=== PATIENT | female | born 1995 | race Caucasian/White ===

== ENCOUNTER 2018-08-20 09:40 | Emergency (ER) | payer MEDICAID, SELFPAY ==
[2018-08-20 09:53] VITALS: BP 125/76; PULSE 72; RESP 18; TEMP 37.1; O2SAT 99; BMI 28.0
--- NOTE | 2018-08-20 09:59 | HMH.EDUTC ---
[facility] – [place] Clinical Impression: Excessive vomiting during Disposition: Home, Self-Care Condition on Discharge: Good Instructions: DI for Hyperemesis Gravidarum, Hyperemesis Gravidarum, DI for Morning Sickness, Support (Alternative Therapy), Nausea of (Alternative Therapy) Additional Instructions: *Remember low blood sugar can cause nausea. Have a snack like an apple or glass of milk before bed. *Eat small frequent meals 4 to 6 times a day *Foods like cereal, crackers, toast, potatos and pretzels may help with nausea keep them at your bedside *Avoid spicy acidic foods *Suck on hard candy like peppermint or some sweet or sour candy may help Do not lie down immediately after eating Suggested Snacks to Eat August (Eat them, suck on them, or sniff them.) Bean (bean martínez soda, bean tea, bean jam on toast, bean snaps) Peppermint tea. Crackers. Jell-O. Flavored popsicles. Pretzels. Morning Sickness Tips for Food Food is your enemy and your friend. Eat even if you feel like you will be sick. Eventually, the food will make you feel better so it?s worth it in the long run. Don?t wait too long between meals and snacking. Eat a mixture of protein and carbs/sugars. For example, cheese and apples. In the morning, eat anything that appeals to you. A bowl of cereal is a good option. After you have eaten something appealing, try to eat protein like an egg. If you can eat this, it will carry you till your next snack or meal. Plan for snacking when you?ll be out of the house. Bring a bunch of snacks with you and carry them in your purse. Don ?t be like me and assume you?ll be fine. Prepare for the inevitable and bring food. Take medication as prescribed Follow up with family doctor or OBGYN for further treatment and evaluation of vomiting Straight to ER if any life threatening symptoms or signs of dehydration such as dry skin, tachyacardia, dizziness, feeling faint etc Prescriptions: Promethazine HCl [Phenergan 12.5mg tablet] 12.5 mg PO Q6H PRN #6 tab PRN Reason: Nausea Referrals: Provider,Referral, MD [Primary Care Provider] - As needed Forms: Work/School Release Time of Disposition: 10:22 Medical Decision Making - Harris Inquiry Pt receiving controlled substance: No Harris was queried for this patient: No Vital Signs: 08/20/18 09:53 Temperature 98.7 F Temperature Source Oral Pulse Rate [Right Brachial] 72 Respiratory Rate 18 Blood Pressure [Right Arm] 125/76 Blood Pressure Mean [Right Arm] 92 Blood Pressure Source [Right Arm] Automatic Cuff Blood Pressure Position [Right Arm] Sitting 02 Sat by Pulse Oximetry 99 Oxygen Delivery Method Room Air - Physician Consults Physician Consulted: Dr Stout Time: 10:03 Reason -: Gynocological Eval/Care Comment/Response: Dr Stout paged awaiting call back [phone] Dr Stout called back discussed patient complaining of vomiting and not being able to keep anything down and she had already tried dramamine advised safe for patient to have phenergan, zofran or reglan [facility] – [place] HPI - General Stated complaint: 7 weeks and throwing up Time Seen by Provider: 08/20/18 10:00 Mode of Arrival: Family Vehicle Source of Information: Patient Limitations: No Limitations Description of Symptoms (Recalled from Triage Doc. by RN): c/o nausea and vomiting and is 7 weeks HEENT Symptoms (Recalled from RN notes): No Resp Symptoms (Recalled from RN notes): No Skin Symptoms (Recalled from RN notes): No MS Symptoms (Recalled from RN notes): No Functional Status (Recalled from RN notes): n/a - History of Present Illness Provider Complaint: Patient states that she is 7 weeks OB and has been having nausea and vomiting State that she had this before with her other pregancy State that she has been taking over the counter Dramamine but it hasn't helped States that they give her something durning her last pregnacy to help with vomiting but she i
--- NOTE | 2018-08-20 10:03 | ED_ITS ---
[facility] [place]ression: Excessive vomiting during Disposition: Home, Self-Care Condition on Discharge: Good Instructions: DI for Hyperemesis Gravidarum, Hyperemesis Gravidarum, DI for Morning Sickness, Support (Alternative Therapy), Nausea of (Alternative Therapy) Additional Instructions: *Remember low blood sugar can cause nausea. Have a snack like an apple or glass of milk before bed. *Eat small frequent meals 4 to 6 times a day *Foods like cereal, crackers, toast, potatos and pretzels may help with nausea keep them at your bedside *Avoid spicy acidic foods *Suck on hard candy like peppermint or some sweet or sour candy may help Do not lie down immediately after eating Suggested Snacks to Eat * August (Eat them, suck on them, or sniff them.) * Bean (bean martínez soda, bean tea, bean jam on toast, bean snaps) * Peppermint tea. * Crackers. * Jell-O. * Flavored popsicles. * Pretzels. Morning Sickness Tips for Food * Food is your enemy and your friend. Eat even if you feel like you will be sick. Eventually, the food will make you feel better so it?s worth it in the long run. * Don?t wait too long between meals and snacking. * Eat a mixture of protein and carbs/sugars. For example, cheese and apples. * In the morning, eat anything that appeals to you. A bowl of cereal is a good option. After you have eaten something appealing, try to eat protein like an egg. If you can eat this, it will carry you till your next snack or meal. * Plan for snacking when you?ll be out of the house. Bring a bunch of snacks with you and carry them in your purse. Don * ?t be like me and assume you?ll be fine. Prepare for the inevitable and bring food. Take medication as prescribed Follow up with family doctor or OBGYN for further treatment and evaluation of vomiting Straight to ER if any life threatening symptoms or signs of dehydration such as dry skin, tachyacardia, dizziness, feeling faint etc Prescriptions: Promethazine HCl [Phenergan 12.5mg tablet] 12.5 mg PO Q6H PRN #6 tab PRN Reason: Nausea Referrals: Provider,Referral, MD [Primary Care Provider] - As needed Forms: Work/School Release Time of Disposition: 10:22 Medical Decision Making - Harris Inquiry Pt receiving controlled substance: No Harris was queried for this patient: No Vital Signs: 08/20/18 09:53 Temperature 98.7 F Temperature Source Oral Pulse Rate [Right Brachial] 72 Respiratory Rate 18 Blood Pressure [Right Arm] 125/76 Blood Pressure Mean [Right Arm] 92 Blood Pressure Source [Right Arm] Automatic Cuff Blood Pressure Position [Right Arm] Sitting 02 Sat by Pulse Oximetry 99 Oxygen Delivery Method Room Air - Physician Consults Physician Consulted: Dr Stout Time: 10:03 Reason -: Gynocological Eval/Care Comment/Response: Dr Stout paged awaiting call back [phone] Dr Stout called back discussed patient complaining of vomiting and not being able to keep anything down and she had already tried dramamine advised safe for patient to have phenergan, zofran or reglan [facility] [place] - General Stated complaint: 7 weeks and throwing up Time Seen by Provider: 08/20/18 10:00 Mode of Arrival: Family Vehicle Source of Information: Patient Limitations: No Limitations Description of Symptoms (Recalled from Triage Doc. by RN): c/o nausea and vomiting and is 7 weeks HEENT Symptoms (Recalled from RN notes): No
[2018-08-20 10:23] VITALS: BP 125/76; PULSE 72; RESP 18; TEMP 37.1; O2SAT 99
== END 2018-08-20 10:26 | disposition home or self-care (01) ==
PROVIDERS: Emergency Provider Nurse Practitioner
DX: O21.0 Mild hyperemesis gravidarum (principal); Z88.0 Allergy status to penicillin; Z91.040 Latex allergy status; F17.210 Nicotine dependence, cigarettes, uncomplicated
CPT/HCPCS: 99201

== ENCOUNTER 2020-01-21 10:15 | Emergency (ER) | payer OTHER, SELFPAY ==
[2020-01-21 10:20] VITALS: BP 123/90; PULSE 78; RESP 16; TEMP 37; O2SAT 98; BMI 29.2
[2020-01-21 10:24] VITALS: BMI 35.9
--- NOTE | 2020-01-21 10:32 | XR_ITS ---
PROCEDURE: XR PELVIS MIN 3V CLINICAL INDICATION: trauma Posttraumatic pain COMPARISON: No exams were available for comparison TECHNIQUE: XR Pelvis AP View FINDINGS: No fracture or dislocation is evident. Mild sclerosis of the SI joints No lytic or blastic change. IMPRESSION: No acute findings. Dictated by: Jose Garrison MD 01/21/2020 11:47 Jose Garrison MD in [place] 01/21/2020 11:47
--- NOTE | 2020-01-21 10:32 | XR_ITS ---
PROCEDURE: XR COCCYX 2V CLINICAL INDICATION: trauma Posttraumatic pain COMPARISON: No exams were available for comparison FINDINGS: No fracture or dislocation. No lytic or blastic change. There is normal mineralization. There is mild sclerosis of the SI joints. Other findings:None. IMPRESSION: Sclerosis of SI joints otherwise negative Dictated by: Jose Garrison MD 01/21/2020 11:46 Jose Garrison MD in [place] 01/21/2020 11:46
--- NOTE | 2020-01-21 10:34 | HMH.EDFALL ---
ED Disposition Clinical Impression: Accidental fall Qualifiers: Encounter type: initial encounter Qualified Code(s): W19.XXXA - Unspecified fall, initial encounter Coccyx sprain Qualifiers: Encounter type: initial encounter Qualified Code(s): S33.8XXA - Sprain of other parts of lumbar spine and pelvis, initial encounter Disposition: Home, Self-Care Condition on Discharge: Good Instructions: Coccydynia Prescriptions: Ibuprofen [Ibuprofen 800mg Tablet] 800 mg PO TIDP PRN #20 tab PRN Reason: Moderate Pain Transmission Status: Pending to [id number] Referrals: PCP,No [Primary Care Provider] - Javad Soriano MD [Staff Physician] - - Critical Care Critical Care Time: No Attestation: On 01/21/20, the high probability of a clinically significant, sudden or life threatening deterioration of the following system(s) required my full and direct attention, intervention and personal management. The time I documented below is in addition to time spent performing reported procedures but includes the following listed in this critical care notation. Medical Decision Making - Medical Records Medical records reviewed: Yes: I reviewed the patient's medical records. - Harris Inquiry Pt receiving controlled substance: No Vital Signs: 01/21/20 10:20 01/21/20 11:47 Temperature 98.6 F Temperature Source Oral Pulse Rate [Right Radial] 78 77 Respiratory Rate 16 16 Blood Pressure [Right Arm] 123/90 117/78 Blood Pressure Mean [Right Arm] 101 91 Blood Pressure Source [Right Arm] Automatic Cuff Automatic Cuff Blood Pressure Position [Right Arm] Sitting Sitting 02 Sat by Pulse Oximetry 98 99 Oxygen Delivery Method Room Air Room Air - Lab Data Lab Results 01/21/20 10:25: Urine HCG, Qual Negative Orders (Tests/Meds): ED MEDICATIONS Discontinued Medications Generic Name Dose Route Start Last Admin Trade Name Freq PRN Reason Stop Dose Admin Acetaminophen 1,000 mg 01/21/20 10:32 01/21/20 10:37 Acetaminophen 500mg Tab PO 01/21/20 10:33 1,000 mg ONCE ONE Administration - Radiology Data #1 Image(s): Pelvis, Other (coccyx) Image Reviewed: Yes I reviewed the patient's radiology results, Yes I reviewed the patient's radiology image, Yes I have reviewed radiologist's interpretation Preliminary Findings: Normal/NAD, No Fracture Seen - Reevaluation(s) Time: 11:52 Reevaluation #1: On reevaluation, patient is feeling better. There is no evidence of fracture. Patient is to follow-up with PCP in 48 hours. Given strict return precautions. Verbalized understanding. Medical Decision Narrative: This is a 24-year-old female presenting to the emergency department after next fall. She does have some posterior coccyx pain. Concern for fracture. Imaging obtained. Fall HPI - General Chief Complaint: Fall Stated Complaint: WC 01/21/20 fall, back butt pain Time Seen by Provider: 01/21/20 10:30 Mode of Arrival: Ambulatory Limitations: No Limitations Description of Symptoms (Recalled from ER Triage Doc. by RN): Pt c/o pain coccyx area r/t fall at work. Pt reports she slipped on wet floor causing her to fall. - History of Present Illness HPI Narrative: This is a 24-year-old female presented to the emergency department after an accidental fall. Patient states that she was walking into work when she slipped on some tile in the lobby. She fell backwards and landed on her backside. She is complaining of some pain in her tailbone as well as her pelvis area. She was able to get to her feet with some mild assistance. She is able to walk, however does endorse pain. It is a dull pain located in her backside. She did not sustain any head trauma, loss of consciousness. No other musculoskeletal injuries. Patient is up-to-date on immunizations. No chest pain or shortness of breath. No abdominal pain or vomiting. - Related Data Home Medications Medication Instructions Recorded C
--- NOTE | 2020-01-21 10:35 | PC.NURSE ---
blaine notified of xray orders, spoke with amber
[2020-01-21 10:37] LABS: Urine Pregnancy, HCG Qual. Negative (Negative)
--- NOTE | 2020-01-21 11:29 | PC.NURSE ---
contacted radiology to request coccyx film be read per ER MD request, spoke with Deepa
[2020-01-21 11:47] VITALS: BP 117/78; PULSE 77; RESP 16; O2SAT 99
[2020-01-21 11:57] VITALS: BP 113/72; PULSE 73; RESP 16; TEMP 37; O2SAT 99
== END 2020-01-21 12:03 | disposition home or self-care (01) ==
PROVIDERS: Emergency Provider Emergency Medicine
DX: S33.8XXA Sprain of other parts of lumbar spine and pelvis, initial encounter (principal); W01.0XXA Fall on same level from slipping, tripping and stumbling without subsequent striking against object, initial encounter; Y92.69 Other specified industrial and construction area as the place of occurrence of the external cause; Y99.0 Civilian activity done for income or pay; Z88.0 Allergy status to penicillin
CPT/HCPCS: 72190; 72220; 81025; 99283

== ENCOUNTER → 2020-06-06 14:01 | Outpatient (CLI) | payer MEDICAID, SELFPAY ==
[2020-06-06 16:05] LABS: Basophils % 0.6 % (0.1-2.0); Eosinophils # 0.1 K/mm3 (0.0-0.4); Eosinophils % 2.2 % (0.1-12.0); Hemoglobin 12.7 g/dL (12.2-16.2); Lymphocytes # 2.5 K/mm3 (0.7-4.5); Lymphocytes % 39.3 % (10-50); Mean Corpuscular HGB Conc 32.6 g/dL (31.8-35.4); Mean Corpuscular Hemoglobin 26.5 pg (27.0-31.2); Mean Corpuscular Volume 81.3 fl (81-99); Mean Platelet Volume 8.1 fl (7.4-10.4); Monocytes # 0.3 K/mm3 (0.1-1.0); Monocytes % 4.1 % (1.7-9.3); Neutrophils # 3.5 K/mm3 (1.8-7.8); Neutrophils % 53.8 % (37.0-80.0); Platelet Count 229 K/mm3 (142-424); Red Cell Distribution Width 13.2 % (11.5-17.5); White Blood Count 6.4 K/mm3 (4.8-10.8)
[2020-06-06 16:07] LABS: Alanine Aminotransferase 37 U/L (12-78); Albumin Level 4.3 g/dl (3.5-5.0); Albumin/Globulin Ratio 1.7 (1.1-1.8); Alkaline Phosphatase 78 U/L (38-126); Anion Gap 11.9 mEq/L (5-15); Aspartate Amino Transferase 30 U/L (14-36); Bilirubin,Total 0.5 mg/dl (0.2-1.3); Blood Urea Nitrogen 10 mg/dl (7-17); Calcium 9.4 mg/dl (8.4-10.2); Carbon Dioxide 23 mmol/L (22.0-30.0); Chloride 108 mmol/L (98-107); Chol/HDL Ratio 3.4 (1-3.5); Cholesterol 196 mg/dl (140-200); Estimated Glomerular Filt Rate 150 ml/min (>60); GFR (African American) 182 ML/MIN (>60); Globulin 2.5 g/dL (1.3-3.2); Glucose 90 mg/dl (74-100); HDL Cholesterol 57 mg/dl (40-60); Potassium 3.9 mmoL/L (3.5-5.1); Sodium 139 mmol/L (136-145); Total Protein,Serum 6.8 g/dl (6.3-8.2); Triglycerides 143 mg/dl (30-150); VLDL Cholesterol 29 mg/dL (0-40)
[2020-06-06 16:19] LABS: Direct LDL Cholesterol 113.52 mg/dL (100-129)
[2020-06-06 16:26] LABS: Free T4 (Free Thyroxine) 1.23 ng/dl (0.78-2.19)
[2020-06-06 16:28] LABS: 25-OH Vitamin D, Total < 12.8 ng/mL (30-100)
[2020-06-06 16:41] LABS: Thyroid Stimulating Hormone 1.22 uIU/mL (0.465-4.68)
== END ==
PROVIDERS: Visit Provider Emergency Medicine
DX: E66.9 Obesity, unspecified (principal); E55.9 Vitamin D deficiency, unspecified; R53.83 Other fatigue; M54.14 Radiculopathy, thoracic region; J45.909 Unspecified asthma, uncomplicated; F17.210 Nicotine dependence, cigarettes, uncomplicated; Z68.30 Body mass index [BMI] 30.0-30.9, adult
CPT/HCPCS: 80053; 80061; 82306; 84439; 84443; 85025

== ENCOUNTER 2020-08-07 09:57 | Emergency (ER) | payer MEDICAID, SELFPAY ==
[2020-08-07 10:15] VITALS: BP 134/91; PULSE 92; RESP 19; TEMP 36.6; O2SAT 98; BMI 25.6
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
--- NOTE | 2020-08-07 11:18 | XR_ITS ---
PROCEDURE: XR THORACIC SPINE 2V CLINICAL INDICATION: PAIN COMPARISON: CR CXR2V XR chest 2V from 03/30/2018 FINDINGS: No fracture or dislocation. No lytic or blastic change. There is normal mineralization. There is normal alignment. There is very minimal upper thoracic curvature convex right. Other findings:None. IMPRESSION: No acute finding Dictated by: Jose Garrison MD 08/07/2020 11:35 Jose Garrison MD in [place] 08/07/2020 11:35
[2020-08-07 11:20] LABS: UTC Pregnancy Test, Urine Negative (Negative)
[2020-08-07 11:39] VITALS: BP 134/91; PULSE 92; RESP 19; TEMP 36.6; O2SAT 98
== END 2020-08-07 11:42 | disposition home or self-care (01) ==
PROVIDERS: Emergency Provider Nurse Practitioner; PCP Emergency Medicine
DX: M54.6 Pain in thoracic spine (principal)
CPT/HCPCS: 72070; 81025; 99202; G0463

== ENCOUNTER 2021-03-29 12:48 | Emergency (ER) | payer MEDICAID, SELFPAY ==
[2021-03-29 14:30] VITALS: BP 0/0; PULSE 0; RESP 0; TEMP -17.7; TEMP 0
== END 2021-03-29 14:35 | disposition left against medical advice (07) ==
LOC: UTC 12:51
PROVIDERS: Emergency Provider Nurse Practitioner Family; PCP Emergency Medicine
DX: Z53.21 Procedure and treatment not carried out due to patient leaving prior to being seen by health care provider (principal)

== ENCOUNTER 2022-06-19 21:37 | Emergency (ER) | payer MEDICAID, SELFPAY ==
[2022-06-19 22:05] VITALS: BP 137/99; PULSE 102; RESP 16; TEMP 37; O2SAT 98; BMI 26.3
[2022-06-19 22:15] VITALS: BP 137/99; PULSE 106; O2SAT 98
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
[2022-06-20 01:08] VITALS: BP 128/75; PULSE 99; RESP 16; TEMP 37; O2SAT 99
== END 2022-06-20 01:16 | disposition home or self-care (01) ==
PROVIDERS: Emergency Provider Emergency Medicine
DX: T74.21XA Adult sexual abuse, confirmed, initial encounter (principal); F17.210 Nicotine dependence, cigarettes, uncomplicated
CPT/HCPCS: 99284; 99285

== ENCOUNTER 2023-01-02 09:18 | Emergency (ER) | payer MEDICAID, SELFPAY ==
[2023-01-02 09:30] VITALS: BP 104/68; BP 107/70; PULSE 87; PULSE 98; RESP 20; TEMP 36.8; O2SAT 100; BMI 25.6
--- NOTE | 2023-01-02 09:56 | HMH.EDGENADL ---
Discharge Plan Disposition Patient Disposition: Home, Self-Care Prescriptions Prescriptions: No Action Nexplanon 68 mg implant 68 mg SUBDERMAL ONCE albuterol sulfate 90 mcg/actuation HFA aerosol inhaler 2 puff INHALATION Q6HP PRN (Reason: Shortness Of Breath Or Wheezing) Qty: 8.5 12RF ipratropium-albuterol 0.5 mg-3 mg(2.5 mg base)/3 mL solution for nebulization 3 ml INHALATION Q4-6H PRN (Reason: shortness of breath or wheezing) Qty: 180 0RF budesonide-formoterol [Symbicort] 80-4.5 mcg/actuation HFA aerosol inhaler See Rx Instructions .ROUTE .COMPLEX Qty: 10.2 1RF Dose Instruction: USE 1 INHALATION BY MOUTH TWICE DAILY Rx Instructions: USE 1 INHALATION BY MOUTH TWICE DAILY cholecalciferol (vitamin D3) 1,250 mcg (50,000 unit) capsule See Rx Instructions .ROUTE .COMPLEX Qty: 12 0RF Dose Instruction: Take 1 capsule by mouth once a week Rx Instructions: Take 1 capsule by mouth once a week cholecalciferol (vitamin D3) 1,000 UNIT capsule 25 mcg PO DAILY Referrals Follow up/Referrals: Javad Soriano MD [Primary Care Provider] - See instructions Activity Restrictions/Add. Instructions Additional Instructions/Restrictions: Return with any persistent headache changes in vision coordination numbness weakness tingling in your arms or legs high fever or any other concern. Otherwise follow-up with primary care doctor as needed. Clinical Impressions Clinical Impression: Headache Discharge ED Provider: Rui Stout General Adult HPI General Chief complaint: Headache Stated complaint: h/a for 3 days Time Seen by Provider: 01/02/23 09:48 Mode of Arrival: Ambulatory Source of Information: Patient Limitations: No Limitations Description of Symptoms (Recalled from ER Triage Doc. by RN): pt to ed c/o headache x3 days. pt states it was a gradual onset that has progressed. pt denies injury. pt reports mild nausea this morning. History of Present Illness HPI narrative: Patient is a 27-year-old female without any significant past medical history today presenting with headache. States this is slowly worsened over the last 3 days. No injuries that she is aware of no significant neck stiffness no fevers or chills she does states she has a low bit of pain with extraocular movements. There is no sudden component of this. She denies any other neurologic symptoms such as changes in vision coordination no vertigo or dizziness no numbness weakness or tingling in her arms or legs. She has had headaches in the past has never been diagnosed with migraine she states normally gets when she is dehydrated or has not had enough caffeine. Does not have regular headaches. Related Data Home Medications Medication Instructions Recorded Confirmed etonogestrel 68 mg subdermal 68 mg subdermal ONCE control 06/06/20 07/08/21 implant (Nexplanon) cholecalciferol (vitamin D3) 25 25 mcg PO DAILY Supplement 08/07/20 07/08/21 mcg (1,000 unit) capsule Previous Rx's Medication Instructions Recorded albuterol sulfate 90 mcg/actuation 2 puff inhalation Q6HP PRN 07/29/20 aerosol inhaler Shortness Of Breath Or Wheezing #8.5 grams ipratropium 0.5 mg-albuterol 3 mg 3 ml inhalation Q4-6H PRN 05/11/21 (2.5 mg base)/3 mL nebulization shortness of breath or wheezing soln #180 mL budesonide-formoterol HFA 80 See Rx Instructions .Route 10/12/21 mcg-4.5 mcg/actuation aerosol .COMPLEX #10.2 grams inhaler (Symbicort) cholecalciferol (vitamin D3) 1,250 See Rx Instructions .Route 02/15/22 mcg (50,000 unit) capsule .COMPLEX #12 caps Allergies Allergy/AdvReac Type Severity Reaction Status Date / Time latex Allergy Verified 07/08/21 16:04 penicillin G Allergy Verified 07/08/21 16:04 [facility] Disclaimer: The information contained in this section may have been updated after the patient was seen, as this information can be updated by other users. Social History Smoking Status: [place]
[2023-01-02 10:00] VITALS: BP 97/62; PULSE 97; RESP 18; O2SAT 100
[2023-01-02 10:30] VITALS: BP 101/48; PULSE 89; RESP 18; O2SAT 100
[2023-01-02 11:14] VITALS: BP 101/48; PULSE 89; RESP 16; TEMP 36.7
== END 2023-01-02 11:17 | disposition home or self-care (01) ==
PROVIDERS: Emergency Provider Student in an Organized Health Care Education/Training Program; PCP Emergency Medicine
DX: R51.9 Headache, unspecified (principal)
CPT/HCPCS: 96361; 96374; 96375; 99284

== ENCOUNTER 2023-04-14 09:12 | Emergency (ER) | payer MEDICAID, SELFPAY ==
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
[2023-04-14 09:40] VITALS: BP 131/72; PULSE 71; RESP 18; TEMP 37.2; O2SAT 98; BMI 25.7
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
[2023-04-14 10:37] VITALS: BP 131/72; PULSE 71; RESP 18; TEMP 37.2; O2SAT 98
== END 2023-04-14 10:39 | disposition home or self-care (01) ==
PROVIDERS: Emergency Provider Nurse Practitioner; PCP Internal Medicine
DX: S63.617A Unspecified sprain of left little finger, initial encounter (principal); J45.909 Unspecified asthma, uncomplicated; W50.0XXA Accidental hit or strike by another person, initial encounter
CPT/HCPCS: 73130; 99212; 99213; G0463

== ENCOUNTER 2023-11-30 08:48 | Outpatient (CLI) | payer MEDICAID, SELFPAY ==
--- NOTE | 2023-11-30 08:48 | US_ITS ---
PROCEDURE: US TRANSVAGINAL CLINICAL INDICATION: PAINFUL PERIODS COMPARISON: No exams were available for comparison FINDINGS: Transvaginal sonographic images of the pelvis were obtained. UTERUS: 9.0cm x 7.5cmx 5.3cm anteverted with a combined endometrial thickness of 12.1mm. There are small nabothian cysts within the cervix. scars are seen. LEFT OVARY: 3.8 cmx3.0cmx2.4cm with a volume of 14.5ml. There are multiple small peripheral follicles. RIGHT OVARY: 2.1cmx 1.8 cmx3.0cm with a volume of 5.9ml. There are multiple small follicles. Both ovaries are seen and appear normal. Doppler flow to both ovaries are seen. There is moderate fluid in the cul-de-sac. IMPRESSION: 1. Anteverted uterus normal in shape and size. The endometrium is 12 mm and trilaminar. 2. Both ovaries are seen and appear normal. They have multiple small peripheral follicles. 3. There is moderate fluid in the cul-de-sac. Dictated by: Alverto Carl MD 12/01/2023 07:03 Alverto Carl MD in [place] 12/01/2023 07:03
== END 2023-11-30 23:59 | disposition home or self-care (01) ==
LOC: RAD 08:48
PROVIDERS: PCP Obstetrics & Gynecology; Visit Provider Obstetrics & Gynecology
DX: N94.6 Dysmenorrhea, unspecified (principal); Z00.00 Encounter for general adult medical examination without abnormal findings
CPT/HCPCS: 76830

== ENCOUNTER 2023-12-07 08:21 | Outpatient (CLI) | payer MEDICAID, SELFPAY ==
[2023-12-07 18:49] LABS: Adenovirus,PCR Not Detected (NotDetected); Bordetella Pertussis Not Detected (NotDetected); Chlamydophila Pneumoniae, PCR Not Detected (NotDetected); Coronavirus 19, PCR Not Detected (NotDetected); Coronavirus 229E Not Detected (NotDetected); Coronavirus NL63 Not Detected (NotDetected); Coronavirus OC43 Not Detected (NotDetected); Coronovirus HKU1,PCR Not Detected (NotDetected); Human Metapneumovirus Not Detected (NotDetected); Influenza A, PCR Not Detected (NotDetected); Influenza AH1, 2009 Not Detected (NotDetected); Influenza AH1, PCR Not Detected (NotDetected); Influenza AH3,PCR Not Detected (NotDetected); Influenza B, PCR Not Detected (NotDetected); Mycoplasma Pneumoniae, PCR Not Detected (NotDetected); Parainfluenza 1, PCR Not Detected (NotDetected); Parainfluenza 2, PCR Not Detected (NotDetected); Parainfluenza 3, PCR Not Detected (NotDetected); Parainfluenza 4, PCR Not Detected (NotDetected); Respiratory Syncytial Virus Not Detected (NotDetected); Rhinovirus/Enterovirus Not Detected (NotDetected)
== END 2023-12-07 23:59 | disposition home or self-care (01) ==
LOC: LAB.DROPOF 12-08 10:03
PROVIDERS: PCP Nurse Practitioner Family; Visit Provider Nurse Practitioner Family
DX: J06.9 Acute upper respiratory infection, unspecified (principal); J02.9 Acute pharyngitis, unspecified
CPT/HCPCS: 87070; 87265; 87486; 87581; 87632; 87635

== ENCOUNTER 2023-12-09 08:37 | Outpatient (CLI) | payer MEDICAID, SELFPAY ==
[2023-12-09 08:58] LABS: Basophils % 0.6 % (0.1-2.0); Eosinophils # 0.1 K/mm3 (0.0-0.4); Hematocrit 36.6 % (37.0-47.0); Hemoglobin 11.9 g/dL (12.2-16.2); Lymphocytes # 1.5 K/mm3 (0.7-4.5); Lymphocytes % 32.9 % (10-50); Mean Corpuscular HGB Conc 32.6 g/dL (31.8-35.4); Mean Corpuscular Hemoglobin 27.5 pg (27.0-31.2); Mean Corpuscular Volume 84.4 fl (81-99); Mean Platelet Volume 6.7 fl (7.4-10.4); Monocytes # 0.3 K/mm3 (0.1-1.0); Monocytes % 6.2 % (1.7-9.3); Neutrophils # 2.6 K/mm3 (1.8-7.8); Neutrophils % 57.3 % (37.0-80.0); Platelet Count 256 K/mm3 (142-424); Red Blood Count 4.34 M/mm3 (4.20-5.40); Red Cell Distribution Width 13.1 % (11.5-17.5); White Blood Count 4.5 K/mm3 (4.8-10.8)
[2023-12-09 10:02] LABS: Albumin Level 4.5 g/dl (3.5-5.0); Chloride 103 mmol/L (98-107); Potassium 3.7 mmoL/L (3.5-5.1); Sodium 138 mmol/L (136-145)
[2023-12-09 10:14] LABS: Alanine Aminotransferase 101 U/L (12-78); Alkaline Phosphatase 72 U/L (38-126); Anion Gap 13.7 mEq/L (5-15); Aspartate Amino Transferase 68 U/L (14-36); Bilirubin,Total 0.4 mg/dl (0.2-1.3); Blood Urea Nitrogen 8 mg/dl (7-17); Calcium 9.4 mg/dl (8.4-10.2); Carbon Dioxide 25 mmol/L (22.0-30.0); Chol/HDL Ratio 3.7 (1-3.5); Cholesterol 223 mg/dl (140-200); Estimated Glomerular Filt Rate 147 ml/min (>60); GFR (African American) 178 ML/MIN (>60); Globulin 2.3 g/dL (1.3-3.2); Glucose 86 mg/dl (74-100); HDL Cholesterol 60 mg/dl (40-60); Total Protein,Serum 6.8 g/dl (6.3-8.2); Triglycerides 75 mg/dl (30-150); Uric Acid 4.4 mg/dl (2.5-6.2); VLDL Cholesterol 15 mg/dL (0-40)
[2023-12-09 10:23] LABS: Free Thyroxine Index 3.3 ug/dL (5.93-13.13); T4 (Thyroxine) 10.9 ug/dl (5.53-11.0); Triiodothryronine (T3) Uptake 30 % (23.5-40.5)
[2023-12-09 10:25] LABS: Direct LDL Cholesterol 129.16 mg/dL (100-129)
[2023-12-09 10:37] LABS: Thyroid Stimulating Hormone 0.52 uIU/mL (0.465-4.68)
[2023-12-09 11:03] LABS: Vitamin B12 818 pg/mL (239-931)
[2023-12-10 09:32] LABS: Estradiol 33.6 pg/mL (.); FSH 5.4 mIU/mL (.); Progesterone 0.1 ng/mL (.)
[2023-12-10 11:34] LABS: Insulin Level Total 10.9 uIU/mL (2.6-24.9)
[2023-12-14 01:08] LABS: Vitamin B1 89.6 nmol/L (66.5-200.0)
[2023-12-16 00:12] LABS: Vitamin B6 11.7 ug/L (3.4-65.2)
[2023-12-19 03:37] LABS: Testosterone, Total, LC/MS 17 ng/dL (.)
[2023-12-20 09:14] LABS: 1,25 Dihydroxy Vitamin D 40 pg/mL (.); 1,25-Dihydroxy, Vitamin D-2 <10 pg/mL (.); 1,25-Dihydroxy, Vitamin D-3 40 pg/mL (.)
== END 2023-12-09 23:59 | disposition home or self-care (01) ==
LOC: LAB 08:38
PROVIDERS: Visit Provider Obstetrics & Gynecology
DX: N94.6 Dysmenorrhea, unspecified (principal); Z00.00 Encounter for general adult medical examination without abnormal findings
CPT/HCPCS: 36415; 80050; 80053; 80061; 82607; 82652; 82670; 83001; 83036; 83525; 84144; 84207; 84403; 84425; 84436; 84443; 84479; 84550; 85025

== ENCOUNTER 2024-01-24 08:02 | Outpatient (CLI) | payer MEDICAID, SELFPAY | END 2024-01-24 23:59 | disposition home or self-care (01) | LOC: LAB.DROPOF 01-26 08:03 | PROVIDERS: PCP Student in an Organized Health Care Education/Training Program; Visit Provider Student in an Organized Health Care Education/Training Program | DX: J02.9 Acute pharyngitis, unspecified (principal) | CPT/HCPCS: 87070 ==

== ENCOUNTER 2024-06-12 09:08 | Outpatient (CLI) | payer MEDICAID, SELFPAY | END 2024-06-12 23:59 | disposition home or self-care (01) | LOC: LAB.DROPOF 06-13 12:01 | PROVIDERS: PCP Nurse Practitioner; Visit Provider Nurse Practitioner | DX: R35.0 Frequency of micturition (principal) | CPT/HCPCS: 87086; 87088; 87186 ==

== ENCOUNTER 2024-12-11 09:46 | Emergency (ER) | payer MEDICAID, SELFPAY ==
[2024-12-11 09:57] VITALS: BP 124/84; PULSE 107; RESP 19; TEMP 37.3; O2SAT 99; BMI 27.4
--- NOTE | 2024-12-11 09:58 | ECG_ITS ---
APPROVED REPORT Exam: Resting ECG HR:78 bpm ECG Measurements Heart Rate 78 AXES FL 140 P 59 QRSd 79 QRS 57 QT 352 T 45 QTc 385 Conclusion SINUS RHYTHM NORMAL ECG Electronically signed by : TRUE MUNOZ, 12/13/2024 09:26:23
[2024-12-11 10:00] VITALS: BP 121/84; PULSE 81; RESP 14; O2SAT 95
--- OUTSIDE RECORDS SUMMARY | 2024-12-11 10:06 | XMS_ITS | Encounter Summary ---
Author Organization [employer] ([place], [place], [place], [place]) Address [address] [place] [address] Care Team Providers Care Substitute Teacher Name Role Phone Unavailable Primary Care Provider Unavailabl e Encounter Details Date Type Department Care Team (Late st Contact Info) Description 08/21/2018 Transcribed Document [facility] [place] [facility] [place] [address] ProviderTamie MD [address] [place] [address] Social History Tobacco Use Types Packs/Day Years Used Date Smoking Tobacco: Never Assessed Comments Unknown Sex and Gender Information Value Date Recorded Sex Assigned at Not on file Legal Sex Female 6:35 PM CDT Gender Identity Not on file Sexual Orientation Not on file documented as of this encounter Miscellaneous Notes * [employer] Conversion Note - Tamie ProviderMD - 08/21/2018 2:04 PM CDT ED Triage Entered On: 08/21/2018 14:15 EDT Performed On: 08/21/2018 14:11 EDT by SUKH DELGADO RN ED Triage Across the Room Triage Date/Time : 08/21/2018 14:11 EDT Chief Complaint : c/o n/v x one week, cant hold anything down, pt is approx 7 weeks . pale in color SUKH DELGADO RN - 08/21/2018 14:11 EDT DCP GENERIC CODE Tracking Acuity : 3 - Urgent Tracking Group : [facility] [place] SUKH DELGADO RN - 08/21/2018 14:11 EDT Mode of Arrival : Ambulatory Transported to ED by : Private vehicle To Room Via : Ambulate Accompanied By : Unaccompanied ED Vital Signs : Document Height & Weight : Document ED Allergies : Document ED Reason for Visit : Document Tetanus Immunization : Unknown SUKH DELGADO RN - 08/21/2018 14:11 EDT Infectious Disease History Infectious Disease History : None Fever/Chills Last 48 Hours : No Travel To Regions with Travel Advisories : No Travel Outside [place] Within Last 30 Days : No Contact With Traveler to Advisory Region : No Tuberculosis Symptoms : None SUKH DELGADO RN - 08/21/2018 14:11 EDT Vital Signs ED Temperature Source : Oral Temperature Mode : Fahrenheit Temperature, Fahrenheit : 98.2 Deg F ED Pain : No Clinical Temperature, C : 36.8 Deg C Oxygen Therapy Mode : Room air Peripheral Pulse Rate : 80 bpm Respiratory Rate : 18 Breaths/Min Systolic Blood Pressure : 113 mmHg Diastolic Blood Pressure : 55 mmHg (LOW) Oxygen Saturation : 100 % SUKH DELGADO RN - 08/21/2018 14:11 EDT Allergy (As Of: 08/21/2018 14:15:30 EDT) Allergies (Active) Latex Estimated Onset Date: Unspecified ; Created By: SUKH DELGADO RN; Reaction Status: Active ; Category: Environment ; Substance: Latex ; Type: Allergy ; Updated By: SUKH DELGADO RN; Reviewed Date: 08/21/2018 14:13 EDT penicillin Estimated Onset Date: Unspecified ; Created By: SUKH DELGADO RN; Reaction Status: Active ; Category: Drug ; Substance: penicillin ; Type: Allergy ; Updated By: SUKH DELGADO RN; Reviewed Date: 08/21/2018 14:13 EDT Diagnosis Control ED (As Of: 08/21/2018 14:15:30 EDT) Problems(Active) No Chronic Problems ([employer]erner :NKP ) Name of Problem: No Chronic Problems ; Recorder: SUKH DELGADO RN; Code: NKP ; Last Updated: 08/21/2018 14:12 EDT ; Life Cycle Date: 08/21/2018 ; Life Cycle Status: Active ; Vocabulary: Cerner Diagnoses(Active) Nausea Date: 08/21/2018 ; Diagnosis Type: Reason For Visit ; Confirmation: Complaint of ; Clinical Dx: Nausea ; Classification: Medical ; Clinical Service: Emergency medicine ; Code: PNED ; Probability: 0 ; Diagnosis Code: [id number] ED Height and Weight Height Source : Stated Height Entry Format : [place] Height, Feet : 5 ft(Converted to: 152 cm, 60 Inch) Height, Inches : 2 Inch(Converted to: 0 ft 2 Inch, 5.08 cm) Clinical Height : 157.48 cm Weight Source, ED : Standing scale Weight Entry Format : [place] Weight, Pounds : 153 lb Clinical Dosing Weight : 69.55 kg Body Surface Area (BSA) : 1.71 m2 Body Mass Index : 28 kg/m2 (HI) [place] Body Weight (IBW) : 49.73 kg SUKH DELGADO RN - 08/21/2018 14:11 EDT documented in this encounter Plan of Treatment Not on file documented as of this encounter Visit Diagnoses Not on filedocumented in this encounter
--- OUTSIDE RECORDS SUMMARY | 2024-12-11 10:06 | XMS_ITS | Encounter Summary ---
Author Organization [employer] ([place], [place], [place], [place]) Address [address] [place] [address] Care Team Providers Care Security Officer Name Role Phone Unavailable Primary Care Provider Unavailabl e Encounter Details Date Type Department Care Team (Late st Contact Info) Description 05/09/2019 Transcribed Document [facility] [place] [facility] [place] [address] ProviderTamie MD [facility] [place] [address] Social History Tobacco Use Types Packs/Day Years Used Date Smoking Tobacco: Never Assessed Comments Unknown Sex and Gender Information Value Date Recorded Sex Assigned at Not on file Legal Sex Female 6:35 PM CDT Gender Identity Not on file Sexual Orientation Not on file documented as of this encounter Miscellaneous Notes * [employer] Conversion Note - Tamie ProviderMD - 05/09/2019 11:22 AM ALLERGIST/IMMUNOLOGIST PHYSICIAN [facility] Authorization Entered On: 05/09/2019 11:25 EST Performed On: 05/09/2019 11:22 EST by KING BECKETT RN-Utilization Review Primary Insurance Authorization Authorization and Policy Numbers : Insurance 1 Health Plan: [employer] Policy Number: [id number] Authorization Number: DENIED- SENT TO APPEALS Insurance Primary Name : [employer] Policy Number: [id number] Authorization Status-Primary : Admit approved Authorization Number-Primary : [id number] Number of Days Authorized-Primary : 3 Day(s) Authorized Service Begin Date-Primary : 04/05/2019 EST Authorized Service End Date-Primary : 04/08/2019 EST Authorization Comments-Primary : Passport denial overturned per fax back--- approved for . Historical Authorization Comments-Primary : Comment 1: Received fax stating that appeal has been initiated. (FLORES LOVETT RN 04/23/2019 08:35) Comment 2: Sent to appeals (FLORES LOVETT RN 04/09/2019 08:59) Comment 3: Called MD office and informed them that admission has been administratively denied. Spoke with Callie Jamil and informed them the MD office and Hospital would have to file an appeal for this admission. (FLORES LOVETT RN 04/09/2019 08:36) Comment 4: Notification of denial emailed to Flores Lovett (Lucila Nash Rn-Utilization Review 04/06/2019 14:56) Comment 5: Per Loulou at Dr Nelson's office, precert was not obtained. (scheduled ) Laquita at [facility] will issue an administrative denial (Lucila Nash Rn-Utilization Review 04/06/2019 14:54) Comment 6: Delivery summary faxed to [facility] (Lucila Nash Rn-Utilization Review 04/05/2019 15:38) KING BECKETT RN-Utilization Review - 05/09/2019 11:22 EST documented in this encounter Plan of Treatment Not on file documented as of this encounter Visit Diagnoses Not on filedocumented in this encounter
--- OUTSIDE RECORDS SUMMARY | 2024-12-11 10:06 | XMS_ITS | Encounter Summary ---
Author Organization [employer] ([place], [place], [place], [place]) Address [address] [place] [address] Care Team Providers Care Doctor Of Nurse Anesthesia Practice Name Role Phone Unavailable Primary Care Provider Unavailabl e Encounter Details Date Type Department Care Team (Late st Contact Info) Description 04/08/2019 Transcribed Document [facility] [place] Family Medicine [address] [place] [address] ProviderTamie MD [address] [place] [address] Social History Tobacco Use Types Packs/Day Years Used Date Smoking Tobacco: Never Assessed Comments Unknown Sex and Gender Information Value Date Recorded Sex Assigned at Not on file Legal Sex Female 6:35 PM CDT Gender Identity Not on file Sexual Orientation Not on file documented as of this encounter Miscellaneous Notes * [employer] Conversion Note - Tamie ProviderMD - 04/08/2019 12:00 PM INTERNAL MEDICINE NURSE PRACTITIONER Pain Assessment Entered On: 04/08/2019 14:48 EST Performed On: 04/08/2019 14:15 EST by KING MODI RN Intervention Information: ibuprofen Performed by KING MODI RN on 04/08/2019 12:58:00 EST ibuprofen,600mg Oral Pain Assessment Pain Assessment : Follow-up assessment Pain Scale Used : 0-10 Scale KING MODI RN - 04/08/2019 14:48 EST Pain Scale Intensity : 0 KING MODI RN - 04/08/2019 14:48 EST Image 4 - Images currently included in the form version of this document have not been included in the text rendition version of the form. Electronically signed by Emily Potts Conversion Music Therapist [employer] at 07/08/2022 3:02 PM CDT documented in this encounter Plan of Treatment Not on file documented as of this encounter Visit Diagnoses Not on filedocumented in this encounter
--- OUTSIDE RECORDS SUMMARY | 2024-12-11 10:06 | XMS_ITS | Encounter Summary ---
Author Organization [employer] ([place], [place], [place], [place]) Address [address] [place] [address] Care Team Providers Care Logging Specialist Name Role Phone Unavailable Primary Care Provider Unavailabl e Encounter Details Date Type Department Care Team (Late st Contact Info) Description 08/21/2018 Transcribed Document [facility] [place] [facility] [place] [address] ProviderTamie MD [address] [place] [address] Social History Tobacco Use Types Packs/Day [...] ProviderMD - 08/21/2018 2:04 PM CDT ED Assessment Entered On: 08/21/2018 14:41 EDT Performed On: 08/21/2018 14:11 EDT by SUKH DELGADO RN ED Quick Look Assessment Level of Consciousness : Alert, Awake Affect/Behavior : Appropriate, Calm, Cooperative Orientation : Oriented x 4 SUKH DELGADO RN - 08/21/2018 14:38 EDT ED General-Functional Assess Communication Barrier : None Primary Language : Grenadian Any Spiritual/Cultural Needs or Requests : No Currently in Unsafe Situation : No SUKH DELGADO RN - 08/21/2018 14:38 EDT Social Habits Smoking Status : Never (less than 100 in lifetime; none in last 30 days) Smokeless Tobacco Status : Never Desires Tobacco Cessation Calc : 0 SUKH DELGADO RN - 08/21/2018 14:38 EDT Social History (As Of: 08/21/2018 14:41:05 EDT) Tobacco: Never (less than 100 in lifetime) Smoking Status. (Last Updated: 08/21/2018 14:39:34 EDT by SUKH DELGADO, RN) Gastrointestinal ED Gastrointestinal Symptoms : Nausea Gastrointestinal Assessment Comment : pt with n/v x one week, pt states she is approx 7 weeks . pale in color SUKH DELGADO RN - 08/21/2018 14:38 EDT Electronically signed by [facility], [facility] Conversion Dental Office Assistant [employer] at 07/08/2022 2:57 PM CDT documented in this encounter Plan of Treatment Not on file documented as of this encounter Visit Diagnoses Not on filedocumented in this encounter
--- OUTSIDE RECORDS SUMMARY | 2024-12-11 10:06 | XMS_ITS | Encounter Summary ---
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 Name Role Phone Unavailable Primary Care Provider Unavailabl e Encounter Details Date Type Department Care Team (Late st Contact Info) Description 04/07/2019 Transcribed Document [facility] [place] [facility] [place] [address] ProviderTamie MD [address] [place] [id number] Social History Tobacco Use Types Packs/Day Years Used Date Smoking Tobacco: Never Assessed Comments Unknown Sex and Gender Information Value Date Recorded Sex Assigned at Not on file Legal Sex Female 6:35 PM CDT Gender Identity Not on file Sexual Orientation Not on file documented as of this encounter Miscellaneous Notes * [employer] Conversion Note - Tamie ProviderMD - 04/07/2019 12:04 PM MANAGER INTEGRITY Patient: GALA BALTAZAR Age: 23 Years Sex: Female : 1995 Chief Complaint: POD2 rpt c/s with vac assist Subjective pain well controlled with percocet. did have large clot yesterday but none since. bleeding moderate now. going okay- supplementing with formula Review of Systems ros neg except where noted Objective Vitals & Measurements vs wnl, afebrile General: nad Breast: nontender, intact Cardiovascular: reg rate Lungs: unlabored Abdomen: fundus firm, nl lochia Ext: no edema or calf pain Incision/Episiotomy/Lac: steri strips-CDI, nontender Assessment/Plan routine pp care 39 weeks gestation of Z3A.39 Breast feeding status of mother Z39.1 delivery delivered O82 History of 2 sections Z98.891 Single live Z37.0 Vacuum-assisted delivery, delivered, current hospitalization O66.5 1. Encourage ambulation/incentive spirometry every 15 minutes 2. DVT Prophylaxis 3. Tobacco abuse assessment: Smoker Yes(_)/No(_), If yes, plan: 4. control discussion and choice: 5. Feeding choice: 6. Vaccinations: 7. Return appointment: 8. depression follow-up plan: 9. Two hour OGTT scheduled for 6 week visit: Yes(_)/No(_) Infant Data (_) NICU (_) Medications Inpatient Adacel (Tdap), 0.5 mL, IntraMuscular, 1-Time, PRN aluminum hydroxide/magnesium hydroxide/simethicone 200 mg-200 mg-20 mg/5 mL oral suspension, 30 mL, Oral, Q4H, PRN Ambien, 5 mg= 1 Tab, Oral, At Bedtime, PRN Benadryl, 25 mg= 1 Tab, Oral, Q6H, PRN Colace, 100 mg= 1 Cap, Oral, TID Dextrose 5% in Lactated Ringers intravenous solution 1,000 mL, 1000 mL, IntraVENous Dulcolax Laxative, 10 mg= 1 Supp, Rectal, BID, PRN Hemabate, 250 mcg= 1 mL, IntraMuscular, 1-Time, PRN hydrocortisone-pramoxine 1%-1% rectal cream, 1 Application, Rectal, Q4H, PRN ibuprofen, 600 mg= 1 Tab, Oral, Q6H ibuprofen, 400 mg= 1 Tab, Oral, Q6H, PRN lanolin topical ointment, 1 Application, Topical, See Comment, PRN measles/mumps/rubella virus vaccine, 0.5 mL, SubCutaneous, 1-Time, PRN Methergine, 0.2 mg= 1 mL, IntraMuscular, 1-Time, PRN Mylicon, 80 mg= 1 Tab, Chew, TID nalbuphine, 5 mg= 0.5 mL, IV Push, 1-Time, PRN naloxone, 0.2 mg= 0.5 mL, IV Push, See Comment, PRN Normal Saline Flush, 10 mL, IV Push, See Comment, PRN Pepcid, 20 mg= 1 Tab, Oral, Q12H, PRN Percocet 5/325 oral tablet, 1 Tab, Oral, Q4H, PRN Percocet 5/325 oral tablet, 2 Tab, Oral, Q4H, PRN Multivitamins oral tablet, 1 Tab, Oral, Daily Stadol, 1 mg= 1 mL, IV Push, Q2H, PRN Zofran, 4 mg= 2 mL, IV Push, Q4H, PRN Home Classic , Oral, Daily ferrous fumarate 324 mg (106 mg elemental iron) oral tablet, Oral, Daily ProAir HFA 90 mcg/inh inhalation aerosol, Inhalation, QID Problem List/Past Medical History Ongoing No chronic problems Historical No qualifying data Lab Results APR 06 04:48 \ L 9.0 / 9.1 L 147 / L 28.0 \ Electronically signed by Katlyn, [facility] Conversion Air Traffic Control Manager Cerner at 07/08/2022 2:58 PM CDT documented in this encounter Plan of Treatment Not on file documented as of this encounter Visit Diagnoses Not on filedocumented in this encounter
--- OUTSIDE RECORDS SUMMARY | 2024-12-11 10:06 | XMS_ITS | Encounter Summary ---
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 Name Role Phone Unavailable Primary Care Provider Unavailabl e Encounter Details Date Type Department Care Team (Late st Contact Info) Description 08/21/2018 Transcribed Document [facility] – [place] [facility] [place] [address] ProviderTamie MD [facility] [place] [address] Social History Tobacco Use Types Packs/Day Years Used Date Smoking Tobacco: Never Assessed Comments Unknown Sex and Gender Information Value Date Recorded Sex Assigned at Not on file Legal Sex Female 6:35 PM CDT Gender Identity Not on file Sexual Orientation Not on file documented as of this encounter Miscellaneous Notes * [employer] Conversion Note - Tamie ProviderMD - 08/21/2018 4:42 PM CDT ED Discharge Entered On: 08/21/2018 16:42 EDT Performed On: 08/21/2018 16:42 EDT by SUKH DELGADO shingle shearing machine operator Process Patient Disposition : Discharge Personal Belongings With Patient : Yes Patient Education Completed : Yes Teaching Evaluation : Verbalizes understanding Education Comment : pt dced home at [address] in stable [facility]. IV Discontinued : Yes Nursing Documentation Completed : Yes SUKH DELGADO RN - 08/21/2018 16:42 EDT ED Discharge Discharge To : Home with ambulatory/outpatient follow-up Mode Of Departure : Ambulatory Accompanied By : Unaccompanied Discharge Instructions Reviewed With, Opportunity For Questions Given : Patient Prescriptions Given to Patient : Yes Number of Prescriptions Given : 1 SUKH DELGADO RN - 08/21/2018 16:42 EDT Electronically signed by Katlyn [facility] Conversion Grain Mill Worker [employer] at 07/08/2022 2:48 PM CDT documented in this encounter Plan of Treatment Not on file documented as of this encounter Visit Diagnoses Not on filedocumented in this encounter
--- OUTSIDE RECORDS SUMMARY | 2024-12-11 10:06 | XMS_ITS | Encounter Summary ---
Author Organization [employer] [employer] ([place], [place], [place], [place]) Address [address] [place] [address] Care Team Providers Care Manager Strategic Alliances Name Role Phone Unavailable Primary Care Provider Unavailabl e Encounter Details Date Type Department Care Team (Late st Contact Info) Description 08/21/2018 Transcribed Document [facility] [place] [facility] [place] [address] ProviderTamie MD [address] [place] [id number] Social History Tobacco Use Types Packs/Day Years Used Date Smoking Tobacco: Never Assessed Comments Unknown Sex and Gender Information Value Date Recorded Sex Assigned at Not on file Legal Sex Female 6:35 PM CDT Gender Identity Not on file Sexual Orientation Not on file documented as of this encounter Miscellaneous Notes * Cerner Conversion Note - Tamie Vanegas MD - 08/21/2018 4:00 PM CDT [place] [id number] GALA BALTAZAR :1995 Visit Time:08/21/2018 Your Visit Summary Your Care Team Admitting Physician - MARISOL BRAGA MD-JASWANT Attending Physician - MARISOL BRAGA MD-JASWANT Primary Care Physician - ABNER, UNKNOWN Referring Physician - SELF, REFERRED (REF), -UNK Your Diagnosis Excessive vomiting during Nausea Patient Portal Reminder: Be sure to sign up for the [employer] patient portal, which gives you 11/10 access to your medical information ??? including these discharge instructions ??? using your computer, smartphone, or tablet. Just go to [employer] to get started. Questions? Call . You may also obtain a copy of your Emergency Department visit from Medical Records by calling the hospital phone number listed above and asking to be directed to the Medical Records Department. If you had special tests, such as EKG???s or X-rays, the interpretation of your tests given to you by the Emergency Department Physician is a preliminary report. Some fractures and illnesses fail to show up on preliminary tests. These will be reviewed again and we will call you if there are any new suggestions. If your symptoms continue notify your physician. After you leave, you should follow the instructions provided. What to do next Follow-Up Appointments Follow Up with Return to Emergency Department When Within As needed Follow Up with Your OBGYN When Within 2 to 3 days Comments Call for follow up appointment Allergies Latex penicillin Immunizations This Visit No Immunizations Found Medications The home medications listed are only as accurate as the information you provided. Please continue taking all of your medications prescribed by your Primary Care Provider unless specifically told to change or discontinue the medication. Please direct any questions regarding your home medications to your Primary Care Provider. Take your medications faithfully. Do NOT skip medication. Do NOT stop taking medications without the direction of a physician. Carry a list of your medications with you at all times, and take this medication list with you to your first follow up visit. Report any side effects. Avoid herbal remedies unless discussed with your physician. As part of your treatment plan, your physician may have prescribed a limited course of a controlled substance. This medication may be given to help people with moderate or severe pain or for other medical conditions, but there are risks involved with treatment. Common side effects may include nausea, constipation, drowsiness, sweating, itching, dry mouth, and rash. More serious side effects may include cognitive and motor impairment, like problems with thinking, concentrating, alertness, and movement (e.g. slowed reflexes), and driving and operating heavy machinery can be dangerous. It is important for you to talk to your physician if you have these side effects or questions. These controlled substances can produce physical dependence and be habit-forming if taken for an extended period of time, which means that the body has gotten used to them and may experience withdrawal symptoms if they are abruptly stopped. Withdrawal symptoms can include runny nose, sweating, goose bumps, diarrhea, abdominal cramping, rapid heartbeat, difficulty sleeping, and nervousness. Please dispose of unused and medications per pharmacy guidance. Test Results Laboratory or Other Results This Visit (last charted value for your 08/21/2018 visit) Hematology 08/21/18 14:31:00 WBC: 6.5 K/uL -- Normal range between ( 3.9 and 10.0 ) RBC: 4.57 Million/uL -- Normal range between ( 3.93 and 5.22 ) Hct: 36.3 % -- Normal range between ( 34.1 and 44.9 ) Hgb: 11.9 Gram/dL -- Normal range between ( 11.2 and 15.7 ) Platelet Count: 252 K/uL -- Normal range between ( 163 and 369 ) MCH: 26.0 pg -- Normal range between ( 25.6 and 32.2 ) MCHC: 32.8 Gram/dL -- Normal range between ( 32.3 and 36.5 ) MCV: 79.4 fL -- Normal range between ( 79.0 and 94.8 ) Slide Review: No Eos %: 0.8 % -- Normal range between ( 1.0 and 7.0 ) [place] #: 0.61 K/uL -- Normal range between ( 0.24 and 0.82 ) Eos #: 0.05 K/uL -- Normal range between ( 0.04 and 0.54 ) [place] %: 9.4 % -- Normal range between ( 4.7 and 12.5 ) Baso %: 0.3 % -- Normal range between ( 0.0 and 1.0 ) Baso #: 0.02 K/uL -- Normal range between ( 0.01 and 0.08 ) RDW: 14.0 % -- Normal range between ( 11.6 and 14.4 ) Neut %: 61.8 % -- Normal range between ( 34.0 and 71.0 ) Neut #: 4.02 K/uL -- Normal range between ( 1.56 and 6.13 ) Lymph %: 27.5 % -- Normal range between ( 19.3 and 53.0 ) Lymph #: 1.79 K/uL -- Normal range between ( 1.18 and 3.74 ) MPV: 9.9 fL -- Normal range between ( 9.4 and 12.4 ) IG#: 0 x10(3)/uL IG%: 0 % -- Normal range between ( 0 and 1 ) Urinalysis 08/21/18 14:31:00 Ur RBC: 2-5 /HPF Urine Nitrite: Negative Urine Leukocyte Esterase: Negative Ur Epithelial Cells: 5-10 /HPF Urine Appearance: Clear Urine Glucose Dipstick: Negative Urine Blood Dipstick: Negative Urine Type: U CleanCatch Urine Urobilinogen Dipstick: 1.0 EU/dL -- Normal range between ( 0.2 and 1.0 ) Urine Protein Dipstick: Negative Ur Amorph: Trace Ur Bacteria: Trace Urine Color: Yellow Ur WBC: 0-2 /HPF Urine Ketones Dipstick: 40 Urine pH Dipstick: 7.5 -- Normal range between ( 6.0 and 8.0 ) Urine Bilirubin Dipstick: Negative Urine Specific [place]: 1.023 -- Normal range between ( 1.005 and 1.030 ) General Chemistry 08/21/18 14:31:00 Creatinine Level: 0.52 mg/dL -- Normal range between ( 0.55 and 1.02 ) Sodium Level: 136 mmol/L -- Normal range between ( 136 and 146 ) Potassium Level: 3.6 mmol/L -- Normal range between ( 3.5 and 5.1 ) Chloride Level: 108 mmol/L -- Normal range between ( 102 and 112 ) Carbon Dioxide Level: 23 mmol/L -- Normal range between ( 21 and 32 ) Anion Gap: 9 -- Normal range between ( 9 and 20 ) Bilirubin Total: 0.4 mg/dL -- Normal range between ( 0.2 and 1.3 ) A/G Ratio: 1.1 -- Normal range between ( 1.1 and 2.5 ) ALT: 28 Units/Liter -- Normal range between ( 12 and 78 ) AST: 16 Units/Liter -- Normal range between ( 5 and 37 ) Globulin: 3.5 Gram/dL -- Normal range between ( 1.5 and 4.5 ) Alk Phos: 55 Units/Liter -- Normal range between ( 27 and 136 ) Bun/Creatinine: 9.6 -- Normal range between ( 8.0 and 20.0 ) Calcium Level: 8.6 mg/dL -- Normal range between ( 8.5 and 10.1 ) eGFR : >60 mL/min/1.73m2 eGFR NonAfrican: >60 mL/min/1.73m2 Glucose Level: 75 mg/dL -- Normal range between ( 74 and 106 ) Blood Urea Nitrogen: 5 mg/dL -- Normal range between ( 7 and 22 ) Protein Total: 7.3 Gram/dL -- Normal range between ( 6.4 and 8.2 ) Albumin Level: 3.8 Gram/dL -- Normal range between ( 3.4 and 5.0 ) [facility] 08/21/18 14:31:00 HCG Urine Qualitative: [employer] Morning Sickness Morning sickness is when you feel sick to your stomach (nauseous) during . You may feel sick to your stomach and throw up (vomit). You may feel sick in the morning, but you can feel this way at any time of day. Some women feel very sick to their stomach and cannot stop throwing up (hyperemesis gravidarum). Follow these instructions at home: Medicines ??? Take ixcp-vjh-jtdmhim and prescription medicines only as told by your doctor. Do not take any medicines until you talk with your doctor about them first. ??? Taking multivitamins before getting can stop or lessen the harshness of morning sickness. Eating and drinking ??? Eat dry toast or crackers before getting out of bed. ??? Eat 5 or 6 small meals a day. ??? Eat dry and bland foods like rice and baked potatoes. ??? Do not eat greasy, fatty, or spicy foods. ??? Have someone cook for you if the smell of food causes you to feel sick or throw up. ??? If you feel sick to your stomach after taking vitamins, take them at night or with a snack. ??? Eat protein when you need a snack. Nuts, yogurt, and cheese are good choices. ??? Drink fluids throughout the day. ??? Try bean martínez made with real bean, bean tea made from fresh grated bean, or bean candies. General instructions ??? Do not use any products that have nicotine or tobacco in them, such as cigarettes and e-cigarettes. If you need help quitting, ask your doctor. ??? Use an air purifier to keep the air in your house free of smells. ??? Get lots of fresh air. ??? Try to avoid smells that make you feel sick. ??? Try: ? Wearing a bracelet that is used for seasickness (acupressure wristband). ? Going to a doctor who puts thin needles into certain body points (acupuncture) to improve how you feel. Contact a doctor if: ??? You need medicine to feel better. ??? You feel dizzy or light-headed. ??? You are losing weight. Get help right away if: ??? You feel very sick to your stomach and cannot stop throwing up. ??? You pass out (faint). ??? You have very bad pain in your belly. Summary ??? Morning sickness is when you feel sick to your stomach (nauseous) during . ??? You may feel sick in the morning, but you can feel this way at any time of day. ??? Making some changes to what you eat may help your symptoms go away. This information is not intended to replace advice given to you by your health care provider. Make sure you discuss any questions you have with your health care provider. Document Released: 04/14/2005 Document Revised: 04/07/2017 Document Reviewed: 04/07/2017 [employer] Patient Education ?? 2019 [employer] Morning Sickness Morning sickness is when a woman feels nauseous during . This nauseous feeling may or may not come with vomiting. It often occurs in the morning, but it can be a problem at any time of day. Morning sickness is most common during the first trimester. In some cases, it may continue throughout . Although morning sickness is unpleasant, it is usually harmless unless the woman develops severe and continual vomiting (hyperemesis gravidarum), a condition that requires more intense treatment. What are the causes? The exact cause of this condition is not known, but it seems to be related to normal hormonal changes that occur in . What increases the risk? You are more likely to develop this condition if: ??? You experienced nausea or vomiting before your . ??? You had morning sickness during a previous . ??? You are with more than one baby, such as twins. What are the signs or symptoms? Symptoms of this condition include: ??? Nausea. ??? Vomiting. How is this diagnosed? This condition is usually diagnosed based on your signs and symptoms. How is this treated? In many cases, treatment is not needed for this condition. Making some changes to what you eat may help to control symptoms. Your health care provider may also prescribe or recommend: ??? Vitamin B6 supplements. ??? Anti-nausea medicines. ??? Bean. Follow these instructions at home: Medicines ??? Take bgnv-eqd-rffftcv and prescription medicines only as told by your health care provider. Do not use any prescription, vtzw-nfq-ipdcbam, or herbal medicines for morning sickness without first talking with your health care provider. ??? Taking multivitamins before getting can prevent or decrease the severity of morning sickness in most women. Eating and drinking ??? Eat a piece of dry toast or crackers before getting out of bed in the morning. ??? Eat 5 or 6 small meals a day. ??? Eat dry and bland foods, such as rice or a baked potato. Foods that are high in carbohydrates are often helpful. ??? Avoid greasy, fatty, and spicy foods. ??? Have someone cook for you if the smell of any food causes nausea and vomiting. ??? If you feel nauseous after taking vitamins, take the vitamins at night or with a snack. ??? Snack on protein foods between meals if you are hungry. Nuts, yogurt, and cheese are good options. ??? Drink fluids throughout the day. ??? Try bean martínez made with real bean, bean tea made from fresh grated bean, or bean candies. General instructions ??? Do not use any products that contain nicotine or tobacco, such as cigarettes and e-cigarettes. If you need help quitting, ask your health care provider. ??? Get an air purifier to keep the air in your house free of odors. ??? Get plenty of fresh air. ??? Try to avoid odors that trigger your nausea. ??? Consider trying these methods to help relieve symptoms: ? Wearing an acupressure wristband. These wristbands are often worn for seasickness. ? Acupuncture. Contact a health care provider if: ??? Your home remedies are not working and you need medicine. ??? You feel dizzy or light-headed. ??? You are losing weight. Get help right away if: ??? You have persistent and uncontrolled nausea and vomiting. ??? You faint. ??? You have severe pain in your abdomen. Summary ??? Morning sickness is when a woman feels nauseous during . This nauseous feeling may or may not come with vomiting. ??? Morning sickness is most common during the first trimester. ??? It often occurs in the morning, but it can be a problem at any time of day. ??? In many cases, treatment is not needed for this condition. Making some changes to what you eat may help to control symptoms. This information is not intended to replace advice given to you by your health care provider. Make sure you discuss any questions you have with your health care provider. Document Released: 04/28/2007 Document Revised: 04/09/2017 Document Reviewed: 04/09/2017 [employer] Patient Education ?? 2019 [employer] Emergency Awareness and Preventative Care STROKE is an EMERGENCY Every Minute Counts Act FAST and Check for these signs: FACE Does the face look uneven? ARM Does one arm drift down? SPEECH Does their speech sound strange? TIME Call at any sign of stroke Stroke Risk Factors Atrial Fibrillation (irregular heartbeat) Diabetes Family history of stroke Heart Disease Heavy alcohol use High Blood Pressure High Cholesterol Physical inactivity and obesity Smoking Cigarette Smoking The facts are clear, cigarette smoking will shorten your life. Smoking can cause many illnesses along the way. As a healthcare provider, we recommend that you stop smoking. Assistance with quitting is available by contacting 8-392-LOTN-NOW. This is a free resource providing counseling, support, and referral. Or you may contact your personal physician. National Suicide Prevention Lifeline: The National Suicide Prevention Lifeline is a national network of local crisis centers that provides free and confidential emotional support to people in suicidal crisis or emotional distress 24 hours a day, 7 days a week. Don't Wait! Stop a Heart Attack Before it Starts What is a heart attack? A heart attack is damage or to a part of the heart from severely decreased or lack of blood flow to the heart. Over time, arteries can become narrow from the buildup of fat and cholesterol, which is called plaque. The plaque can rupture causing a blood clot to form. When the blood clot forms, the artery can become severely narrowed or completely blocked, causing a heart attack. Heart attack is the leading cause of in the [place]. 85% of muscle damage occurs within the first 2 hours. Delay in the recognition of heart attack symptoms increases the chances of . Know the early symptoms of a heart attack: Nausea Feeling of fullness in chest Jaw Pain Pain that travels down one or both arms Fatigue/being tired Anxiety Back Pain Chest pressure, squeezing, or discomfort Shortness of breath Sweating, or a cold sweat Feeling of impending doom There are unusual signs of a heart attack, too! Women, the elderly, and diabetics may present with atypical symptoms: Fainting/dizziness Weakness Confusion Risk Factors for a Heart Attack Some heart disease risk factors, such as age and family history, cannot be changed. Others, like smoking and lack of exercise, can be changed. Smoking High Cholesterol High Blood Pressure Family History Obesity Age Gender (Males are at higher risk) Lack of Exercise Diabetes Diet Stress Excessive Alcohol Intake If you or someone you know is experiencing the signs and symptoms of a heart attack, DON???T DELAY. Call immediately and seek help. If someone collapses, perform CPR! Do not attempt to drive if you are having symptoms of heart attack. Hands-Only CPR Why Hands-Only CPR? Hands-Only CPR has been shown to be as effective as conventional CPR for cardiac arrests that occur outside of a hospital. Survival depends on immediately receiving CPR from someone nearby. How do you perform Hands-Only CPR? There are two easy steps: Call if you see a teen or adult collapse Push hard and fast in the center of the chest at a beat of 100 beats per minute. Save a life! 4 WAYS TO GET AHEAD OF SEPSIS SEPSIS is a MEDICAL EMERGENCY. Time matters! Infections put you and your family at risk for a life-threatening condition called sepsis. Sepsis is the body's extreme response to an infection. It is life-threatening, and without timely treatment, sepsis can rapidly lead to tissue damage, organ failure, and . Sepsis happens when an infection you already have-in your skin, lungs, urinary tract or somewhere else-triggers a chain reaction throughout your body. 1 PREVENT INFECTIONS Take good care of chronic conditions. Talk to your doctor about getting the recommended vaccines. 2 PRACTICE GOOD HYGIENE Wash your hands frequently. Keep cuts or open sores clean and covered until they are healed. 3 KNOW THE SYMPTOMS Confusion or disorientation Shortness of breath High heart rate Fever, shivering, or feeling very cold Extreme pain or discomfort Clammy or sweaty skin 4 ACT FAST Get medical care IMMEDIATELY if you suspect sepsis or if you have an infection that is not getting better or is getting worse. To learn more about sepsis and how to prevent infections, visit www.cdc.gov/sepsis. The examination and treatment you have received in the Emergency Department has been done to provide an appropriate evaluation and stabilizing treatment on an emergency basis only. Given the limited resources, it is not meant to be a substitute for complete medical care. The follow-up doctor you named will receive a copy of your records and all test reports. IT IS IMPORTANT THAT YOU SCHEDULE A FOLLOW-UP APPOINTMENT AND ARE RE-EVALUATED. You should report any new complaints, symptoms, or remaining problems at that time. IT IS IMPOSSIBLE FOR THE EMERGENCY DEPARTMENT TO RECOGNIZE AND TREAT ALL ELEMENTS OF INJURY OR ILLNESS IN A SINGLE VISIT. If you have been referred to a specialist physician, it means that we believe you may have a condition that requires the expertise of a specialist. These physicians work in partnership with the hospital and have agreed to see referred patients in their office for further evaluation. KEEP IN MIND THAT THE SPECIALIST HAS HIS/HER OWN OFFICE POLICIES WHICH MAY REQUIRE PROPER INSURANCE OR PAYMENT UP FRONT BEFORE THE SPECIALIST WILL SEE YOU. It is your responsibility to call the specialist physician to make an appointment. We do not have the ability to refer patients to specialists/physicians that work with specific insurance companies. Please be advised that all financial charges or billing practices are determined by that practice, not the hospital. If your insurance company requires that you see a specialist from their approved list, it is your responsibility to contact your insurance company to make those arrangements. It is also your responsibility to follow any other requirements of your insurance company necessary to obtain coverage for claims submitted. We will bill your insurance; however, you are responsible today for any co-pay amounts. You will receive a separate bill for any services you may have received including: emergency, radiology, or pathology physicians. Patient Name:GALA BALTAZAR I have received this information and was given the opportunity to ask questions. Patient/Rug Designer Name: Patient/Rug Designer Signature: Relationship to Patient: Clinician/Hospital Rug Designer Signature: Please Provide a Telephone Number Where You Can Be Reached: Is it Permissible To Leave a Message? Date: Electronically signed by Katlyn, [facility] Conversion Pilar Espinosa at 07/08/2022 2:52 PM CDT documented in this encounter Plan of Treatment Not on file documented as of this encounter Visit Diagnoses Not on filedocumented in this encounter
--- OUTSIDE RECORDS SUMMARY | 2024-12-11 10:06 | XMS_ITS | Encounter Summary ---
Author Organization [employer] ([place], [place], [place], [place]) Address [address] [place] [address] Care Team Providers Care Autism Teacher Name Role Phone Unavailable Primary Care Provider Unavailabl e Encounter Details Date Type Department Care Team (Late st Contact Info) Description 04/06/2019 Transcribed Document [facility] [place] Family Medicine [address] [place] [address] ProviderTamie MD [facility] [place] [address] Social History Tobacco Use Types Packs/Day Years Used Date Smoking Tobacco: Never Assessed Comments Unknown Sex and Gender Information Value Date Recorded Sex Assigned at Not on file Legal Sex Female 6:35 PM CDT Gender Identity Not on file Sexual Orientation Not on file documented as of this encounter Miscellaneous Notes * [employer]ner Conversion Note - Tamie ProviderMD - 04/06/2019 6:00 PM PEDIATRIC CLINICAL DIETICIAN Pain Assessment Entered On: 04/06/2019 17:50 EST Performed On: 04/06/2019 18:05 EST by JACKIE HILL RN Intervention Information: ibuprofen Performed by JACKIE HILL RN on 04/06/2019 17:05:00 EST ibuprofen,600mg Oral Pain Assessment Pain Assessment : Follow-up assessment Pain Intervention, Drug : Medicated Pain Improved by Intervention : Yes JACKIE HILL RN - 04/06/2019 17:50 EST Electronically signed by Katlyn [facility] Conversion [employer] at 07/08/2022 2:44 PM CDT documented in this encounter Plan of Treatment Not on file documented as of this encounter Visit Diagnoses Not on filedocumented in this encounter
--- OUTSIDE RECORDS SUMMARY | 2024-12-11 10:06 | XMS_ITS | Encounter Summary ---
Author Organization [employer] ([place], [place], [place], [place]) Address [address] [place] [address] Care Team Providers Care Deli Worker Name Role Phone Unavailable Primary Care Provider Unavailabl e Encounter Details Date Type Department Care Team (Late st Contact Info) Description 04/09/2019 Transcribed Document [facility] [place] Family Medicine [address] [place] [address] ProviderTamie MD [address] [place] [address] Social History Tobacco Use Types Packs/Day Years Used Date Smoking Tobacco: Never Assessed Comments Unknown Sex and Gender Information Value Date Recorded Sex Assigned at Not on file Legal Sex Female 6:35 PM CDT Gender Identity Not on file Sexual Orientation Not on file documented as of this encounter Miscellaneous Notes * Cerner Conversion Note - Tamie ProviderMD - 04/09/2019 8:59 AM BARREL RIFLER UM Authorization Entered On: 04/09/2019 8:59 EST Performed On: 04/09/2019 8:59 EST by FLORES LOVETT RN Primary Insurance Authorization Authorization and Policy Numbers : Insurance 1 Health Plan: [employer] Policy Number: [id number] Authorization Number: Insurance Primary Name : [employer] Policy Number: [id number] Authorization Status-Primary : Denied Authorized Service Begin Date-Primary : 04/05/2019 EST Authorization Comments-Primary : Sent to appeals Historical Authorization Comments-Primary : Comment 1: Called MD office and informed them that admission has been administratively denied. Spoke with Callie Jamil and informed them the MD office and Hospital would have to file an appeal for this admission. (FLORES LOVETT RN 04/09/2019 08:36) Comment 2: Notification of denial emailed to Flores Lovett (Lucila Nash Rn-Utilization Review 04/06/2019 14:56) Comment 3: Keagan Jamil at Dr Nelson's office, precert was not obtained. (scheduled ) Laquita at [facility] will issue an administrative denial (Lucila Nash, Sherri-Utilization Review 04/06/2019 14:54) Comment 4: Delivery summary faxed to [facility] (Lucila Nash, Sherri-Utilization Review 04/05/2019 15:38) FLORES LOVETT RN - 04/09/2019 8:59 EST documented in this encounter Plan of Treatment Not on file documented as of this encounter Visit Diagnoses Not on filedocumented in this encounter
--- OUTSIDE RECORDS SUMMARY | 2024-12-11 10:06 | XMS_ITS | Encounter Summary ---
Author Organization [employer] ([place], [place], [place], [place]) Address [address] [place] [address] Care Team Providers Care Director Sports Name Role Phone Unavailable Primary Care Provider Unavailabl e Encounter Details Date Type Department Care Team (Late st Contact Info) Description 04/06/2019 Transcribed Document [facility] [place] [place] Family Medicine [address] [place] [address] ProviderTamie MD [facility] [place], [place] [address] Social History Tobacco Use Types Packs/Day Years Used Date Smoking Tobacco: Never Assessed Comments Unknown Sex and Gender Information Value Date Recorded Sex Assigned at Not on file Legal Sex Female 6:35 PM CDT Gender Identity Not on file Sexual Orientation Not on file documented as of this encounter Miscellaneous Notes * Cerner Conversion Note - Tamie ProviderMD - 04/06/2019 12:00 AM DIRECT CARE SPECIALIST Pain Assessment Entered On: 04/06/2019 4:12 EST Performed On: 04/06/2019 0:16 EST by FANG CLAROS, RN Intervention Information: ibuprofen Performed by FANG CLAROS, RN on 04/05/2019 23:16:00 EST ibuprofen,600mg Oral Pain Assessment Pain Assessment : Initial assessment Pain Improved by Intervention : Yes FANG CLAROS RN - 04/06/2019 4:11 EST documented in this encounter Plan of Treatment Not on file documented as of this encounter Visit Diagnoses Not on filedocumented in this encounter
--- OUTSIDE RECORDS SUMMARY | 2024-12-11 10:06 | XMS_ITS | Patient Health Record ---
Author Organization [facility] Address [address] [place] [address] Care Team Providers Care Ballistician Name Role Phone Trinity Davila Unavailable [phone] Allergies Allergen (clinical drug ingredient) Drug/Non Drug Allergy documented on EMR Reaction Allergy Type Onset Date Status PENICILLIN V POTASSIUM (PENICILLIN V POTASSIUM TAB Unspecified Drug Allergy 02/14/2017 Active LATEX EXAM GLOVES (DISPOSABLE GLOVES) Unspecified Drug Allergy 02/14/2017 Active Reason For Referral No Information Problems Problem Type SNOMED Code ICD Code Onset Dates Problem Status W/U Status Risk Notes Problem Noninflammatory disorder of the vagina (69989988) Bloody vaginal discharge (N89.8) 018 Active confirmed Vaginal irritation Problem Noninflammatory disorder of vulva (44515209) 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
--- OUTSIDE RECORDS SUMMARY | 2024-12-11 10:06 | XMS_ITS | Encounter Summary ---
Author Organization [employer] ([place], [place], [place], [place]) Address [address] [place] [address] Care Team Providers Care Chief Librarian Extension Department Name Role Phone Unavailable Primary Care Provider Unavailabl e Encounter Details Date Type Department Care Team (Late st Contact Info) Description 04/06/2019 Transcribed Document [facility] [place] Family Medicine [address] [place] [address] ProviderTamie MD [address] [place], [place] [address] Social History Tobacco Use Types Packs/Day Years Used Date Smoking Tobacco: Never Assessed Comments Unknown Sex and Gender Information Value Date Recorded Sex Assigned at Not on file Legal Sex Female 6:35 PM CDT Gender Identity Not on file Sexual Orientation Not on file documented as of this encounter Miscellaneous Notes * Cerner Conversion Note - Historical ProviderMD - 04/06/2019 2:53 PM MEDICAL SCIENTIST UM Authorization Entered On: 04/06/2019 14:53 EST Performed On: 04/06/2019 14:53 EST by Lucila Nash Rn-Utilization Review Primary Insurance Authorization Authorization and Policy Numbers : Insurance 1 Health Plan: [employer] Policy Number: [id number] Authorization Number: Insurance Primary Name : [employer] Policy Number: [id number] Authorization Status-Primary : Notification only Authorized Service Begin Date-Primary : 04/05/2019 EST Historical Authorization Comments-Primary : Comment 1: [facility] (Lucila Nash Rn-Utilization Review 04/05/2019 15:38) uLcila Nash Rn-Utilization Review - 04/06/2019 14:53 EST documented in this encounter Plan of Treatment Not on file documented as of this encounter Visit Diagnoses Not on filedocumented in this encounter
--- OUTSIDE RECORDS SUMMARY | 2024-12-11 10:06 | XMS_ITS | Encounter Summary ---
Author Organization [employer] ([place], [place], [place]) Address [address] [place] [address] Care Team Providers Care Rice Milling Supervisor Name Role Phone Unavailable Primary Care Provider Unavailabl e Encounter Details Date Type Department Care Team (Late st Contact Info) Description 08/21/2018 Transcribed Document [facility] [place] Family Medicine [facility] [place] [address] ProviderTamie MD [facility] [place] [address] Social History Tobacco Use Types Packs/Day Years Used Date Smoking Tobacco: Never Assessed Comments Unknown Sex and Gender Information Value Date Recorded Sex Assigned at Not on file Legal Sex Female 6:35 PM CDT Gender Identity Not on file Sexual Orientation Not on file documented as of this encounter Miscellaneous Notes * Cerner Conversion Note - Historical ProviderMD - 08/21/2018 3:16 PM CDT documented in this encounter Plan of Treatment Not on file documented as of this encounter Visit Diagnoses Not on filedocumented in this encounter
--- OUTSIDE RECORDS SUMMARY | 2024-12-11 10:06 | XMS_ITS | Encounter Summary ---
Author Organization [employer] ([place], [place], [place], [place]) Address [address] [place] [address] Care Team Providers Care Revenue Investigator Name Role Phone Unavailable Primary Care Provider Unavailabl e Encounter Details Date Type Department Care Team (Late st Contact Info) Description 04/13/2019 Transcribed Document [facility] [place] [address] [place] [address] ProviderTamie MD [address] [place] [address] Social History Tobacco Use Types Packs/Day Years Used Date Smoking Tobacco: Never Assessed Comments Unknown Sex and Gender Information Value Date Recorded Sex Assigned at Not on file Legal Sex Female 6:35 PM CDT Gender Identity Not on file Sexual Orientation Not on file documented as of this encounter Miscellaneous Notes * Cerner Conversion Note - Historical ProviderMD - 04/13/2019 11:50 AM DIRECT CHILL CASTING OPERATOR UM Authorization Entered On: 04/13/2019 11:51 EST Performed On: 04/13/2019 11:50 EST by Lucila Nash Rn-Utilization Review Primary Insurance Authorization Authorization and Policy Numbers : Insurance 1 Health Plan: [employer] Policy Number: [id number] Authorization Number: DENIED- SENT TO APPEALS Insurance Primary Name : [employer] Policy Number: [id number] Authorization Status-Primary : Denied Authorized Service Begin Date-Primary : 04/05/2019 EST Historical Authorization Comments-Primary : Comment 1: Sent to appeals (FLORES LOVETT RN 04/09/2019 08:59) Comment 2: Called MD office and informed them that admission has been administratively denied. Spoke with Callie Jamil and informed them the MD office and Hospital would have to file an appeal for this admission. (FLORES LOVETT RN 04/09/2019 08:36) Comment 3: Notification of denial emailed to Flores Lovett (Nash, Lucila, Rn-Utilization Review 04/06/2019 14:56) Comment 4: Per Loulou at Dr Nelson's office, precert was not obtained. (scheduled ) Laquita at [facility] will issue an administrative denial (Lucila Nash, Rn-Utilization Review 04/06/2019 14:54) Comment 5: Delivery summary faxed to [facility] (Lucila Nash Rn-Utilization Review 04/05/2019 15:38) Lucila Nash Rn-Utilization Review - 04/13/2019 11:50 EST documented in this encounter Plan of Treatment Not on file documented as of this encounter Visit Diagnoses Not on filedocumented in this encounter
--- OUTSIDE RECORDS SUMMARY | 2024-12-11 10:06 | XMS_ITS | Encounter Summary ---
Author Organization [employer] ([place], [place], [place], [place]) Address [address] [place] [address] Care Team Providers Care Bag Sealer Name Role Phone Unavailable Primary Care Provider Unavailabl e Encounter Details Date Type Department Care Team (Late st Contact Info) Description 04/06/2019 Transcribed Document [facility] [place] [address] [place] [address] ProviderTamie MD [facility] [place] [address] Social History Tobacco Use Types Packs/Day Years Used Date Smoking Tobacco: Never Assessed Comments Unknown Sex and Gender Information Value Date Recorded Sex Assigned at Not on file Legal Sex Female 6:35 PM CDT Gender Identity Not on file Sexual Orientation Not on file documented as of this encounter Miscellaneous Notes * Cerner Conversion Note - Tamie ProviderMD - 04/06/2019 6:00 AM TREASURY ASSOCIATE Pain Assessment Entered On: 04/06/2019 6:25 EST Performed On: 04/06/2019 6:48 EST by FANG CLAROS, RN Intervention Information: ibuprofen Performed by FANG CLAROS, RN on 04/06/2019 05:48:00 EST ibuprofen,600mg Oral Pain Assessment Pain Assessment : Follow-up assessment Pain Improved by Intervention : Yes FANG CLAROS RN - 04/06/2019 6:24 EST documented in this encounter Plan of Treatment Not on file documented as of this encounter Visit Diagnoses Not on filedocumented in this encounter
--- OUTSIDE RECORDS SUMMARY | 2024-12-11 10:06 | XMS_ITS | Encounter Summary ---
Author Organization [employer] ([place], [place], [place], [place]) Address [address] [place] [address] Care Team Providers Care Photographer Scientific Name Role Phone Unavailable Primary Care Provider Unavailabl e Encounter Details Date Type Department Care Team (Late st Contact Info) Description 04/06/2019 Transcribed Document [facility] [place] Family Medicine [address] [place] [address] ProviderTamie MD [address] [place] [address] Social History Tobacco Use Types Packs/Day Years Used Date Smoking Tobacco: Never Assessed Comments Unknown Sex and Gender Information Value Date Recorded Sex Assigned at Not on file Legal Sex Female 6:35 PM CDT Gender Identity Not on file Sexual Orientation Not on file documented as of this encounter Miscellaneous Notes * Cerner Conversion Note - Tamie ProviderMD - 04/06/2019 12:00 PM AIRPORT OPERATIONS COORDINATOR Pain Assessment Entered On: 04/06/2019 17:50 EST Performed On: 04/06/2019 12:19 EST by JACKIE HILL RN Intervention Information: ibuprofen Performed by JACKIE HILL RN on 04/06/2019 11:19:00 EST ibuprofen,600mg Oral Pain Assessment Pain Assessment : Follow-up assessment Pain Intervention, Drug : Medicated Pain Improved by Intervention : Yes JACKIE HILL RN - 04/06/2019 17:49 EST Electronically signed by Katlyn [facility] Conversion Trench Trimmer Fine Cerner at 07/08/2022 2:55 PM CDT documented in this encounter Plan of Treatment Not on file documented as of this encounter Visit Diagnoses Not on filedocumented in this encounter
--- OUTSIDE RECORDS SUMMARY | 2024-12-11 10:06 | XMS_ITS | Encounter Summary ---
Author Organization [employer] ([place], [place], [place], [place]) Address [address] [place] [address] Care Team Providers Care Livestock Ranch Hand Name Role Phone Unavailable Primary Care Provider Unavailabl e Encounter Details Date Type Department Care Team (Late st Contact Info) Description 04/07/2019 Transcribed Document [facility] [place] [address] ProviderTamie MD [address] [place] [address] Social History Tobacco Use Types Packs/Day Years Used Date Smoking Tobacco: Never Assessed Comments Unknown Sex and Gender Information Value Date Recorded Sex Assigned at Not on file Legal Sex Female 6:35 PM CDT Gender Identity Not on file Sexual Orientation Not on file documented as of this encounter Miscellaneous Notes * Cerner Conversion Note - Tamie ProviderMD - 04/07/2019 4:39 PM CARPENTER REPAIR Patient: GAAL BALTAZAR Age: 23 Years Sex: Female : 1995 Admit Date 04/05/2019 09:55 PREOPERATIVE DIAGNOSIS(ES): 23 yo at 39 1/7 with prior section x 2 for repeat. POSTOPERATIVE DIAGNOSIS(ES): Same PROCEDURE: Section SURGEON: Dr. Jenn Nelson Assist: SENG Banks ANESTHESIA: Spinal COMPLICATIONS: None apparent. ESTIMATED BLOOD LOSS: 800cc INTRAVENOUS FLUIDS: 1500 mL crystalloid. URINE OUTPUT: 250 clear at the completion of the procedure. SPECIMENS: None INDICATIONS: Prior section x 2 Findings: Male at 1233 with apgars of 9, 9 and weight of 3888g, unremarkable placenta and pelvic anatomy DESCRIPTION OF PROCEDURE: The patient was taken to the operating room suite where spinal anesthesia was initiated. She was prepped and draped in the dorsal supine position. After verifying adequate anesthesia, Pfannenstiel skin incision was made and carried down to the underlying layer of the fascia, which was incised midline. Fascial incisions were extended superiorly and laterally. The superior edge of the fascia was grasped with Miranda, elevated up and the underlying rectus muscles were dissected off. Similarly, this was carried through on the inferior edge of the fascia as well. Rectus muscles were divided. Peritoneum was identified and entered. Peritoneal incisions were extended with good bladder visualization. An Edwin retractor was placed per cut filer instructions. Vesicouterine peritoneum was grasped with pickup and incised with Metzenbaum scissors. A bladder flap was created digitally. The lower uterine segment was incised in a transverse fashion and hysterotomy was extended superiorly and laterally. The infant was delivered in cephalic presentation with the vacuum atraumatically. Upon delivery, cord was clamped twice and cut. Infant was bulb suctioned and handed to the awaiting NICU/ team. Cord blood was obtained and sent to the lab for analysis. The placenta was delivered and noted to be intact with a three-vessel cord and was disposed off. Hysterotomy was closed in the usual running, locked fashion with #1-0 chromic. Excellent hemostasis was then noted post closure. The Edwin retractor was removed. Pelvis was copiously irrigated. Surgicel was added for additional hemostatic purpose. Peritoneum was reapproximated with #2-0 chromic. Fascia was closed with #0 Vicryl. Subcu was closed with #3-0 Vicryl. Skin was closed with #3-0 Monocryl. Steri-Strips and dressing were applied post procedure. The patient did go to Recovery in stable condition. The went to the nursery in stable condition. Antibiotics were given on-call to the operating room suite. Count was correct x 3. Electronically signed by Emily Potts Conversion Criminal Justice Department Chair Cerner at 07/08/2022 2:45 PM CDT documented in this encounter Plan of Treatment Not on file documented as of this encounter Visit Diagnoses Not on filedocumented in this encounter
--- OUTSIDE RECORDS SUMMARY | 2024-12-11 10:06 | XMS_ITS | Encounter Summary ---
Author Organization [employer] ([place], [place], [place], [place]) Address [address] [place] [address] Care Team Providers Care Fire Marshal Refinery Name Role Phone Unavailable Primary Care Provider Unavailabl e Encounter Details Date Type Department Care Team (Late st Contact Info) Description 04/06/2019 Transcribed Document [facility] [place] Family Medicine [facility] [place] [address] ProviderTamie MD [address] [place] [address] Social History Tobacco Use Types Packs/Day Years Used Date Smoking Tobacco: Never Assessed Comments Unknown Sex and Gender Information Value Date Recorded Sex Assigned at Not on file Legal Sex Female 6:35 PM CDT Gender Identity Not on file Sexual Orientation Not on file documented as of this encounter Miscellaneous Notes * Cerner Conversion Note - Tamie ProviderMD - 04/06/2019 11:15 AM BATHING SUIT MAKER Patient: GALA BALTAZAR Age: 23 Years Sex: Female : 1995 Chief Complaint: PO PP Day #1 s/p vacuum assisted repeat section Subjective Pt has no c/o today, denies s/s PPH or PPD. Pt is ambulating and voiding without difficulty. Pt states her pain is well controlled. Pt is breast feeding and states baby is doing well. Review of Systems VSS, Afebrile H&H 9.0/28.0 PLTS 147 Objective General: Pt is AA&OX4, in NAD, wd/wn, responds appropriately Breast: soft, non tender Cardiovascular: RRR without gallop or rub Lungs: CTA, b/l A&P Abdomen: soft, mildly tender, uterus is firm at 1 below Ext: MAEW or peripheral edema Incision/Episiotomy/Lac: Inc covered with mepilex Assessment/Plan PP PO Day #1, doing well, will continue current POC. 39 weeks gestation of Z3A.39 Breast feeding status of mother Z39.1 delivery delivered O82 History of 2 sections Z98.891 Single live Z37.0 Vacuum-assisted delivery, delivered, current hospitalization O66.5 1. Encourage ambulation/incentive spirometry every 15 minutes 2. DVT Prophylaxis 3. Tobacco abuse assessment: Smoker Yes(_)/No(X), If yes, plan: 4. control discussion and choice: will discuss at PPV 5. Feeding choice: Breast 6. Vaccinations: 7. Return appointment: [address] Nelson 8. depression follow-up plan: at d/c and PPV 9. Two hour OGTT scheduled for 6 week visit: Yes(_)/No(_) Infant Data (X) NICU (_) Medications Inpatient Adacel (Tdap), 0.5 [...] L 28.0 \ Electronically signed by Katlyn, Emily Conversion Software Installation Engineer Cerner at 07/08/2022 2:52 PM CDT documented in this encounter Plan of Treatment Not on file documented as of this encounter Visit Diagnoses Not on filedocumented in this encounter
--- OUTSIDE RECORDS SUMMARY | 2024-12-11 10:06 | XMS_ITS | Encounter Summary ---
Author Organization [facility] ([place], [place], [place], [place]) Address [address] [place] [address] Care Team Providers Care Instrument Inspector Name Role Phone Unavailable Primary Care Provider Unavailabl e Encounter Details Date Type Department Care Team (Late st Contact Info) Description 04/08/2019 Transcribed Document [facility] [place] Family Medicine [address] [place] [address] ProviderTamie MD [address] [place] [address] Social History Tobacco Use Types Packs/Day Years Used Date Smoking Tobacco: Never Assessed Comments Unknown Sex and Gender Information Value Date Recorded Sex Assigned at Not on file Legal Sex Female 6:35 PM CDT Gender Identity Not on file Sexual Orientation Not on file documented as of this encounter Miscellaneous Notes * Cerner Conversion Note - Tamie Vanegas MD - 04/08/2019 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 It can occur in women who are . This can make painful. Mastitis will sometimes go away on its own, especially if it is not caused by an infection (non-infectious mastitis). Your health care provider will help determine if medical treatment is needed. Treatment may be needed if the condition is caused by a bacterial infection (infectious mastitis). What are the causes? This condition is often associated with a blocked milkduct, which can happen when too much milk builds up in the breast. Causes of excess milk in the breast can include: ??? Poor latch-on. If your baby is not latched onto the breast properly, he or she may not empty your breast completely while . ??? Allowing too much time to pass between feedings. ??? Wearing a bra or other clothing that is too tight. This puts extra pressure on the milk ducts so milk does not flow through them as it should. ??? Milk remaining in the breast because it is overfilled (engorged). ??? Stress and fatigue. Mastitis can also be caused by a bacterial infection. Bacteria may enter the breast tissue through cuts, cracks, or openings in the skin near the nipple area. Cracks in the skin are often caused when your baby does not latch on properly to the breast. What are the signs or symptoms? Symptoms of this condition include: ??? Swelling, redness, tenderness, and pain in an area of the breast. This usually affects the upper part of the breast, toward the armpit region. In most cases, it affects only one breast. In some cases, it may occur on both breasts at the same time and affect a larger portion of breast tissue. ??? Swelling of the glands under the arm on the same side. ??? Fatigue, headache, and flu-like muscle aches. ??? Fever. ??? Rapid pulse. Symptoms usually last 2 to 5 days. Breast pain and redness are at their worst on day 2 and day 3, and they usually go away by day 5. If an infection is left to progress, a collection of pus (abscess) may develop. How is this diagnosed? This condition can be diagnosed based on your symptoms and a physical exam. You may also have tests, such as: ??? Blood tests to determine if your body is fighting a bacterial infection. ??? Mammogram or ultrasound tests to rule out other problems or diseases. ??? Fluid tests. If an abscess has developed, the fluid in the abscess may be removed with a needle. The fluid may be analyzed to determine if bacteria are present. ??? Breast milk may be cultured and tested for bacteria. How is this treated? This condition will sometimes go away on its own. Your health care provider may choose to wait 24 hours after first seeing you to decide whether treatment is needed. If treatment is needed, it may include: ??? Strategies to manage . This includes continuing to breastfeed or pump in order to allow adequate milk flow, using breast massage, and applying heat or cold to the affected area. ??? Self-care such as rest and increased fluid intake. ??? Medicine for pain. ??? Antibiotic medicine to treat a bacterial infection. This is usually taken by mouth. ??? If an abscess has developed, it may be treated by removing fluid with a needle. Follow these instructions at home: Medicines ??? Take xwst-oaw-[id number] and prescription medicines only as told by your health care provider. ??? If you were prescribed an antibiotic medicine, take it as told by your health care provider. Do not stop taking the antibiotic even if you start to feel better. General instructions ??? Do not wear a tight or underwire bra. Wear a soft, supportive bra. ??? Increase your fluid intake, especially if you have a fever. ??? Get plenty of rest. For : ??? Continue to empty your breasts as often as possible, either by or using an electric breast pump. This will lower the pressure and the pain that comes with it. Ask your health care provider if changes need to be made to your or pumping routine. ??? Keep your nipples clean and dry. ??? During , empty the first breast completely before going to the other breast. If your baby is not emptying your breasts completely, use a breast pump to empty your breasts. ??? Use breast massage during feeding or pumping sessions. ??? If directed, apply moist heat to the affected area of your breast right before or pumping. Use the heat source that your health care provider recommends. ??? If directed, put ice on the affected area of your breast right after or pumping: ? Put ice in a plastic bag. ? Place a towel between your skin and the bag. ? Leave the ice on for 20 minutes. ??? If you go back to work, pump your breasts while at work to stay in time with your nursing schedule. ??? Do not allow your breasts to become engorged. Contact a health care provider if: ??? You have pus-like discharge from the breast. ??? You have a fever. ??? Your symptoms do not improve within 2 days of starting treatment. ??? Your symptoms return after you have recovered from a breast infection. Get help right away if: ??? Your pain and swelling are getting worse. ??? You have pain that is not controlled with medicine. ??? You have a red line extending from the breast toward your armpit. Summary ??? Mastitis is inflammation of the breast tissue. It is often caused by a blocked milk duct or bacteria. ??? This condition may be treated with hot and cold compresses, medicines, self-care, and certain strategies. ??? If you were prescribed an antibiotic medicine, take it as told by your health care provider. Do not stop taking the antibiotic even if you start to feel better. ??? Continue to empty your breasts as often as possible either by or using an electric breast pump. This information is not intended to replace advice given to you by your health care provider. Make sure you discuss any questions you have with your health care provider. Document Released: 07/02/2005 Document Revised: 03/08/2017 Document Reviewed: 03/08/2017 [employer] Patient Education ? 2019 [employer] Choosing to breastfeed is one of the best decisions you can make for yourself and your baby. A change in hormones during causes your breasts to make breast milk in your milk-producing glands. Hormones prevent breast milk from being released before your baby is born. They also prompt milk flow after . Once has begun, thoughts of your baby, as well as his or her sucking or crying, can stimulate the release of milk from your milk-producing glands. Benefits of Research shows that offers many health benefits for infants and mothers. It also offers a cost-free and convenient way to feed your baby. For your baby ??? Your first milk (colostrum) helps your baby's digestive system to function better. ??? Special cells in your milk (antibodies) help your baby to fight off infections. ??? Breastfed babies are less likely to develop asthma, allergies, obesity, or type 2 diabetes. They are also at lower risk for sudden syndrome (SIDS). ??? Nutrients in breast milk are better able to meet your baby?s needs compared to formula. ??? Breast milk improves your baby's brain development. For you ??? helps to create a very special patino between you and your baby. ??? is convenient. Breast milk costs nothing and is always available at the correct temperature. ??? helps to burn calories. It helps you to lose the weight that you gained during . ??? makes your uterus return faster to its size before . It also slows bleeding (lochia) after you give . ??? helps to lower your risk of developing type 2 diabetes, osteoporosis, rheumatoid arthritis, cardiovascular disease, and breast, ovarian, uterine, and endometrial cancer later in life. basics Starting ??? Find a comfortable place to sit or lie down, with your neck and back well-supported. ??? Place a pillow or a rolled-up blanket under your baby to bring him or her to the level of your breast (if you are seated). Nursing pillows are specially designed to help support your arms and your baby while you breastfeed. ??? Make sure that your baby's tummy (abdomen) is facing your abdomen. ??? Gently massage your breast. With your fingertips, massage from the outer edges of your breast inward toward the nipple. This encourages milk flow. If your milk flows slowly, you may need to continue this action during the feeding. ??? Support your breast with 4 fingers underneath and your thumb above your nipple (make the letter C with your hand). Make sure your fingers are well away from your nipple and your baby?s mouth. ??? Stroke your baby's lips gently with your finger or nipple. ??? When your baby's mouth is open wide enough, quickly bring your baby to your breast, placing your entire nipple and as much of the areola as possible into your baby's mouth. The areola is the colored area around your nipple. ? More areola should be visible above your baby's upper lip than below the lower lip. ? Your baby's lips should be opened and extended outward (flanged) to ensure an adequate, comfortable latch. ? Your baby's tongue should be between his or her lower gum and your breast. ??? Make sure that your baby's mouth is correctly positioned around your nipple (latched). Your baby's lips should create a seal on your breast and be turned out (everted). ??? It is common for your baby to suck about 2?3 minutes in order to start the flow of breast milk. Latching Teaching your baby how to latch onto your breast properly is very important. An improper latch can cause nipple pain, decreased milk supply, and poor weight gain in your baby. Also, if your baby is not latched onto your nipple properly, he or she may swallow some air during feeding. This can make your baby fussy. Burping your baby when you switch breasts during the feeding can help to get rid of the air. However, teaching your baby to latch on properly is still the best way to prevent fussiness from swallowing air while . Signs that your baby has successfully latched onto your nipple ??? Silent tugging or silent sucking, without causing you pain. Infant's lips should be extended outward (flanged). ??? Swallowing heard between every 3?4 sucks once your milk has started to flow (after your let-down milk reflex occurs). ??? Muscle movement above and in front of his or her ears while sucking. Signs that your baby has not successfully latched onto your nipple ??? Sucking sounds or smacking sounds from your baby while . ??? Nipple pain. If you think your baby has not latched on correctly, slip your finger into the corner of your baby?s mouth to break the suction and place it between your baby's gums. Attempt to start again. Signs of successful Signs from your baby ??? Your baby will gradually decrease the number of sucks or will completely stop sucking. ??? Your baby will fall asleep. ??? Your baby's body will relax. ??? Your baby will retain a small amount of milk in his or her mouth. ??? Your baby will let go of your breast by himself or herself. Signs from you ??? Breasts that have increased in firmness, weight, and size 1?3 hours after feeding. ??? Breasts that are softer immediately after . ??? Increased milk volume, as well as a change in milk consistency and color by the fifth day of . ??? Nipples that are not sore, cracked, or bleeding. Signs that your baby is getting enough milk ??? Wetting at least 1?2 diapers during the first 24 hours after . ??? Wetting at least 5?6 diapers every 24 hours for the first week after . The urine should be clear or pale yellow by the age of 5 days. ??? Wetting 6?8 diapers every 24 hours as your baby continues to grow and develop. ??? At least 3 stools in a 24-hour period by the age of 5 days. The stool should be soft and yellow. ??? At least 3 stools in a 24-hour period by the age of 7 days. The stool should be seedy and yellow. ??? No loss of weight greater than 10% of weight during the first 3 days of life. ??? Average weight gain of 4?7 oz (113?198 g) per week after the age of 4 days. ??? Consistent daily weight gain by the age of 5 days, without weight loss after the age of 2 weeks. After a feeding, your baby may spit up a small amount of milk. This is normal. frequency and duration Frequent feeding will help you make more milk and can prevent sore nipples and extremely full breasts (breast engorgement). Breastfeed when you feel the need to reduce the fullness of your breasts or when your baby shows signs of hunger. This is called on demand. Signs that your baby is hungry include: ??? Increased alertness, activity, or restlessness. ??? Movement of the head from side to side. ??? Opening of the mouth when the corner of the mouth or cheek is stroked (rooting). ??? Increased sucking sounds, smacking lips, cooing, sighing, or squeaking. ??? Cnhg-gi-logxo movements and sucking on fingers or hands. ??? Fussing or crying. Avoid introducing a pacifier to your baby in the first 4-6 weeks after your baby is born. After this time, you may choose to use a pacifier. Research has shown that pacifier use during the first year of a baby's life decreases the risk of sudden syndrome (SIDS). Allow your baby to feed on each breast as long as he or she wants. When your baby unlatches or falls asleep while feeding from the first breast, offer the second breast. Because newborns are often sleepy in the first few weeks of life, you may need to awaken your baby to get him or her to feed. times will vary from baby to baby. However, the following rules can serve as a guide to help you make sure that your baby is properly fed: ??? Newborns (babies 4 weeks of age or younger) may breastfeed every 1?3 hours. ??? Newborns should not go without for longer than 3 hours during the day or 5 hours during the night. ??? You should breastfeed your baby a minimum of 8 times in a 24-hour period. Breast milk pumping Pumping and storing breast milk allows you to make sure that your baby is exclusively fed your breast milk, even at times when you are unable to breastfeed. This is especially important if you go back to work while you are still , or if you are not able to be present during feedings. Your integrity consultant can help you find a method of pumping that works best for you and give you guidelines about how long it is safe to store breast milk. Caring for your breasts while you breastfeed Nipples can become dry, cracked, and sore while . The following recommendations can help keep your breasts moisturized and healthy: ??? Avoid using soap on your nipples. ??? Wear a supportive bra designed especially for nursing. Avoid wearing underwire-style bras or extremely tight bras (sports bras). ??? Air-dry your nipples for 3?4 minutes after each feeding. ??? Use only cotton bra pads to absorb leaked breast milk. Leaking of breast milk between feedings is normal. ??? Use lanolin on your nipples after . Lanolin helps to maintain your skin's normal moisture barrier. Pure lanolin is not harmful (not toxic) to your baby. You may also hand express a few drops of breast milk and gently massage that milk into your nipples and allow the milk to air-dry. In the first few weeks after giving , some women experience breast engorgement. Engorgement can make your breasts feel heavy, warm, and tender to the touch. Engorgement peaks within 3?5 days after you give . The following recommendations can help to ease engorgement: ??? Completely empty your breasts while or pumping. You may want to start by applying warm, moist heat (in the shower or with warm, water-soaked hand towels) just before feeding or pumping. This increases circulation and helps the milk flow. If your baby does not completely empty your breasts while , pump any extra milk after he or she is finished. ??? Apply ice packs to your breasts immediately after or pumping, unless this is too uncomfortable for you. To do this: ? Put ice in a plastic bag. ? Place a towel between your skin and the bag. ? Leave the ice on for 20 minutes, 2?3 times a day. ??? Make sure that your baby is latched on and positioned properly while . If engorgement persists after 48 hours of following these recommendations, contact your health care provider or a integrity consultant. Overall health care recommendations while ??? Eat 3 healthy meals and 3 snacks every day. Well-nourished mothers who are need an additional 450?500 calories a day. You can meet this requirement by increasing the amount of a balanced diet that you eat. ??? Drink enough water to keep your urine pale yellow or clear. ??? Rest often, relax, and continue to take your vitamins to prevent fatigue, stress, and low vitamin and mineral levels in your body (nutrient deficiencies). ??? Do not use any products that contain nicotine or tobacco, such as cigarettes and e-cigarettes. Your baby may be harmed by chemicals from cigarettes that pass into breast milk and exposure to secondhand smoke. If you need help quitting, ask your health care provider. ??? Avoid alcohol. ??? Do not use illegal drugs or marijuana. ??? Talk with your health care provider before taking any medicines. These include uaex-ajr-vajgkgn and prescription medicines as well as vitamins and herbal supplements. Some medicines that may be harmful to your baby can pass through breast milk. ??? It is possible to become while . If control is desired, ask your health care provider about options that will be safe while your baby. Where to find more information: [employer]: www.llli.org Contact a health care provider if: ??? You feel like you want to stop or have become frustrated with . ??? Your nipples are cracked or bleeding. ??? Your breasts are red, tender, or warm. ??? You have: ? Painful breasts or nipples. ? A swollen area on either breast. ? A fever or chills. ? Nausea or vomiting. ? Drainage other than breast milk from your nipples. ??? Your breasts do not become full before feedings by the fifth day after you give . ??? You feel sad and depressed. ??? Your baby is: ? Too sleepy to eat well. ? Having trouble sleeping. ? More than 1 week old and wetting fewer than 6 diapers in a 24-hour period. ? Not gaining weight by 5 days of age. ??? Your baby has fewer than 3 stools in a 24-hour period. ??? Your baby's skin or the white parts of his or her eyes become yellow. Get help right away if: ??? Your baby is overly tired (lethargic) and does not want to wake up and feed. ??? Your baby develops an unexplained fever. Summary ??? offers many health benefits for infant and mothers. ??? Try to breastfeed your infant when he or she shows early signs of hunger. ??? Gently tickle or stroke your baby's lips with your finger or nipple to allow the baby to open his or her mouth. Bring the baby to your breast. Make sure that much of the areola is in your baby's mouth. Offer one side and burp the baby before you offer the other side. ??? Talk with your health care provider or integrity consultant if you have questions or you face problems as you breastfeed. This information is not intended to replace advice given to you by your health care provider. Make sure you discuss any questions you have with your health care provider. Document Released: 03/07/2006 Document Revised: 04/08/2017 Document Reviewed: 04/08/2017 [employer] Patient Education ? 2019 [employer] Delivery, Care After Refer to this sheet in the next few weeks. These instructions provide you with information about caring for yourself after your procedure. Your health care provider may also give you more specific instructions. Your treatment has been planned according to current medical practices, but problems sometimes occur. Call your health care provider if you have any problems or questions after your procedure. What can I expect after the procedure? After the procedure, it is common to have: ??? A small amount of blood or clear fluid coming from the incision. ??? Some redness, swelling, and pain in your incision area. ??? Some abdominal pain and soreness. ??? Vaginal bleeding (lochia). ??? Pelvic cramps. ??? Fatigue. Follow these instructions at home: Incision care ??? Follow instructions from your health care provider about how to take care of your incision. Make sure you: ? Wash your hands with soap and water before you change your bandage (dressing). If soap and water are not available, use hand chiropractic physician. ? If you have a dressing, change it as told by your health care provider. ? Leave stitches (sutures), skin chris, skin glue, or adhesive strips in place. These skin closures may need to stay in place for 2 weeks or longer. If adhesive strip edges start to loosen and curl up, you may trim the loose edges. Do not remove adhesive strips completely unless your health care provider tells you to do that. ??? Check your incision area every day for signs of infection. Check for: ? More redness, swelling, or pain. ? More fluid or blood. ? Warmth. ? Pus or a bad smell. ??? When you cough or sneeze, hug a pillow. This helps with pain and decreases the chance of your incision opening up (dehiscing). Do this until your incision heals. Medicines ??? Take usvr-cnt-pnnbsjs and prescription medicines only as told by your health care provider. ??? If you were prescribed an antibiotic medicine, take it as told by your health care provider. Do not stop taking the antibiotic until it is finished. Driving ??? Do not drive or operate heavy machinery while taking prescription pain medicine. Lifestyle ??? Do not drink alcohol. This is especially important if you are or taking pain medicine. ??? Do not use tobacco products, including cigarettes, chewing tobacco, or e-cigarettes. If you need help quitting, ask your health care provider. Tobacco can delay wound healing. Eating and drinking ??? Drink at least 8 eight-ounce glasses of water every day unless told not to by your health care provider. If you breastfeed, you may need to drink more water than this. ??? Eat high-fiber foods every day. These foods may help prevent or relieve constipation. High-fiber foods include: ? Whole grain cereals and breads. ? Brown rice. ? Beans. ? Fresh fruits and vegetables. Activity ??? Return to your normal activities as told by your health care provider. Ask your health care provider what activities are safe for you. ??? Rest as much as possible. Try to rest or take a nap while your baby is sleeping. ??? Do not lift anything that is heavier than your baby or 10 lb (4.5 kg) as told by your health care provider. ??? Ask your health care provider when you can engage in sexual activity. This may depend on your: ? Risk of infection. ? Healing rate. ? Comfort and desire to engage in sexual activity. Bathing ??? Do not take baths, swim, or use a hot tub until your health care provider approves. Ask your health care provider if you can take showers. You may only be allowed to take sponge baths until your incision heals. General instructions ??? Do not use tampons or douches until your health care provider approves. ??? Wear: ? Loose, comfortable clothing. ? A supportive and well-fitting bra. ??? Watch for any blood clots that may pass from your vagina. These may look like clumps of dark red, brown, or black discharge. ??? Keep your perineum clean and dry as told by your health care provider. ??? Wipe from front to back when you use the toilet. ??? If possible, have someone help you care for your baby and help with household activities for a few days after you leave the hospital. ??? Keep all follow-up visits for you and your baby as told by your health care provider. This is important. Contact a health care provider if: ??? You have: ? Bad-smelling vaginal discharge. ? Difficulty urinating. ? Pain when urinating. ? A sudden increase or decrease in the frequency of your bowel movements. ? More redness, swelling, or pain around your incision. ? More fluid or blood coming from your incision. ? Pus or a bad smell coming from your incision. ? A fever. ? A rash. ? Little or no interest in activities you used to enjoy. ? Questions about caring for yourself or your baby. ? Nausea. ??? Your incision feels warm to the touch. ??? Your breasts turn red or become painful or hard. ??? You feel unusually sad or worried. ??? You vomit. ??? You pass large blood clots from your vagina. If you pass a blood clot, save it to show to your health care provider. Do not flush blood clots down the toilet without showing your health care provider. ??? You urinate more than usual. ??? You are dizzy or light-headed. ??? You have not breastfed and have not had a menstrual period for 12 weeks after delivery. ??? You stopped and have not had a menstrual period for 12 weeks after stopping . Get help right away if: ??? You have: ? Pain that does not go away or get better with medicine. ? Chest pain. ? Difficulty breathing. ? Blurred vision or spots in your vision. ? Thoughts about hurting yourself or your baby. ? New pain in your abdomen or in one of your legs. ? A severe headache. ??? You faint. ??? You bleed from your vagina so much that you fill two sanitary pads in one hour. This information is not intended to replace advice given to you by your health care provider. Make sure you discuss any questions you have with your health care provider. Document Released: 11/27/2002 Document Revised: 04/09/2017 Document Reviewed: 02/09/2016 Elsevier Interactive Patient Education ? 2018 [employer] documented in this encounter Plan of Treatment Not on file documented as of this encounter Visit Diagnoses Not on filedocumented in this encounter
--- OUTSIDE RECORDS SUMMARY | 2024-12-11 10:06 | XMS_ITS | Clinical Summary ---
Author Organization [employer] ([place], [place], [place], [place]) Address [address] [place] [address] Care Team Providers Care Telegraph Office Telephone Clerk Name Role Phone Unavailable Primary Care Provider Unavailabl e Social History Tobacco Use Types Packs/Day Years Used Date Smoking Tobacco: Never Assessed Food Insecurity Answer Date Recorded Food run out past 12 months Not on file 03/21 Food did not last past 12 months Not on file 04/08/2023 Employment Answer Date Recorded Help finding and keeping a job Not on file 0 04/08/2023 Family and Community Support Answer Adelso e Recorded Help with Day to Day Activities Not on file 04/08/2023 Feeling Lonely or Isolated Not on file 04/08 Educational Attainment Answer Date Hema rded Speak language other than Setswana at home Not on file 04/08/2023 Want help with school or training Not on file 04/08/2023 Substance Use Answer Date Recorded Used prescription meds for non-medical reasons N ot on file 04/08/2023 Used illegal drugs past 12 months Not on file 04/08/2023 Comments Unknown Sex and Gender Information Value Date Recorded Sex Assigned at Not on file Legal Sex Female 6:35 PM CDT Gender Identity Not on file Sexual Orientation Not on file Plan of Treatment Health Maintenance Due Date Last Done Comments Depression Screening (12+) 2007 Tobacco Cessation Counseling and Screening (12+) 2007 HIV Screening 05/31/2010 Hepatitis C Screening 05/31/2013 Pap Smear 05/31/2016 COVID-19 VACCINE ( - 2024-2 6 season) 2024 11/17/2020, 10/25/2020 Influenza Vaccine (#1) 2024 DTAP/TDAP/TD VACCINES (3 - T d or Tdap) 03/23/2026 03/23/2016, 08/15/2008 Pneumococcal Vaccine: 0-49 Years Aged Out No longer eligible b ased on patient's age [place] [address] [place] [address] [employer] [facility] [place] [address]
--- OUTSIDE RECORDS SUMMARY | 2024-12-11 10:06 | XMS_ITS | Encounter Summary ---
Author Organization [employer] ([place], [place], [place], [place]) Address [address] [place] [address] Care Team Providers Care Blind Hooker Name Role Phone Unavailable Primary Care Provider Unavailabl e Encounter Details Date Type Department Care Team (Late st Contact Info) Description 04/23/2019 Transcribed Document [facility] [place] [address] [place] [address] ProviderTamie MD [address] [place] [address] Social History Tobacco Use Types Packs/Day Years Used Date Smoking Tobacco: Never Assessed Comments Unknown Sex and Gender Information Value Date Recorded Sex Assigned at Not on file Legal Sex Female 6:35 PM CDT Gender Identity Not on file Sexual Orientation Not on file documented as of this encounter Miscellaneous Notes * [employer] Conversion Note - Tamie ProviderMD - 04/23/2019 8:35 AM SHIPYARD LABORER UM Authorization Entered On: 04/23/2019 8:35 EST Performed On: 04/23/2019 8:35 EST by FLORES LOVETT RN Primary Insurance Authorization Authorization and Policy Numbers : Insurance 1 Health Plan: [employer] Policy Number: [id number] Authorization Number: DENIED- SENT TO APPEALS Insurance Primary Name : [employer] Policy Number: [id number] Authorization Status-Primary : Denied Authorized Service Begin Date-Primary : 04/05/2019 EST Authorization Comments-Primary : Received fax stating that appeal has been initiated. Historical Authorization Comments-Primary : Comment 1: Sent [...] of denial emailed to Flores Lovett (Lucila Nash, Sherri-Utilization Review 04/06/2019 14:56) Comment 4: Per Loulou at Dr Nelson's office, precert was not obtained. (scheduled ) Laquita at [facility] will issue an administrative denial (Lucila Nash, Sherri-Utilization Review 04/06/2019 14:54) Comment 5: Delivery summary faxed to [facility] (Lucila Nash, Sherri-Utilization Review 04/05/2019 15:38) FLORES LOVETT RN - 04/23/2019 8:35 EST Electronically signed by Emily Potts Conversion Administrative Services Officer Cerner at 07/08/2022 2:57 PM CDT documented in this encounter Plan of Treatment Not on file documented as of this encounter Visit Diagnoses Not on filedocumented in this encounter
--- OUTSIDE RECORDS SUMMARY | 2024-12-11 10:06 | XMS_ITS | Encounter Summary ---
Author Organization [employer] ([place], [place], [place], [place]) Address [address] [place] [address] Care Team Providers Care Car Installations Supervisor Name Role Phone Unavailable Primary Care Provider Unavailabl e Encounter Details Date Type Department Care Team (Late st Contact Info) Description 04/06/2019 Transcribed Document [facility] [place] [facility] [place] [address] ProviderTamie MD [address] [place] [address] Social History Tobacco Use Types Packs/Day Years Used Date Smoking Tobacco: Never Assessed Comments Unknown Sex and Gender Information Value Date Recorded Sex Assigned at Not on file Legal Sex Female 6:35 PM CDT Gender Identity Not on file Sexual Orientation Not on file documented as of this encounter Miscellaneous Notes * [employer]ner Conversion Note - Tamie ProviderMD - 04/06/2019 3:22 PM INVESTOR RELATIONS SPECIALIST UM Authorization Entered On: 04/06/2019 15:22 EST Performed On: 04/06/2019 15:22 EST by Lucila Nash Rn-Utilization Review Primary Insurance Authorization Authorization and Policy Numbers : Insurance 1 Health Plan: [facility] Policy Number: [id number] Authorization Number: Insurance Primary Name : [facility] Policy Number: [id number] Authorization Status-Primary : Denied Authorized Service Begin Date-Primary : 04/05/2019 EST Historical Authorization Comments-Primary : Comment 1: Notification of denial emailed to Trinity Muñoz (Lucila Nash Rn-Utilization Review 04/06/2019 14:56) Comment 2: Per Loulou at Dr Nelson's office, precert was not obtained. (scheduled ) Laquita at [facility] will issue an administrative denial (Lucila Nash Rn-Utilization Review 04/06/2019 14:54) Comment 3: Delivery summary faxed to [facility] (Nash, Lucila, Rn-Utilization Review 04/05/2019 15:38) Lucila Nash Rn-Utilization Review - 04/06/2019 15:22 EST documented in this encounter Plan of Treatment Not on file documented as of this encounter Visit Diagnoses Not on filedocumented in this encounter
--- OUTSIDE RECORDS SUMMARY | 2024-12-11 10:06 | XMS_ITS | Encounter Summary ---
Author Organization [employer] ([place], [place], [place], [place]) Address [address] [place] [address] Care Team Providers Care Asbestos Cement Sheet Supervisor Name Role Phone Unavailable Primary Care Provider Unavailabl e Encounter Details Date Type Department Care Team (Late st Contact Info) Description 04/06/2019 Transcribed Document [facility] [place] [facility] [place] [address] ProviderTamie MD [facility] [place] [address] Social History Tobacco Use Types Packs/Day Years Used Date Smoking Tobacco: Never Assessed Comments Unknown Sex and Gender Information Value Date Recorded Sex Assigned at Not on file Legal Sex Female 6:35 PM CDT Gender Identity Not on file Sexual Orientation Not on file documented as of this encounter Miscellaneous Notes * [employer]ner Conversion Note - Tamie ProviderMD - 04/06/2019 2:54 PM HOOK PULLER UM Authorization Entered On: 04/06/2019 14:55 EST Performed On: 04/06/2019 14:54 EST by Lucila Nash Rn-Utilization Review Primary Insurance Authorization Authorization and Policy Numbers : Insurance 1 Health Plan: [facility] Policy Number: [id number] Authorization Number: Insurance Primary Name : [facility] Policy Number: [id number] Authorization Status-Primary : Notification only Authorized Service Begin Date-Primary : 04/05/2019 EST Authorization Comments-Primary : Keagan Jamil at Dr Nelson's office, precert was not obtained. (scheduled ) Laquita at [facility] will issue an administrative denial Historical Authorization Comments-Primary : Comment 1: Delivery summary faxed to [facility] (Lucila Nash Rn-Utilization Review 04/05/2019 15:38) Lucila Nash Rn-Utilization Review - 04/06/2019 14:54 EST documented in this encounter Plan of Treatment Not on file documented as of this encounter Visit Diagnoses Not on filedocumented in this encounter
--- OUTSIDE RECORDS SUMMARY | 2024-12-11 10:06 | XMS_ITS | Encounter Summary ---
Author Organization [employer] ([place], [place], [place], [place]) Address [address] [place] [address] Care Team Providers Care Wound Care Technician Name Role Phone Unavailable Primary Care Provider Unavailabl e Encounter Details Date Type Department Care Team (Late st Contact Info) Description 04/09/2019 Transcribed Document [facility] [place] Family Medicine [address] [place] [address] ProviderTamie MD [address] [place] [address] Social History Tobacco Use Types Packs/Day Years Used Date Smoking Tobacco: Never Assessed Comments Unknown Sex and Gender Information Value Date Recorded Sex Assigned at Not on file Legal Sex Female 6:35 PM CDT Gender Identity Not on file Sexual Orientation Not on file documented as of this encounter Miscellaneous Notes * [employer]ner Conversion Note - Tamie ProviderMD - 04/09/2019 8:36 AM WEAPONS SYSTEM INSTRUMENT MECHANIC UM Authorization Entered On: 04/09/2019 8:39 EST Performed On: 04/09/2019 8:36 EST by FLORES LOVETT RN Primary Insurance Authorization Authorization and Policy Numbers : Insurance 1 Health Plan: [facility] Policy Number: [id number] Authorization Number: Insurance Primary Name : [facility] Policy Number: [id number] Authorization Status-Primary : Denied Authorized Service Begin Date-Primary : 04/05/2019 EST Authorization Comments-Primary : Called MD office and informed them that admission has been administratively denied. Spoke with Callie Jamil and informed them the MD office and Hospital would have to file an appeal for this admission. Historical Authorization Comments-Primary : Comment 1: Notification of denial emailed to Flores Lovett (Lucila Nash Rn-Utilization Review 04/06/2019 14:56) Comment 2: Per Loulou at Dr Nelson's office, precert was not obtained. (scheduled ) Laquita at [facility] will issue an administrative denial (Lucila Nash, Rn-Utilization Review 04/06/2019 14:54) Comment 3: [facility] (Lucila Nash, Sherri-Utilization Review 04/05/2019 15:38) FLORES LOVETT RN - 04/09/2019 8:36 EST Electronically signed by [facility] Conversion Expanded Function Dental Assistant Cerner at 07/08/2022 2:46 PM CDT documented in this encounter Plan of Treatment Not on file documented as of this encounter Visit Diagnoses Not on filedocumented in this encounter
--- OUTSIDE RECORDS SUMMARY | 2024-12-11 10:06 | XMS_ITS | Clinical Summary ---
Author Organization [facility] Address [address] [place] [address] Care Team Providers Care Process Line Operator Name Role Phone RayArlyn MALVIN Primary Care Provider [phone] Social History Tobacco Use Types Packs/Day Years Used Date Smoking Tobacco: Never Assessed Abuse Screen Answer Date Recorded Unsafe at Home or Work/School Not on file Feels Threatened by Someone? Not on file 11/2022 Does Anyone Keep You from Co ntacting Others or Doint Things Outside the Home? Not on file 12/27/2022 Physical Sign of Abuse Present Not on file 1 Housing Stability Answer Date Recorded Current Living Arrangements Not on file 11/2022 Potentially Unsafe Housing Conditions Not on kayli e 12/27/2022 Family and Community Support Answer Adelso e Recorded Help with Day-to-Day Activities Not on file 12/27/2022 Lonely or Isolated Not on file 12/27/2022 Employment Answer Date Recorded Do you want help finding or keeping work or a sumit b? Not on file 12/27/2022 Disabilities Answer Date Recorded Concentrating, Remembering, or Making Decisions Difficulty Not on file 12/27/2022 Doing Errands Independently Difficulty Not on fi le 12/27/2022 Education Answer Date Recorded Help with school or training? Not on file Preferred Language Not on file 12/27/2022 Comments Unknown Sex and Gender Information Value Date Recorded Sex Assigned at Not on file Legal Sex Female 10:51 AM EDT Gender Identity Not on file Sexual Orientation Not on file Plan of Treatment Health Maintenance Due Date Last Done Comments ANNUAL PHYSICAL 1995 Annual Gynecologic Pelvic an d Breast Exam 1995 TDAP/TD VACCINES (1 - Tdap) 05/31/2014 INFLUENZA VACCINE 10/19/2024 HEPATITIS C SCREENING Completed 03/31/2017 Pneumococcal Vaccine 0-49 Aged Out No longer eligible based on patient's age to complete this topic Procedures Procedure Name Priority Date/Time Associated Diagnosis Comments HEPATITIS C ANTIBODY Routine 03/31/2017 4:40 PM EST Venereal disease contact from Last 3 Months or Most Recently Relevant to Health Maintenance Results * Hepatitis C Antibody (03/31/2017 4:40 PM EST) Hepatitis C Ab Non-Reacti ve Non-Reacti ve 03/31/2017 7:49 PM EST [facility] Blood Venipuncture / Unknown 03/31/2017 4:40 PM EST 03/31/2017 4:40 PM EST Arlyn Bell CNM LAB BLOOD ORDERABLES Final Re sult [facility]
[address] [place] [address], from Last 3 Months or Most Recently Relevant to Health Maintenance Insurance Care Teams Process Line Operator Relationship Specialty Start Date End Date Arlyn Bell CNM PCP - General Certified Nurse Route Rider 03/31/17
--- OUTSIDE RECORDS SUMMARY | 2024-12-11 10:06 | XMS_ITS | Encounter Summary ---
Author Organization [employer] ([place], [place], [place], [place]) Address [address] [place] [address] Care Team Providers Care Health Records Technology Teacher Name Role Phone Unavailable Primary Care Provider Unavailabl e Encounter Details Date Type Department Care Team (Late st Contact Info) Description 04/06/2019 Transcribed Document [facility] [place] [facility] [place] [address] ProviderTamie MD [address] [place] [address] Social History Tobacco Use Types Packs/Day Years Used Date Smoking Tobacco: Never Assessed Comments Unknown Sex and Gender Information Value Date Recorded Sex Assigned at Not on file Legal Sex Female 6:35 PM CDT Gender Identity Not on file Sexual Orientation Not on file documented as of this encounter Miscellaneous Notes * Cerner Conversion Note - Tamie ProviderMD - 04/06/2019 2:56 PM TECHNICAL SALES ASSOCIATE UM Authorization Entered On: 04/06/2019 14:57 EST Performed On: 04/06/2019 14:56 EST by Lucila Nash Rn-Utilization Review Primary Insurance Authorization Authorization and Policy Numbers : Insurance 1 Health Plan: [employer] Policy Number: [id number] Authorization Number: Insurance Primary Name : [employer] Policy Number: [id number] Authorization Status-Primary : Notification only Authorized Service Begin Date-Primary : 04/05/2019 EST Authorization Comments-Primary : Notification of denial emailed to Trinity Muñoz Historical Authorization Comments-Primary : Comment 1: Keagan Jamil at Dr Nelson's office, precert was not obtained. (scheduled ) Laquita at [facility] will issue an administrative denial (Lucila Nash Rn-Utilization Review 04/06/2019 14:54) Comment 2: Delivery summary faxed to [facility] (Lucila Nash Rn-Utilization Review 04/05/2019 15:38) Lucila Nash Rn-Utilization Review - 04/06/2019 14:56 EST Electronically signed by [facility] Conversion Shank Tapper Cerner at 07/08/2022 2:59 PM CDT documented in this encounter Plan of Treatment Not on file documented as of this encounter Visit Diagnoses Not on filedocumented in this encounter
--- OUTSIDE RECORDS SUMMARY | 2024-12-11 10:07 | XMS_ITS | Encounter Summary ---
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 Role Phone Unavailable Primary Care Provider Unavailabl e Encounter Details Date Type Department Care Team (Late st Contact Info) Description 04/08/2019 Transcribed Document [facility] [place] [facility] [place] [address] ProviderTamie MD [facility] [place] [address] Social History Tobacco Use Types Packs/Day Years Used Date Smoking Tobacco: Never Assessed Comments Unknown Sex and Gender Information Value Date Recorded Sex Assigned at Not on file Legal Sex Female 6:35 PM CDT Gender Identity Not on file Sexual Orientation Not on file documented as of this encounter Miscellaneous Notes * Cerner Conversion Note - Tamie ProviderMD - 04/08/2019 11:49 AM 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[place] [id number] GALA BALTAZAR :1995 Visit Time:04/05/2019 Your Visit Summary Your Care Team Admitting Physician - BENJAMIN NORRIS DO Attending Physician - BENJAMIN NORRIS, Primary Care Physician - AIDA LEVINE DR Referring Physician - BENJAMIN NORRIS DO Your Diagnosis 39 weeks gestation of Breast feeding status of mother delivery delivered History of 2 sections Single live Vacuum-assisted delivery, delivered, current hospitalization What to do next Instructions From Your Care Team Diet after Discharge: Resume usual diet as tolerated Drink at least 8-10 glasses of water a day Do not drink any alcoholic beverages Add 500 extra calories daily if Eat a 1-2 carbohydrate snack before or during Activity After Discharge:As tolerated,Rest and relax today,No strenuous activities,Nothing in the vagina for 6 weeks Minimize Stair Climbing Discuss Exercise with your physician Driving after Discharge:No driving while on pain medication May Return to Work: After 6 week follow up Showering Bathing:May Shower Breast Care: Wear supportive bras as much as possible Place ice packs on breasts to help decrease swelling Avoid applying heat to breasts If nipple soreness occurs, rub colostrum (breastmilk) or a pea-sized amount of lanolin on nipples after feeding Practice self-breast exam monthly , Notify Provider of: Redness, swelling, or drainage from incision Foul smelling vaginal discharge Temperature over 101 degrees Fahrenheit Signs of depression or anxiety that makes it hard for you to care for yourself or your baby Weight up more than 2 pounds a day or more than 5 pounds in a week Incision pulling apart Pass blood clots larger than a golf ball Sharp pain or redness in your legs Painful urination or feeling like you have to go to the bathroom all the time Have breast pain with fever and chills Excessive vomiting or diarrhea Vaginal bleeding greater than 1 pad per hour Pain is worsening and current pain medication is not adequate When to go to the Emergency Room or call 911: Shortness of breath or chest pain Unable to reach provider Wound/Incision Care After Discharge: Keep operative site/wound site clean and dry Remove remaining steri-strips after 7-10 days Change dressing with dry dressing daily and as needed DO NOT change dressing, may reinforce as needed Discharge Activity: Discharge Activity: Activity as tolerated Diet: Discharge Diet: Resume usual diet as tolerated Follow-Up Appointments Follow Up with BENJAMIN NORRIS When Within 2 weeks Where: [address] [place] [address] [facility] (1) Medications What How Much When Instructions Next Dose acetaminophen-oxyCODONE (Percocet 5/ 325 oral tablet) 1 Tablet(s) Oral Every 4 Hours as needed for Pain (Moderate 4-6) Printed Prescription ibuprofen (ibuprofen 800 mg oral tablet) 1 Tablet(s) Oral Every 8 Hours Printed Prescription albuterol (ProAir HFA 90 mcg/ inh inhalation aerosol) Inhalation Four Times A Day ferrous fumarate (ferrous fumarate 324 mg (106 mg elemental iron) oral tablet) Oral Every Day multivitamin, (Classic ) Oral Every Day Take your medications faithfully. Do NOT skip [...] Please dispose of unused and medications per your retail pharmacy guidance. Allergies penicillin (Drug rash) Latex Soy Immunizations This Visit No Immunizations Found Education Materials and Mastitis Mastitis is inflammation of the [...] these instructions at home: Medicines ??? Take lsxt-twm-habjoji and prescription medicines only as told by [...] 07/02/2005 Document Revised: 03/08/2017 Document Reviewed: 03/08/2017 [employer] Patient Education ?? 2019 [employer]. Choosing to breastfeed is one of the [...] milk are better able to meet your baby???s needs compared to infant formula. ??? Breast milk improves your baby's [...] well away from your nipple and your baby???s mouth. ??? Stroke your baby's lips gently [...] common for your baby to suck about 2???3 minutes in order to start the flow [...] or silent sucking, without causing you pain. 's lips should be extended outward (flanged). ??? Swallowing heard between every 3???4 sucks once your milk has started to [...] your finger into the corner of your baby???s mouth to break the suction and place [...] have increased in firmness, weight, and size 1???3 hours after feeding. ??? Breasts that are softer immediately after . ??? Increased milk volume, as well as a change in milk consistency and color by the fifth day of . ??? Nipples that are not sore, cracked, or bleeding. Signs that your baby is getting enough milk ??? Wetting at least 1???2 diapers during the first 24 hours after . ??? Wetting at least 5???6 diapers every 24 hours for the first week after . The urine should be clear or pale yellow by the age of 5 days. ??? Wetting 6???8 diapers every 24 hours as your baby [...] of life. ??? Average weight gain of 4???7 oz (113???198 g) per week after the age of [...] smacking lips, cooing, sighing, or squeaking. ??? Qrim-tj-wiltr movements and sucking on fingers or hands. ??? Fussing or crying. Avoid introducing a pacifier to your baby in the first 4-6 weeks after your baby is born. After this time, you may choose to use a pacifier. Research has shown that pacifier use during the first year of a baby's life decreases the risk of sudden infant syndrome (SIDS). Allow your baby to feed [...] of age or younger) may breastfeed every 1???3 hours. ??? Newborns should not go without [...] able to be present during feedings. Your data migration consultant can help you find a method [...] (sports bras). ??? Air-dry your nipples for 3???4 minutes after each feeding. ??? Use only [...] tender to the touch. Engorgement peaks within 3???5 days after you give . The following [...] Leave the ice on for 20 minutes, 2???3 times a day. ??? Make sure that your baby is latched on and positioned properly while . If engorgement persists after 48 hours of following these recommendations, contact your health care provider or a data migration consultant. Overall health care recommendations while ??? Eat 3 healthy meals and 3 snacks every day. Well-nourished mothers who are need an additional 450???500 calories a day. You can meet this [...] provider before taking any medicines. These include qxqz-xxq-sbyosey and prescription medicines as well as vitamins and herbal supplements. Some medicines that may be harmful to your baby can pass through breast milk. ??? It is possible to become while . If control is desired, ask your health care provider about options that will be safe while your baby. Where to find more information: [employer]: www.llli.org Contact a health care [...] Summary ??? offers many health benefits for and mothers. ??? Try to breastfeed your when he or she shows early signs [...] Talk with your health care provider or data migration consultant if you have questions or you face problems as you breastfeed. This information is not intended to replace advice given to you by your health care provider. Make sure you discuss any questions you have with your health care provider. Document Released: 03/07/2006 Document Revised: 04/08/2017 Document Reviewed: 04/08/2017 [employer] Patient Education ?? 2019 [employer] Delivery, Care After Refer to this [...] and water are not available, use hand senior architect/design manager. ? If you have a dressing, change [...] until your incision heals. Medicines ??? Take wptn-ojh-mbjxpww and prescription medicines only as told by [...] 11/27/2002 Document Revised: 04/09/2017 Document Reviewed: 02/09/2016 [employer] Patient Education ?? 2018 [employer]. ibuprofen (EYE bue PROE fen) Advil, Genpril, IBU, Midol IB, Motrin IB, Proprinal, Smart Sense Children's Ibuprofen What is the most important information I should know about ibuprofen? Ibuprofen can increase your risk of fatal heart attack or stroke, especially if you use it joint terminal attack controller or take high doses, or if you have heart disease. Do not use this medicine just before or after heart bypass surgery (coronary artery bypass graft, or CABG). Ibuprofen may also cause stomach or intestinal bleeding, which can be fatal. These conditions can occur without warning while you are using ibuprofen, especially in older adults. What is ibuprofen? Ibuprofen is a nonsteroidal anti-inflammatory drug (NSAID). Ibuprofen works by reducing hormones that cause inflammation and pain in the body. Ibuprofen is used to reduce fever and treat pain or inflammation caused by many conditions such as headache, toothache, back pain, arthritis, menstrual cramps, or minor injury. This medicine is used in adults and children who are at least 6 months old. Ibuprofen may also be used for purposes not listed in this medication guide. What should I discuss with my healthcare provider before taking ibuprofen? Ibuprofen can increase your risk of fatal heart attack or stroke, especially if you use it joint terminal attack controller or take high doses, or if you have heart disease. Even people without heart disease or risk factors could have a stroke or heart attack while taking this medicine. Do not use this medicine just before or after heart bypass surgery (coronary artery bypass graft, or CABG). Ibuprofen may also cause stomach or intestinal bleeding, which can be fatal. These conditions can occur without warning while you are using ibuprofen, especially in older adults. You should not use ibuprofen if you are allergic to it, or if you have ever had an asthma attack or severe allergic reaction after taking aspirin or an NSAID. Ask a doctor or pharmacist if it is safe for you to take this medicine if you have: ?? heart disease, high blood pressure, high cholesterol, diabetes, or if you smoke; ?? a history of heart attack, stroke, or blood clot; ?? a history of stomach ulcers or bleeding; ?? asthma; ?? liver or kidney disease; ?? fluid retention; or ?? a connective tissue disease such as Marfan syndrome, Sjogren's syndrome, or lupus. Taking ibuprofen during the last 3 months of may harm the unborn baby. Do not use this medicine without a doctor's advice if you are . It is not known whether ibuprofen passes into breast milk or if it could affect a nursing baby. Ask a doctor before using this medicine if you are . Do not give ibuprofen to a child younger than 2 years old without the advice of a doctor. How should I take ibuprofen? Use exactly as directed on the label, or as prescribed by your doctor. Do not use in larger amounts or for longer than recommended. Use the lowest dose that is effective in treating your condition. Do not take more than your recommended dose. An ibuprofen overdose can damage your stomach or intestines. The maximum amount of ibuprofen for adults is 800 milligrams per dose or 3200 mg per day (4 maximum doses). Use only the smallest amount of ibuprofen needed to get relief from your pain, swelling, or fever. A child's dose of ibuprofen is based on the age and weight of the child. Carefully follow the dosing instructions provided with children's ibuprofen for the age and weight of your child. Ask a doctor or pharmacist if you have questions. Take ibuprofen with food or milk to lessen stomach upset. Shake the oral suspension (liquid) well just before you measure a dose. Measure liquid medicine with the dosing syringe provided, or with a special dose-measuring spoon or medicine cup. If you do not have a dose-measuring device, ask your pharmacist for one. The ibuprofen chewable tablet must be chewed before you swallow it. If you use this medicine long-term, you may need frequent medical tests. Store at room temperature away from moisture and heat. Do not allow the liquid medicine to freeze. Read all patient information, medication guides, and instruction sheets provided to you. Ask your doctor or pharmacist if you have any questions. What happens if I miss a dose? Since ibuprofen is used when needed, you may not be on a dosing schedule. If you are on a schedule, use the missed dose as soon as you remember. Skip the missed dose if it is almost time for your next scheduled dose. Do not use extra medicine to make up the missed dose. What happens if I overdose? Seek emergency medical attention or call the Poison Help line at . Overdose symptoms may include nausea, vomiting, stomach pain, drowsiness, black or bloody stools, coughing up blood, shallow breathing, fainting, or coma. What should I avoid while taking ibuprofen? Avoid drinking alcohol. It may increase your risk of stomach bleeding. Avoid taking aspirin while you are taking ibuprofen. Avoid taking ibuprofen if you are taking aspirin to prevent stroke or heart attack. Ibuprofen can make aspirin less effective in protecting your heart and blood vessels. If you must use both medications, take the ibuprofen at least 8 hours before or 30 minutes after you take the aspirin (non-enteric coated form). Ask a doctor or pharmacist before using any cold, allergy, or pain medicine. Many medicines available over the counter contain aspirin or other medicines similar to ibuprofen. Taking certain products together can cause you to get too much of this type of medication. Check the label to see if a medicine contains aspirin, ibuprofen, ketoprofen, or naproxen. What are the possible side effects of ibuprofen? Get emergency medical help if you have signs of an allergic reaction: sneezing, runny or stuffy nose; wheezing or trouble breathing; hives; swelling of your face, lips, tongue, or throat. Get emergency medical help if you have signs of a heart attack or stroke: chest pain spreading to your jaw or shoulder, sudden numbness or weakness on one side of the body, slurred speech, leg swelling, feeling short of breath. Stop using ibuprofen and call your doctor at once if you have: ?? changes in your vision; ?? shortness of breath (even with mild exertion); ?? swelling or rapid weight gain; ?? the first sign of any skin rash, no matter how mild; ?? signs of stomach bleeding--bloody or tarry stools, coughing up blood or vomit that looks like coffee grounds; ?? liver problems--nausea, upper stomach pain, itching, tired feeling, flu-like symptoms, loss of appetite, dark urine, amara-colored stools, jaundice (yellowing of the skin or eyes); ?? kidney problems--little or no urinating, painful or difficult urination, swelling in your feet or ankles, feeling tired or short of breath; ?? low red blood cells (anemia)--pale skin, feeling light-headed or short of breath, rapid heart rate, trouble concentrating; or ?? severe skin reaction--fever, sore throat, swelling in your face or tongue, burning in your eyes, skin pain followed by a red or purple skin rash that spreads (especially in the face or upper body) and causes blistering and peeling. Common side effects may include: ?? nausea, vomiting, gas; ?? bleeding; or ?? dizziness, headache. This is not a complete list of side effects and others may occur. Call your doctor for medical advice about side effects. You may report side effects to FDA at 2-835-WMB-2159. What other drugs will affect ibuprofen? Ask your doctor before using ibuprofen if you take an antidepressant such as citalopram, escitalopram, fluoxetine (Prozac), fluvoxamine, paroxetine, sertraline (Zoloft), trazodone, or vilazodone. Taking any of these medicines with an NSAID may cause you to bruise or bleed easily. Ask a doctor or pharmacist if it is safe for you to use ibuprofen if you are also using any of the following drugs: ?? cyclosporine; ?? pemetrexed; ?? lithium; ?? methotrexate; ?? a blood thinner (warfarin, Coumadin, Jantoven); ?? heart or blood pressure medication, including a diuretic or 'water pill'; or ?? steroid medicine (such as prednisone). This list is not complete. Other drugs may interact with ibuprofen, including prescription and uznl-ghx-bvnghev medicines, vitamins, and herbal products. Not all possible interactions are listed in this medication guide. Where can I get more information? Your pharmacist can provide more information about ibuprofen. Remember, keep this and all other medicines out of the reach of children, never share your medicines with others, and use this medication only for the indication prescribed. Every effort has been made to ensure that the information provided by [employer]. ('[employer]) is accurate, up-to-date, and complete, but no guarantee is made to that effect. Drug information contained herein may be time sensitive. [employer] information has been compiled for use by healthcare practitioners and consumers in the [place] and therefore [employer] does not warrant that uses outside of the [place] are appropriate, unless specifically indicated otherwise. [employer] drug information does not endorse drugs, diagnose patients or recommend therapy. [employer] drug information is an informational resource designed to assist licensed healthcare practitioners in caring for their patients and/or to serve consumers viewing this service as a supplement to, and not a substitute for, the expertise, skill, knowledge and judgment of healthcare practitioners. The absence of a warning for a given drug or drug combination in no way should be construed to indicate that the drug or drug combination is safe, effective or appropriate for any given patient. [employer] does not assume any responsibility for any aspect of healthcare administered with the aid of information [employer] provides. The information contained herein is not intended to cover all possible uses, directions, precautions, warnings, drug interactions, allergic reactions, or adverse effects. If you have questions about the drugs you are taking, check with your doctor, nurse or pharmacist. Copyright 1186-6587 [employer]. Version: 19.01. Revision Date: 10/31/2018. acetaminophen and oxycodone (a SEET a MIN oh fen and OX i KOE done) Endocet 10/325, Endocet 2.5/325, Endocet 5/325, Endocet 7.5/325, Nalocet, Percocet 10/325, Percocet 2.5/325, Percocet 5/325, Percocet 7.5/325, Primalev, Primlev, Roxicet, Xartemis XR What is the most important information I should know about acetaminophen and oxycodone? MISUSE OF OPIOID MEDICINE CAN CAUSE ADDICTION, OVERDOSE, OR . Keep the medication in a place where others cannot get to it. An overdose of acetaminophen can damage your liver or cause . Call your doctor at once if you have pain in your upper stomach, loss of appetite, dark urine, or jaundice (yellowing of your skin or eyes). Taking opioid medicine during may cause life-threatening withdrawal symptoms in the . Fatal side effects can occur if you use opioid medicine with alcohol, or with other drugs that cause drowsiness or slow your breathing. Stop taking this medicine and call your doctor right away if you have skin redness or a rash that spreads and causes blistering and peeling. What is acetaminophen and oxycodone? Oxycodone is an opioid pain medication, sometimes called a narcotic. Acetaminophen is a less potent pain reliever that increases the effects of oxycodone. Acetaminophen and oxycodone is a combination medicine used to relieve moderate to severe pain. Acetaminophen and oxycodone may also be used for purposes not listed in this medication guide. What should I discuss with my healthcare provider before taking acetaminophen and oxycodone? You should not use this medicine if you are allergic to acetaminophen or oxycodone, or if you have: ?? severe asthma or breathing problems; or ?? a blockage in your stomach or intestines. Tell your doctor if you have ever had: ?? liver disease; ?? a drug or alcohol addiction; ?? kidney disease; ?? a head injury or seizures; ?? urination problems; or ?? problems with your thyroid, pancreas, or gallbladder. If you use opioid medicine while you are , your baby could become dependent on the drug. This can cause life-threatening withdrawal symptoms in the baby after it is born. Babies born dependent on opioids may need medical treatment for several weeks. Do not breast-feed. This medicine can pass into breast milk and cause drowsiness, breathing problems, or in a nursing baby. How should I take acetaminophen and oxycodone? Follow all directions on your prescription label. Never take this medicine in larger amounts, or for longer than prescribed. An overdose can damage your liver or cause . Tell your doctor if the medicine seems to stop working as well in relieving your pain. Never share this medicine with another person, especially someone with a history of drug abuse or addiction. MISUSE CAN CAUSE ADDICTION, OVERDOSE, OR . Keep the medicine in a place where others cannot get to it. Selling or giving away acetaminophen and oxycodone is against the law. Measure liquid medicine carefully. Use the dosing syringe provided, or use a medicine dose-measuring device (not a kitchen spoon). If you need surgery or medical tests, tell the doctor ahead of time that you are using this medicine. You should not stop using this medicine suddenly. Follow your doctor's instructions about tapering your dose. Store at room temperature away from moisture and heat. Keep track of your medicine. You should be aware if anyone is using it improperly or without a prescription. Do not keep leftover opioid medication. Just one dose can cause in someone using this medicine accidentally or improperly. Ask your pharmacist where to locate a drug take-back disposal program. If there is no take-back program, flush the unused medicine down the toilet. What happens if I miss a dose? Since this medicine is used for pain, you are not likely to miss a dose. Skip any missed dose if it is almost time for your next dose. Do not use two doses at one time. What happens if I overdose? Seek emergency medical attention or call the Poison Help line at . An overdose of acetaminophen and oxycodone can be fatal. The first signs of an acetaminophen overdose include loss of appetite, nausea, vomiting, stomach pain, sweating, and confusion or weakness. Later symptoms may include pain in your upper stomach, dark urine, and yellowing of your skin or the whites of your eyes. Overdose can also cause severe muscle weakness, pinpoint pupils, very slow breathing, extreme drowsiness, or coma. What should I avoid while taking acetaminophen and oxycodone? Avoid driving or operating machinery until you know how this medicine will affect you. Dizziness or drowsiness can cause falls, accidents, or severe injuries. Do not drink alcohol. Dangerous side effects or could occur. Ask a doctor or pharmacist before using any other medicine that may contain acetaminophen (sometimes abbreviated as APAP). Taking certain medications together can lead to a fatal overdose. What are the possible side effects of acetaminophen and oxycodone? Get emergency medical help if you have signs of an allergic reaction: hives; difficulty breathing; swelling of your face, lips, tongue, or throat. Opioid medicine can slow or stop your breathing, and may occur. A person caring for you should seek emergency medical attention if you have slow breathing with long pauses, blue colored lips, or if you are hard to wake up. In rare cases, acetaminophen may cause a severe skin reaction that can be fatal. This could occur even if you have taken acetaminophen in the past and had no reaction. Stop taking this medicine and call your doctor right away if you have skin redness or a rash that spreads and causes blistering and peeling. Call your doctor at once if you have: ?? noisy breathing, sighing, shallow breathing; ?? a light-headed feeling, like you might pass out; ?? weakness, tiredness, fever, unusual bruising or bleeding; ?? confusion, unusual thoughts or behavior; ?? problems with urination; ?? liver problems--nausea, upper stomach pain, tiredness, loss of appetite, dark urine, amara-colored stools, jaundice (yellowing of the skin or eyes); or ?? low cortisol levels-- nausea, vomiting, loss of appetite, dizziness, worsening tiredness or weakness. Seek medical attention right away if you have symptoms of serotonin syndrome, such as: agitation, hallucinations, fever, sweating, shivering, fast heart rate, muscle stiffness, twitching, loss of coordination, nausea, vomiting, or diarrhea. Serious side effects may be more likely in older adults and those who are overweight, malnourished, or debilitated. Long-term use of opioid medication may affect fertility (ability to have children) in men or women. It is not known whether opioid effects on fertility are permanent. Common side effects include: ?? dizziness, drowsiness, feeling tired; ?? feelings of extreme happiness or sadness; ?? nausea, vomiting, stomach pain; ?? constipation; or ?? headache. This is not a complete list of side effects and others may occur. Call your doctor for medical advice about side effects. You may report side effects to FDA at 9-125-QVB-3613. What other drugs will affect acetaminophen and oxycodone? You may have breathing problems or withdrawal symptoms if you start or stop taking certain other medicines. Tell your doctor if you also use an antibiotic, antifungal medication, heart or blood pressure medication, seizure medication, or medicine to treat HIV or hepatitis C. Opioid medication can interact with many other drugs and cause dangerous side effects or . Be sure your doctor knows if you also use: ?? cold or allergy medicines, bronchodilator asthma/COPD medication, or a diuretic ('water pill'); ?? medicines for motion sickness, irritable bowel syndrome, or overactive bladder; ?? other narcotic medications--opioid pain medicine or prescription cough medicine; ?? a sedative like Valium--diazepam, alprazolam, lorazepam, Xanax, Klonopin, Versed, and others; ?? drugs that make you sleepy or slow your breathing--a sleeping pill, muscle relaxer, medicine to treat mood disorders or mental illness; ?? drugs that affect serotonin levels in your body--a stimulant, or medicine for depression, Parkinson's disease, migraine headaches, serious infections, or nausea and vomiting. This list is not complete. Other drugs may affect acetaminophen and oxycodone, including prescription and eblu-jnx-[id number] medicines, vitamins, and herbal products. Not all possible interactions are listed here. Where can I get more information? Your doctor or pharmacist can provide more information about acetaminophen and oxycodone. Remember, keep this and all other medicines out of the reach of children, never share your medicines with others, and use this medication only for the indication prescribed. Every effort has been made to ensure that the information provided by [employer] ('[employer]') is accurate, up-to-date, and complete, but no guarantee is made to that effect. Drug information contained herein may be time sensitive. [employer] information has been compiled for use by healthcare practitioners and consumers in the [place] and therefore [employer] does not warrant that uses outside of the [place] are appropriate, unless specifically indicated otherwise. [employer] drug information does not endorse drugs, diagnose patients or recommend therapy. [employer] drug information is an informational resource designed to assist licensed healthcare practitioners in caring for their patients and/or to serve consumers viewing this service as a supplement to, and not a substitute for, the expertise, skill, knowledge and judgment of healthcare practitioners. The absence of a warning for a given drug or drug combination in no way should be construed to indicate that the drug or drug combination is safe, effective or appropriate for any given patient. [employer] does not assume any responsibility for any aspect of healthcare administered with the aid of information [facility] provides. The information contained herein is not intended to cover all possible uses, directions, precautions, warnings, drug interactions, allergic reactions, or adverse effects. If you have questions about the drugs you are taking, check with your doctor, nurse or pharmacist. Copyright 4650-5860 [employer]. Version: 18.02. Revision Date: 02/15/2018. Emergency Awareness and Preventative Care STROKE is [...] Assistance with quitting is available by contacting 1-489-WXEKBee [employer]. This is a free resource providing counseling, [...] and how to prevent infections, visit www.cdc.gov/sepsis. Test Results Laboratory or Other Results This Visit (last charted value for your 04/05/2019 visit) Hematology 04/06/2019 4:48 AM WBC: 9.1 K/uL -- Normal range between ( 3.9 and 10.0 ) RBC: 3.65 Million/uL -- Normal range between ( 3.93 and 5.22 ) Hct: 28.0 % -- Normal range between ( 34.1 and 44.9 ) Hgb: 9.0 Gram/dL -- Normal range between ( 11.2 and 15.7 ) Platelet Count: 147 K/uL -- Normal range between ( 163 and 369 ) MCH: 24.7 pg -- Normal range between ( 25.6 and 32.2 ) MCHC: 32.1 Gram/dL -- Normal range between ( 32.3 and 36.5 ) MCV: 76.7 fL -- Normal range between ( 79.0 and 94.8 ) Slide Review: No RDW: 18.3 % -- Normal range between ( 11.6 and 14.4 ) MPV: 10.6 fL -- Normal range between ( 9.4 and 12.4 ) 04/05/2019 10:51 AM Eos %: 1.3 % -- Normal range between ( 1.0 and 7.0 ) Gilliam #: 0.74 K/uL -- Normal range between ( 0.24 and 0.82 ) Eos #: 0.08 K/uL -- Normal range between ( 0.04 and 0.54 ) Gilliam %: 11.6 % -- Normal range between ( 4.7 and 12.5 ) Baso %: 0.3 % -- Normal range between ( 0.0 and 1.0 ) Baso #: 0.02 K/uL -- Normal range between ( 0.01 and 0.08 ) Neut %: 61.1 % -- Normal range between ( 34.0 and 71.0 ) Neut #: 3.89 K/uL -- Normal range between ( 1.56 and 6.13 ) Lymph %: 25.2 % -- Normal range between ( 19.3 and 53.0 ) Lymph #: 1.60 K/uL -- Normal range between ( 1.18 and 3.74 ) IG#: 3.89 x10(3)/uL IG%: 0.5 % -- Normal range between ( 0 and 1 ) nRBC: ---- -- Normal range between ( 1 and 5 ) Blood Bank 04/05/2019 1:55 PM ABO/Rh Repeat: A POS 04/05/2019 10:51 AM ABO/Rh: A POS Antibody Screen (Tube): Negative ABSC Toxicology 04/05/2019 10:51 AM UDS Amp: Negative UDS Ana: Negative UDS Benzo: Negative UDS Nils: Negative UDS Meth: Negative UDS Opi: Negative UDS Oxy: Negative UDS PCP: Negative UDS TCA: Negative UDS THC: Negative Electronically signed by [facility] Conversion Mixing Supervisor Cerner at 07/08/2022 2:57 PM CDT documented in this encounter Plan of Treatment Not on file documented as of this encounter Visit Diagnoses Not on filedocumented in this encounter
--- OUTSIDE RECORDS SUMMARY | 2024-12-11 10:07 | XMS_ITS | Referral Summary ---
Author Organization [employer] ([place], [place], [place], [place]) Address [address] [place], [place] [id number] Care Team Providers Care Rehabilitation Counsellor Name Role Phone Unavailable Primary Care Provider [...] Date Hema rded Speak language other than Bengali at home Not on file 04/08/2023 Want [...] Orientation Not on file Plan of Treatment Not on file Insurance [employer] [facility] [phone]
--- OUTSIDE RECORDS SUMMARY | 2024-12-11 10:07 | XMS_ITS | Encounter Summary ---
Author Organization [employer] ([place], [place], [place], [place]) Address [address] [place] [address] Care Team Providers Care Machine Tool Dresser Name Role Phone Unavailable Primary Care Provider Unavailabl e Encounter Details Date Type Department Care Team (Late st Contact Info) Description 04/05/2019 Transcribed Document [facility] [place] [facility] [place] [address] ProviderTamie MD [address] [place] [address] Social History Tobacco Use Types Packs/Day Years Used Date Smoking Tobacco: Never Assessed Comments Unknown Sex and Gender Information Value Date Recorded Sex Assigned at Not on file Legal Sex Female 6:35 PM CDT Gender Identity Not on file Sexual Orientation Not on file documented as of this encounter Miscellaneous Notes * Cerner Conversion Note - Tamie ProviderMD - 04/05/2019 10:45 AM DIE CASTING MACHINE SETTER Admission Data, OB Entered On: 04/05/2019 10:46 EST Performed On: 04/05/2019 10:45 EST by CYNTHIA STEINER RN Advance Directive Patient has Advance Directive *Q : No, patient refuses Advance Directive information CYNTHIA STEINER RN - 04/05/2019 10:45 EST Height and Weight Height Source : Stated Height Entry Format : [place] Height, Feet : 5 ft(Converted to: 152 cm, 60 Inch) Clinical Height : 157.48 cm Height, Inches : 2 Inch(Converted to: 0 ft 2 Inch, 5.08 cm) Weight Source : Standing scale Weight Entry Format : [place] Weight, Pounds : 171 lb Clinical Dosing Weight : 77.73 kg Body Surface Area (BSA) : 1.79 m2 Body Mass Index : 31.3 kg/m2 (HI) [place] Body Weight (IBW) : 49.73 kg CYNTHIA STEINER RN - 04/05/2019 10:45 EST Health Histories Smoking Status : Former smoker, quit more than 30 days ago Smokeless Tobacco Status : Never CYNTHIA STEINER RN - 04/05/2019 10:45 EST Social History (As Of: 04/05/2019 10:46:29 EST) Tobacco: Never (less than 100 in lifetime) Smoking Status. (Last Updated: 08/21/2018 14:39:34 EDT by SUKH DELGADO RN) Gestational Age Gestational Age Person Gestational Age At : 39 weeks 1 days Method : Comment : Tetanus Immunization Status Previous Tetanus Immunizations : No qualifying data available. Tetanus Immunization : Less than 5 years CYNTHIA STEINER RN - 04/05/2019 10:45 EST Influenza Vaccine Asmt, Adult Previous Vaccines from Immunization Schedule : No qualifying data available. Influenza Immunization, Current Season : Yes CYNTHIA STEINER RN - 04/05/2019 10:45 EST Pneumococcal Vaccine Previous Vaccines from Immunization Schedule : No qualifying data available. Pneumonia Immunization Received : No Pneumococcal Risk Assessment < Age 65 : None CYNTHIA STEINER RN - 04/05/2019 10:45 EST Order Details Transport Mode Order Detail : Ambulatory Isolation Precautions Order Detail : Standard Precautions Order Detail : 1 IV Order Detail : 0 Oxygen Order Detail : 0 Nurse Collect Order Detail : 1 Lift/Transfer : Independent Central Line Order Detail : No Room Service : Not Appropriate Arterial Line : No CYNTHIA STEINER RN - 04/05/2019 10:45 EST Vital Measurements Temperature Source : Oral Temperature Mode : Fahrenheit Temperature, Fahrenheit : 97.8 Deg F Clinical Temperature, C : 36.6 Deg C Pulse Method : Non-Invasive BP Device Pulse Source : Brachial, Left Peripheral Pulse Rate : 109 bpm (HI) Pulse Rhythm : Regular Respiratory Rate : 16 Breaths/Min Blood Pressure Location : Arm, left upper Blood Pressure Source : Non-Invasive BP Device Blood Pressure Position : Sitting Systolic Blood Pressure : 110 mmHg Diastolic Blood Pressure : 76 mmHg CYNTHIA STEINER RN - 04/05/2019 10:45 EST Infectious Disease History Physical contact outside [place] in the last 30 days : No Infectious Disease History : None Tuberculosis Symptoms : None CYNTHIA STEINER RN - 04/05/2019 10:45 EST [place] Suicide Severity Rating Scale (C-SSRS) CSSRS Past Month Wish to be : No CSSRS Past Month Suicidal Thoughts : No CSSRS Lifetime Suicide Behavior : No Suicide Severity Rating Score : 0 Suicide Severity Rating : No Additional Care Required at this time CYNTHIA STEINER RN - 04/05/2019 10:45 EST documented in this encounter Plan of Treatment Not on file documented as of this encounter Visit Diagnoses Not on filedocumented in this encounter
--- OUTSIDE RECORDS SUMMARY | 2024-12-11 10:07 | XMS_ITS | Encounter Summary ---
Author Organization [employer] ([place], [place], [place], [place]) Address [address] [place] [address] Care Team Providers Care Bacteriology Research Assistant Name Role Phone Unavailable Primary Care Provider Unavailabl e Encounter Details Date Type Department Care Team (Late st Contact Info) Description 04/08/2019 Transcribed Document [facility] [place] [facility] [place] [address] ProviderTamie MD [address] [place] [address] Social History Tobacco Use Types Packs/Day Years Used Date Smoking Tobacco: Never Assessed Comments Unknown Sex and Gender Information Value Date Recorded Sex Assigned at Not on file Legal Sex Female 6:35 PM CDT Gender Identity Not on file Sexual Orientation Not on file documented as of this encounter Miscellaneous Notes * Cerner Conversion Note - Tamie ProviderMD - 04/08/2019 11:35 AM ASSISTANT MANAGER PT Patient: GALA BALTAZAR Age: 23 Years Sex: Female : 1995 Admit Date 04/05/2019 09:55 Discharge Date No Discharge Date on Record Primary Care Provider AIDA LEVINE PRIM DR Discharge Diagnosis Single live 04/06/2019 Z37.0 ICD-10-CM Breast feeding status of mother 04/06/2019 Z39.1 ICD-10-CM Vacuum-assisted delivery, delivered, current hospitalization 04/06/2019 O66.5 ICD-10-CM delivery delivered 04/05/2019 O82 ICD-10-CM Procedures delivery and care Hospital Course benign subj:pain well controlled, bleeding minimal, going well. ready to go home Vital Signs Oxygen Settings (Last) No qualifying data available. vss,afebrile Physical Exam gen:nad breasts:nontender, intact heart:reg rate lungs:unlabored abd:fundus firm, nl lochia ext:no edema or calf pain Discharge Disposition No Disposition on Record home Discharge Follow Up No Follow Up Appointments on Record f/u 2 weeks Discharge Medications (3) Active Classic , Oral, Daily ferrous fumarate 324 mg (106 mg elemental iron) oral tablet , Oral, Daily ProAir HFA 90 mcg/inh inhalation aerosol , Inhalation, QID Code Status Start: 04/05/19 13:36:00 EST, Full Code, Continuous Order Consulting Physicians RAJAN LOUIS MD-ANS Current Diet Order Diet, Adult - Ordered -- Start: 04/05/19 17:45:00 EST, Regular Diet, Isolation: Standard Precautions Pending Labs No Labs on Record Electronically signed by Katlyn [facility] Conversion Cruller Maker Machine Cerner at 07/08/2022 2:56 PM CDT documented in this encounter Plan of Treatment Not on file documented as of this encounter Visit Diagnoses Not on filedocumented in this encounter
--- OUTSIDE RECORDS SUMMARY | 2024-12-11 10:07 | XMS_ITS | Encounter Summary ---
Author Organization [employer] ([place], [place], [place], [place]) Address [address] [place] [address] Care Team Providers Care Floral Arranger Name Role Phone Unavailable Primary Care Provider Unavailabl e Encounter Details Date Type Department Care Team (Late st Contact Info) Description 04/08/2019 Transcribed Document [facility] [place] Family Medicine [address] [place] [address] ProviderTamie MD [facility] [place], [place] [id number] Social History Tobacco Use Types Packs/Day Years Used Date Smoking Tobacco: Never Assessed Comments Unknown Sex and Gender Information Value Date Recorded Sex Assigned at Not on file Legal Sex Female 6:35 PM CDT Gender Identity Not on file Sexual Orientation Not on file documented as of this encounter Miscellaneous Notes * Cerner Conversion Note - Historical ProviderMD - 04/08/2019 2:15 PM STONEWORKING SANDER Nursing Discharge Summary Entered On: 04/08/2019 15:30 EST Performed On: 04/08/2019 14:15 EST by KING MODI RN Discharge Documentation Discharge Date/Time : 04/08/2019 14:15 EST Transporter Signature : KING MODI RN Patient Disposition, General : Discharge Discharge To : Home with ambulatory/outpatient follow-up Mode Of Departure, General Discharge : Private vehicle, Wheelchair Accompanied By, Discharge : Spouse Personal Belongings With Patient : Yes Prescriptions Given to Patient : Yes Discharge Instructions Reviewed With, Opportunity For Questions Given : Patient Patient Education Completed : Yes Number of Prescriptions Given : 2 Teaching Method : Explanation, Printed materials Teaching Evaluation : Verbalizes understanding KING MODI RN - 04/08/2019 15:28 EST Electronically signed by Katlyn [facility] Conversion Rapier Insertion Loom Fixer Cerner at 07/08/2022 2:52 PM CDT documented in this encounter Plan of Treatment Not on file documented as of this encounter Visit Diagnoses Not on filedocumented in this encounter
--- OUTSIDE RECORDS SUMMARY | 2024-12-11 10:07 | XMS_ITS | Encounter Summary ---
Author Organization [employer] ([place], [place], [place], [place]) Address [address] [place] [address] Care Team Providers Care Shaker Washer Name Role Phone Unavailable Primary Care Provider Unavailabl e Encounter Details Date Type Department Care Team (Late st Contact Info) Description 04/05/2019 Transcribed Document [facility] Family Medicine [address] [place] [address] ProviderTamie MD [address] [place], [place] [id number] Social History Tobacco Use Types Packs/Day Years Used Date Smoking Tobacco: Never Assessed Comments Unknown Sex and Gender Information Value Date Recorded Sex Assigned at Not on file Legal Sex Female 6:35 PM CDT Gender Identity Not on file Sexual Orientation Not on file documented as of this encounter Miscellaneous Notes * Cerner Conversion Note - Historical ProviderMD - 04/05/2019 3:38 PM NEEDLEMAKER UM Authorization Entered On: 04/05/2019 15:38 EST Performed On: 04/05/2019 15:38 EST by Lucila Nash Rn-Utilization Review Primary Insurance Authorization Authorization and Policy Numbers : Insurance 1 Health Plan: [employer] Policy Number: [id number] Authorization Number: Insurance Primary Name : [employer] Policy Number: [id number] Authorization Status-Primary : Notification only Authorized Service Begin Date-Primary : 04/05/2019 EST Authorization Comments-Primary : Delivery summary faxed to [employer] Historical Authorization Comments-Primary : No Authorization Comments Found Lucila Nash Rn-Utilization Review - 04/05/2019 15:38 EST documented in this encounter Plan of Treatment Not on file documented as of this encounter Visit Diagnoses Not on filedocumented in this encounter
--- NOTE | 2024-12-11 10:12 | XR_ITS ---
FINAL REPORT CLINICAL HISTORY: SOA, CP, heart palpitations , heartburn, nausea since last tuesday COMPARISON: 03/30/2018 FINDINGS: A portable view of the chest was obtained. Cardiac and mediastinal silhouettes are within normal limits. The lungs are clear. There is no pleural effusion or pneumothorax. IMPRESSION: No acute process on this portable exam. Reviewed, Interpreted and Dictated by Estephanie Kearney MD Transcribed by Anne Parmar Authenticated and [facility]
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
[2024-12-11 10:17] LABS: Hematocrit 37.1 % (37.0-47.0); Hemoglobin 12.1 g/dL (12.2-16.2); Immature Granulocytes % 0.2 %; Mean Corpuscular HGB Conc 32.6 g/dL (31.8-35.4); Mean Corpuscular Hemoglobin 26.2 pg (27.0-31.2); Mean Corpuscular Volume 80.3 fl (81-99); Nucleated Red Blood Cells % 0 %; Platelet Count 241 K/mm3 (142-424); Red Blood Count 4.62 M/mm3 (4.20-5.40); Red Cell Distribution Width-SD 36.6 fL; White Blood Count 5.4 K/mm3 (4.8-10.8)
[2024-12-11 10:20] VITALS: BP 108/73; PULSE 79; O2SAT 99
[2024-12-11 10:21] LABS: Albumin Level 4.6 g/dl (3.5-5.0); Chloride 104 mmol/L (98-107); Potassium 4.0 mmoL/L (3.5-5.1); Sodium 139 mmol/L (136-145)
[2024-12-11 10:23] LABS: INR 0.97 (0.9-1.1); Prothrombin Time 10.8 seconds (10.1-12.5)
[2024-12-11 10:24] LABS: Alanine Aminotransferase 27 U/L (12-78); Albumin/Globulin Ratio 1.8 (1.1-1.8); Alkaline Phosphatase 53 U/L (38-126); Anion Gap 13.0 mEq/L (5-15); Aspartate Amino Transferase 31 U/L (14-36); Bilirubin,Total 0.5 mg/dl (0.2-1.3); Blood Urea Nitrogen 8 mg/dl (7-17); Calcium 9.4 mg/dl (8.4-10.2); Carbon Dioxide 26 mmol/L (22.0-30.0); Creatinine Clearance Estimated 178 mL/min (50-200); Creatinine,Serum 0.50 mg/dl (0.52-1.04); Estimated Glomerular Filt Rate 146 ml/min (>60); GFR (African American) 177 ML/MIN (>60); Globulin 2.6 g/dL (1.3-3.2); Glucose 130 mg/dl (74-100); Total Protein,Serum 7.2 g/dl (6.3-8.2)
[2024-12-11 10:25] LABS: Magnesium 1.9 mg/dl (1.6-2.3)
[2024-12-11] MEDS: BELLADONNA ALKALOIDS 60 ML ML PO (10:27)
[2024-12-11 10:35] LABS: NT Pro Brain Natriuretic Pep. < 20.0 pg/mL (0-125)
[2024-12-11 10:40] VITALS: BP 103/70; PULSE 78; RESP 12; O2SAT 99
[2024-12-11 10:42] LABS: T4 (Thyroxine) 11.2 ug/dl (5.53-11.0)
[2024-12-11 10:52] LABS: D-Dimer 0.38 ug/mL (0.0-0.5)
[2024-12-11 10:55] LABS: Thyroid Stimulating Hormone 0.59 uIU/mL (0.465-4.68)
[2024-12-11 11:00] VITALS: BP 106/73; PULSE 75; O2SAT 98
[2024-12-11 11:03] LABS: Troponin I < 0.01 ng/ml (0.00-0.034)
[2024-12-11 11:04] LABS: HCG Qualitative, Serum Negative (Negative)
--- NOTE | 2024-12-11 11:07 | PC.NURSE ---
XR AT BEDSIDE
[2024-12-11 11:35] VITALS: BP 103/66; PULSE 85; RESP 13; TEMP 36.7; O2SAT 100
[2024-12-11 11:35] LABS: Hepatitis C Ab Qual. W/ RFX NEGATIVE (Negative)
== END 2024-12-11 11:38 | disposition home or self-care (01) ==
PROVIDERS: Physician Assistant; Emergency Provider Student in an Organized Health Care Education/Training Program; PCP Nurse Practitioner
DX: R00.2 Palpitations (principal); R06.02 Shortness of breath; K21.9 Gastro-esophageal reflux disease without esophagitis
CPT/HCPCS: 71045; 80053; 83735; 83880; 84436; 84443; 84484; 84703; 85025; 85378; 85610; 86803; 87389; 93005; 99285

== ENCOUNTER 2024-12-28 09:50 | Outpatient (CLI) | payer MEDICAID, SELFPAY ==
[2024-12-28 14:57] LABS: Coronavirus 19, PCR Not Detected (NotDetected); Influenza A, PCR Not Detected (NotDetected); Influenza B, PCR Not Detected (NotDetected)
--- OUTSIDE RECORDS SUMMARY | 2024-12-31 09:55 | XMS_ITS | Encounter Summary ---
Author Organization [employer] ([place], [place], [place], [place]) Address [address] [place] [address] Care Team Providers Care Restaurant Expeditor Name Role Phone Unavailable Primary Care Provider Unavailabl e Encounter Details Date Type Department Care Team (Late st Contact Info) Description 04/09/2019 Transcribed Document [facility] [place] [address] [place] [address] ProviderTamie MD [address] [place] [address] Social History Tobacco Use Types [...] - Tamie ProviderMD - 04/09/2019 8:59 AM ADMINISTRATION ASSISTANT UM Authorization Entered On: 04/09/2019 8:59 EST Performed On: 04/09/2019 8:59 EST by FLORES LOVETT RN Primary Insurance Authorization Authorization and Policy Numbers : Insurance 1 Health Plan: [employer] Policy Number: [id number] Authorization Number: Insurance Primary Name : [employer] Policy Number: [id number] Authorization Status-Primary : Denied Authorized Service Begin [...] was not obtained. (scheduled ) Laquita at [facility] will issue an administrative denial (Lucila Nash, Sherri-Utilization Review 04/06/2019 14:54) Comment 4: Delivery summary faxed to [facility] (Lucila Nash, Sherri-Utilization Review 04/05/2019 15:38) FLORES LOVETT RN - 04/09/2019 8:59 EST documented in this encounter Plan of Treatment Not on file documented as of this encounter Visit Diagnoses Not on filedocumented in this encounter
--- OUTSIDE RECORDS SUMMARY | 2024-12-31 09:55 | XMS_ITS | Encounter Summary ---
Author Organization [employer] ([place], [place], [place], [place]) Address [address] [place] [address] Care Team Providers Care Senior Marketing Engineer Name Role Phone Unavailable Primary Care Provider Unavailabl e Encounter Details Date Type Department Care Team (Late st Contact Info) Description 04/08/2019 Transcribed Document [facility] [place] [facility] [place] [address] ProviderTamie MD [facility] [place] [address] Social History Tobacco Use Types [...] - Tamie ProviderMD - 04/08/2019 11:49 AM 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 Take mvue-ltq-jcabvee and prescription medicines only as told by [...] 07/02/2005 Document Revised: 03/08/2017 Document Reviewed: 03/08/2017 [employer] Interactive Patient Education ?? 2019 [employer]. Choosing to breastfeed is one of the [...] are also at lower risk for sudden infant syndrome (SIDS). ??? Nutrients in breast milk are better able to meet your baby???s needs compared to formula. ??? Breast milk [...] smacking lips, cooing, sighing, or squeaking. ??? Fwek-xy-ioeie movements and sucking on fingers or hands. [...] able to be present during feedings. Your management consultant can help you find a method [...] contact your health care provider or a management consultant. Overall health care recommendations while ??? [...] provider before taking any medicines. These include ukgs-cue-bpamhoq and prescription medicines as well as vitamins [...] Talk with your health care provider or management consultant if you have questions or you face problems as you breastfeed. This information is not intended to replace advice given to you by your health care provider. Make sure you discuss any questions you have with your health care provider. Document Released: 03/07/2006 Document Revised: 04/08/2017 Document Reviewed: 04/08/2017 [employer] Interactive Patient Education ?? 2019 [employer] Delivery, Care After Refer to this [...] and water are not available, use hand split and drum room supervisor. ? If you have a dressing, change [...] until your incision heals. Medicines ??? Take crbp-uju-sjwxuir and prescription medicines only as told by [...] 11/27/2002 Document Revised: 04/09/2017 Document Reviewed: 02/09/2016 [employer] Interactive Patient Education ?? 2018 [employer]. ibuprofen (EYE bue PROE fen) Advil, Genpril, IBU, Midol IB, Motrin IB, Proprinal, Smart Sense Children's Ibuprofen What is the most important information I should know about ibuprofen? Ibuprofen can increase your risk of fatal heart attack or stroke, especially if you use it intermission coordinator or take high doses, or if you [...] or stroke, especially if you use it fdc or take high doses, or if you [...] may report side effects to FDA at 5-109-WYE-9048. What other drugs will affect ibuprofen? Ask [...] may interact with ibuprofen, including prescription and rifa-fwn-pcijqfh medicines, vitamins, and herbal products. Not all [...] to ensure that the information provided by [employer]. ('[employer]') is accurate, up-to-date, and complete, but no guarantee is made to that effect. Drug information contained herein may be time sensitive. [employer] information has been compiled for use by healthcare practitioners and consumers in the [place] and therefore [employer] does not warrant that uses outside of the [place] are appropriate, unless specifically indicated otherwise. [employer] drug information does not endorse drugs, diagnose patients or recommend therapy. [employer] drug information is an informational resource designed [...] effective or appropriate for any given patient. [employer] does not assume any responsibility for any aspect of healthcare administered with the aid of information [employer] provides. The information contained herein is not intended to cover all possible uses, directions, precautions, warnings, drug interactions, allergic reactions, or adverse effects. If you have questions about the drugs you are taking, check with your doctor, nurse or pharmacist. Copyright 4581-7189 [employer]. Version: 19.01. Revision Date: 10/31/2018. acetaminophen and [...] may report side effects to FDA at 0-380-LDG-2157. What other drugs will affect acetaminophen and [...] affect acetaminophen and oxycodone, including prescription and chxn-lxb-rfwqwan medicines, vitamins, and herbal products. Not all [...] to ensure that the information provided by [employer]. ('[employer]') is accurate, up-to-date, and complete, but no guarantee is made to that effect. Drug information contained herein may be time sensitive. [employer] information has been compiled for use by healthcare practitioners and consumers in the [place] and therefore [employer] does not warrant that uses outside of the [place] are appropriate, unless specifically indicated otherwise. [employer] drug information does not endorse drugs, diagnose patients or recommend therapy. [employer] drug information is an informational resource designed [...] effective or appropriate for any given patient. [employer] does not assume any responsibility for any aspect of healthcare administered with the aid of information [facility] provides. The information contained herein is not intended to cover all possible uses, directions, precautions, warnings, drug interactions, allergic reactions, or adverse effects. If you have questions about the drugs you are taking, check with your doctor, nurse or pharmacist. Copyright 9435-2752 [employer]. Version: 18.02. Revision Date: 02/15/2018. Emergency Awareness [...] Assistance with quitting is available by contacting 9-803-ZCZJunrivalNOW. This is a free resource providing counseling, [...] range between ( 1.0 and 7.0 ) Harvey #: 0.74 K/uL -- Normal range between ( 0.24 and 0.82 ) Eos #: 0.08 K/uL -- Normal range between ( 0.04 and 0.54 ) Harvey %: 11.6 % -- Normal range between [...] Negative UDS THC: Negative Electronically signed by [facility] Conversion Global Marketing Intern Cerner at 07/08/2022 2:57 PM CDT documented in this encounter Plan of Treatment Not on file documented as of this encounter Visit Diagnoses Not on filedocumented in this encounter
--- OUTSIDE RECORDS SUMMARY | 2024-12-31 09:55 | XMS_ITS | Encounter Summary ---
Author Organization [employer] ([place], [place], [place], [place]) Address [address] [place] [address] Care Team Providers Care Food Dehydrator Operator Name Role Phone Unavailable Primary Care Provider Unavailabl e Encounter Details Date Type Department Care Team (Late st Contact Info) Description 05/09/2019 Transcribed Document [facility] [place] [facility] [place] [address] ProviderTamie MD [facility] [place] [address] Social History Tobacco Use Types [...] - Tamie ProviderMD - 05/09/2019 11:22 AM VP SCIENTIFIC UM Authorization Entered On: 05/09/2019 11:25 EST Performed On: 05/09/2019 11:22 EST by KING BECKETT RN-Utilization Review Primary Insurance Authorization Authorization and Policy Numbers : Insurance 1 Health Plan: [employer] Policy Number: [id number] Authorization Number: DENIED- SENT TO APPEALS Insurance Primary Name : [employer] Policy Number: [id number] Authorization Status-Primary : Admit approved Authorization Number-Primary : [id number] Number of Days Authorized-Primary : 3 Day(s) [...] admission has been administratively denied. Spoke with Calile Jamil and informed them the MD office and Hospital would have to file an appeal for this admission. (FLORES LOVETT RN 04/09/2019 08:36) Comment 4: Notification of denial emailed to [facility]ett (Lucila Nash Rn-Utilization Review 04/06/2019 14:56) Comment 5: Per Loulou at Dr Nelson's office, precert was not obtained. (scheduled ) Laquita at [facility] will issue an administrative denial (Lucila Nash Rn-Utilization Review 04/06/2019 14:54) Comment 6: Delivery summary faxed to [facility] (Lucila Nash Rn-Utilization Review 04/05/2019 15:38) KING BECKETT RN-Utilization Review - 05/09/2019 11:22 EST Electronically signed by Emily Potts Conversion Family Resource Management Specialist Cerner at 07/08/2022 3:03 PM CDT documented in this encounter Plan of Treatment Not on file documented as of this encounter Visit Diagnoses Not on filedocumented in this encounter
--- OUTSIDE RECORDS SUMMARY | 2024-12-31 09:55 | XMS_ITS | Clinical Summary ---
Author Organization [facility] Address [address] [place] [address] Care Team Providers Care Quality Process Auditor Name Role Phone RayArlyn MALVIN Primary Care Provider [phone] Social History Tobacco Use Types Packs/Day Years [...] ve Non-Reacti ve 03/31/2017 7:49 PM EST [facility] Blood Venipuncture / Unknown 03/31/2017 4:40 PM EST 03/31/2017 4:40 PM EST Arlyn Bell CNM LAB BLOOD ORDERABLES Final Re sult [facility]
[address] [place] [address], from Last 3 Months or Most Recently Relevant to Health Maintenance Insurance Care Teams Quality Process Auditor Relationship Specialty Start Date End Date Arlyn Bell CNM PCP - General Certified Nurse Concrete Pipe Making Machine Operator 03/31/17
--- OUTSIDE RECORDS SUMMARY | 2024-12-31 09:55 | XMS_ITS | Encounter Summary ---
Author Organization [employer] ([place], [place], [place], [place]) Address [address] [place] [address] Care Team Providers Care Geological Survey Field Assistant Name Role Phone Unavailable Primary Care Provider Unavailabl e Encounter Details Date Type Department Care Team (Late st Contact Info) Description 04/13/2019 Transcribed Document [facility] [place] Family Medicine [address] [place] [address] ProviderTamie MD [address] [place] [address] Social History Tobacco Use Types [...] - Historical ProviderMD - 04/13/2019 11:50 AM DRUPAL PHP DEVELOPER UM Authorization Entered On: 04/13/2019 11:51 EST Performed On: 04/13/2019 11:50 EST by Lucila Nash Rn-Utilization Review Primary Insurance Authorization Authorization and Policy Numbers : Insurance 1 Health Plan: [employer] Policy Number: [id number] Authorization Number: DENIED- SENT TO APPEALS Insurance Primary Name : [employer] Policy Number: [id number] Authorization Status-Primary : Denied Authorized Service Begin [...] not obtained. (scheduled ) Laquita at [facility] will issue an administrative denial (Lucila Nash, Rn-Utilization Review 04/06/2019 14:54) Comment 5: Delivery summary faxed to [facility] (Lucila Nash Rn-Utilization Review 04/05/2019 15:38) Lucila Nash Rn-Utilization Review - 04/13/2019 11:50 EST documented in this encounter Plan of Treatment Not on file documented as of this encounter Visit Diagnoses Not on filedocumented in this encounter
--- OUTSIDE RECORDS SUMMARY | 2024-12-31 09:55 | XMS_ITS | Encounter Summary ---
Author Organization [employer] ([place], [place], [place], [place]) Address [address] [place] [address] Care Team Providers Care Scouring Train Operator Chief Name Role Phone Unavailable Primary Care Provider Unavailabl e Encounter Details Date Type Department Care Team (Late st Contact Info) Description 04/07/2019 Transcribed Document [facility] [place] Family Medicine [facility] [place] [address] ProviderTamie MD [address] [place] [address] Social History Tobacco Use Types Packs/Day Years Used Date Smoking Tobacco: Never Assessed Comments Unknown Sex and Gender Information Value Date Recorded Sex Assigned at Not on file Legal Sex Female 6:35 PM CDT Gender Identity Not on file Sexual Orientation Not on file documented as of this encounter Miscellaneous Notes * [employer]ner Conversion Note - Tamie ProviderMD - 04/07/2019 12:04 PM PICKING MACHINE OPERATOR Patient: GALA BALTAZAR Age: 23 Years Sex: [...] L 28.0 \ Electronically signed by Katlyn, [facility] Conversion Pattern Developer [employer]ner at 07/08/2022 2:58 PM CDT documented in this encounter Plan of Treatment Not on file documented as of this encounter Visit Diagnoses Not on filedocumented in this encounter
--- OUTSIDE RECORDS SUMMARY | 2024-12-31 09:55 | XMS_ITS | Encounter Summary ---
Author Organization [employer] ([place], [place], [place], [place]) Address [address] [place] [address] Care Team Providers Care Warehouse Operations Associate Name Role Phone Unavailable Primary Care Provider Unavailabl e Encounter Details Date Type Department Care Team (Late st Contact Info) Description 04/05/2019 Transcribed Document [facility] [place] [address] [place] [address] ProviderTamie MD [address] [place], [place] [address] Social History Tobacco Use Types Packs/Day Years Used Date Smoking Tobacco: Never Assessed Comments Unknown Sex and Gender Information Value Date Recorded Sex Assigned at Not on file Legal Sex Female 6:35 PM CDT Gender Identity Not on file Sexual Orientation Not on file documented as of this encounter Miscellaneous Notes * Cerner Conversion Note - Historical ProviderMD - 04/05/2019 3:38 PM DUCO POLISHER UM Authorization Entered On: 04/05/2019 15:38 EST Performed On: 04/05/2019 15:38 EST by Lucila Nash Rn-Utilization Review Primary Insurance Authorization Authorization and Policy Numbers : Insurance 1 Health Plan: [employer] Policy Number: [id number] Authorization Number: Insurance Primary Name : [employer] Policy Number: [id number] Authorization Status-Primary : Notification only Authorized Service Begin Date-Primary : 04/05/2019 EST Authorization Comments-Primary : Delivery summary faxed to [employer] Historical Authorization Comments-Primary : No Authorization Comments Found Lucila Nash Rn-Utilization Review - 04/05/2019 15:38 EST Electronically signed by Emily Potts Conversion Automatic Embroidery Machine Tender [employer]ner at 07/08/2022 2:52 PM CDT documented in this encounter Plan of Treatment Not on file documented as of this encounter Visit Diagnoses Not on filedocumented in this encounter
--- OUTSIDE RECORDS SUMMARY | 2024-12-31 09:55 | XMS_ITS | Encounter Summary ---
Author Organization [employer] ([place], [place], [place], [place]) Address [address] [place] [address] Care Team Providers Care Seat Mender Name Role Phone Unavailable Primary Care Provider Unavailabl e Encounter Details Date Type Department Care Team (Late st Contact Info) Description 04/06/2019 Transcribed Document [facility] Family Medicine [facility] [place] [address] ProviderTamie MD [facility] [place] [address] Social History Tobacco Use Types [...] - Tamie ProviderMD - 04/06/2019 2:54 PM DIRECTOR EHS UM Authorization Entered On: 04/06/2019 14:55 EST Performed On: 04/06/2019 14:54 EST by Lucila Nash Rn-Utilization Review Primary Insurance Authorization Authorization and Policy Numbers : Insurance 1 Health Plan: [employer] Policy Number: [id number] Authorization Number: Insurance Primary Name : [employer] [facility] Policy Number: [id number] Authorization Status-Primary : Notification only Authorized Service Begin Date-Primary : 04/05/2019 EST Authorization Comments-Primary : Keagan Jamil at Dr Nelson's office, precert was not obtained. (scheduled ) Laquita at [facility] will issue an administrative denial Historical Authorization Comments-Primary : Comment 1: Delivery summary faxed to [facility] (Lucila Nash Rn-Utilization Review 04/05/2019 15:38) Lucila Nash Rn-Utilization Review - 04/06/2019 14:54 EST documented in this encounter Plan of Treatment Not on file documented as of this encounter Visit Diagnoses Not on filedocumented in this encounter
--- OUTSIDE RECORDS SUMMARY | 2024-12-31 09:55 | XMS_ITS | Encounter Summary ---
Author Organization [employer] ([place], [place], [place], [place]) Address [address] [place] [address] Care Team Providers Care Screen Print Operator Name Role Phone Unavailable Primary Care Provider Unavailabl e Encounter Details Date Type Department Care Team (Late st Contact Info) Description 04/06/2019 Transcribed Document [facility] [place] Family Medicine [facility] [place] [address] ProviderTamie MD [address] [place] [address] Social History Tobacco Use Types [...] - Tamie ProviderMD - 04/06/2019 11:15 AM OTR FLATBED DRIVER Patient: GALA BALTAZAR Age: 23 Years Sex: [...] \ Electronically signed by Katlyn, Emily Conversion Airways Operations Specialist Cerner at 07/08/2022 2:52 PM CDT documented in this encounter Plan of Treatment Not on file documented as of this encounter Visit Diagnoses Not on filedocumented in this encounter
--- OUTSIDE RECORDS SUMMARY | 2024-12-31 09:55 | XMS_ITS | Encounter Summary ---
Author Organization [employer] ([place], [place], [place], [place]) Address [address] [place] [address] Care Team Providers Care Deputy Assessor Name Role Phone Unavailable Primary Care Provider Unavailabl e Encounter Details Date Type Department Care Team (Late st Contact Info) Description 08/21/2018 Transcribed Document [facility] [place] [facility] [place] [address] ProviderTamie MD [facility] [place] [address] Social History Tobacco Use Types [...] Communication Barrier : None Primary Language : Faroese Any Spiritual/Cultural Needs or Requests : No [...] - 08/21/2018 14:38 EDT Electronically signed by [facility] Conversion Securities Teller Cerner at 07/08/2022 2:57 PM CDT documented in this encounter Plan of Treatment Not on file documented as of this encounter Visit Diagnoses Not on filedocumented in this encounter
--- OUTSIDE RECORDS SUMMARY | 2024-12-31 09:55 | XMS_ITS | Referral Summary ---
Author Organization [employer] ([place], [place], [place], [place]) Address [address] [place], [place] [address] Care Team Providers Care Neurologist Name Role Phone Unavailable Primary Care Provider [...] Date Hema rded Speak language other than Citizen [place] at home Not on file 04/08/2023 Want [...] of Treatment Not on file Insurance [employer] [facility]
--- OUTSIDE RECORDS SUMMARY | 2024-12-31 09:55 | XMS_ITS | Encounter Summary ---
Author Organization [employer] ([place], [place], [place], [place]) Address [address] [place] [address] Care Team Providers Care Filleter Name Role Phone Unavailable Primary Care Provider Unavailabl e Encounter Details Date Type Department Care Team (Late st Contact Info) Description 04/23/2019 Transcribed Document [facility] [place] Family Medicine [address] [place] [address] ProviderTamie MD [address] [place] [address] Social History Tobacco Use Types [...] - Tamie ProviderMD - 04/23/2019 8:35 AM TONGSMAN UM Authorization Entered On: 04/23/2019 8:35 EST Performed On: 04/23/2019 8:35 EST by FLORES LOVETT RN Primary Insurance Authorization Authorization and Policy Numbers : Insurance 1 Health Plan: [employer] Policy Number: [id number] Authorization Number: DENIED- SENT TO APPEALS Insurance Primary Name : [employer] Policy Number: [id number] Authorization Status-Primary : Denied Authorized Service Begin [...] was not obtained. (scheduled ) Laquita at [facility] will issue an administrative denial (Lucila Nash, Sherri-Utilization Review 04/06/2019 14:54) Comment 5: Delivery summary faxed to [facility] (Lucila Nash, Sherri-Utilization Review 04/05/2019 15:38) FLORES LOVETT RN - 04/23/2019 8:35 EST documented in this encounter Plan of Treatment Not on file documented as of this encounter Visit Diagnoses Not on filedocumented in this encounter
--- OUTSIDE RECORDS SUMMARY | 2024-12-31 09:55 | XMS_ITS | Encounter Summary ---
Author Organization [employer] ([place], [place], [place], [place]) Address [address] [place] [address] Care Team Providers Care Director Of Strategy & Mobile Name Role Phone Unavailable Primary Care Provider Unavailabl e Encounter Details Date Type Department Care Team (Late st Contact Info) Description 04/07/2019 Transcribed Document [facility] [place] Family Medicine [facility] [place] [address] ProviderTamie MD [address] [place] [address] Social History Tobacco Use Types Packs/Day Years Used Date Smoking Tobacco: Never Assessed Comments Unknown Sex and Gender Information Value Date Recorded Sex Assigned at Not on file Legal Sex Female 6:35 PM CDT Gender Identity Not on file Sexual Orientation Not on file documented as of this encounter Miscellaneous Notes * Cerner Conversion Note - Tamie ProviderMD - 04/07/2019 4:39 PM EXTRUSION OPERATOR Patient: GALA BALTAZAR Age: 23 Years [...] visualization. An Edwin retractor was placed per assembly inspector helper instructions. Vesicouterine peritoneum was grasped with pickup and incised with Metzenbaum scissors. A bladder flap was created digitally. The lower uterine segment was incised in a transverse fashion and hysterotomy was extended superiorly and laterally. The infant was delivered in cephalic presentation with the vacuum atraumatically. Upon delivery, cord was clamped twice and cut. Infant was bulb suctioned and handed to the awaiting NICU/[place] team. Cord blood was obtained and sent [...] go to Recovery in stable condition. The infant went to the nursery in stable condition. Antibiotics were given on-call to the operating room suite. Count was correct x 3. documented in this encounter Plan of Treatment Not on file documented as of this encounter Visit Diagnoses Not on filedocumented in this encounter
--- OUTSIDE RECORDS SUMMARY | 2024-12-31 09:55 | XMS_ITS | Encounter Summary ---
Author Organization [employer] ([place], [place], [place], [place]) Address [address] [place] [address] Care Team Providers Care Stripping Cutter And Winder Name Role Phone Unavailable Primary Care Provider Unavailabl e Encounter Details Date Type Department Care Team (Late st Contact Info) Description 08/21/2018 Transcribed Document [facility] [place] Family Medicine [facility] [place] [address] ProviderTamie MD [facility] [place] [address] Social History Tobacco Use Types [...]
--- OUTSIDE RECORDS SUMMARY | 2024-12-31 09:55 | XMS_ITS | Encounter Summary ---
Author Organization [employer] ([place], [place], [place], [place]) Address [address] [place] [address] Care Team Providers Care Floor Care Specialist Name Role Phone Unavailable Primary Care Provider Unavailabl e Encounter Details Date Type Department Care Team (Late st Contact Info) Description 04/06/2019 Transcribed Document [facility] [place] Family Medicine [address] [place] [address] ProviderTamie MD [address] [place] [address] Social History Tobacco Use Types [...] - Tamie ProviderMD - 04/06/2019 6:00 PM VAULT MANAGER Pain Assessment Entered On: 04/06/2019 17:50 EST Performed On: 04/06/2019 18:05 EST by JACKIE HILL RN Intervention Information: ibuprofen Performed by JACKIE HILL RN on 04/06/2019 17:05:00 EST ibuprofen,600mg Oral Pain Assessment Pain Assessment : Follow-up assessment Pain Intervention, Drug : Medicated Pain Improved by Intervention : Yes JACKIE HILL RN - 04/06/2019 17:50 EST Electronically signed by Katlyn [facility] Pharmacy Director Cerner at 07/08/2022 2:44 PM CDT documented in this encounter Plan of Treatment Not on file documented as of this encounter Visit Diagnoses Not on filedocumented in this encounter
--- OUTSIDE RECORDS SUMMARY | 2024-12-31 09:55 | XMS_ITS | Encounter Summary ---
Author Organization [employer] ([place], [place], [place]) Address [address] [place] [address] Care Team Providers Care Cra Officer Name Role Phone Unavailable Primary Care Provider Unavailabl e Encounter Details Date Type Department Care Team (Late st Contact Info) Description 08/21/2018 Transcribed Document [facility] [place] [facility] [place] [address] ProviderTamie MD [facility] [place] [address] Social History Tobacco Use Types [...] On: 08/21/2018 16:42 EDT by SUKH DELGADO community living specialist Process Patient Disposition : Discharge Personal Belongings With Patient : Yes Patient Education Completed : Yes Teaching Evaluation : Verbalizes understanding Education Comment : pt [facility] home at 16[facility] IV Discontinued : Yes Nursing Documentation Completed [...] 08/21/2018 16:42 EDT Electronically signed by Katlyn [facility] Conversion Burrer Marker Axle Cerandrew at 07/08/2022 2:48 PM CDT documented in this encounter Plan of Treatment Not on file documented as of this encounter Visit Diagnoses Not on filedocumented in this encounter
--- OUTSIDE RECORDS SUMMARY | 2024-12-31 09:55 | XMS_ITS | Encounter Summary ---
Author Organization [employer] ([place], [place], [place], [place]) Address [address] [place] [address] Care Team Providers Care Automatic Fabric Cutter Name Role Phone Unavailable Primary Care Provider Unavailabl e Encounter Details Date Type Department Care Team (Late st Contact Info) Description 04/08/2019 Transcribed Document [facility] [place] Family Medicine [facility] [address] ProviderTamie MD [address] [place] [address] Social History Tobacco Use Types Packs/Day Years Used Date Smoking Tobacco: Never Assessed Comments Unknown Sex and Gender Information Value Date Recorded Sex Assigned at Not on file Legal Sex Female 6:35 PM CDT Gender Identity Not on file Sexual Orientation Not on file documented as of this encounter Miscellaneous Notes * [employer]ner Conversion Note - Tamie ProviderMD - 04/08/2019 11:35 AM CHIEF CLINICAL DIETITIAN Patient: GALA BALTAZAR Age: 23 Years Sex: [...] Labs on Record Electronically signed by Katlyn [facility] Conversion Medical Scientific Officer Cerner at 07/08/2022 2:56 PM CDT documented in this encounter Plan of Treatment Not on file documented as of this encounter Visit Diagnoses Not on filedocumented in this encounter
--- OUTSIDE RECORDS SUMMARY | 2024-12-31 09:55 | XMS_ITS | Encounter Summary ---
Author Organization [employer] ([place], [place], [place], [place]) Address [address] [place] [address] Care Team Providers Care Apprentice Plant Attendant Name Role Phone Unavailable Primary Care Provider Unavailabl e Encounter Details Date Type Department Care Team (Late st Contact Info) Description 04/08/2019 Transcribed Document [facility] [place] [address] [place] [address] ProviderTamie MD [facility] [place], [place] [address] Social History Tobacco Use Types Packs/Day Years Used Date Smoking Tobacco: Never Assessed Comments Unknown Sex and Gender Information Value Date Recorded Sex Assigned at Not on file Legal Sex Female 6:35 PM CDT Gender Identity Not on file Sexual Orientation Not on file documented as of this encounter Miscellaneous Notes * [employer] Conversion Note - Historical ProviderMD - 04/08/2019 2:15 PM ELECTRIC KNIFE OPERATOR Nursing Discharge Summary Entered On: 04/08/2019 15:30 [...] 04/08/2019 15:28 EST Electronically signed by Katlyn [facility] Conversion Coffee Taster Cerner at 07/08/2022 2:52 PM CDT documented in this encounter Plan of Treatment Not on file documented as of this encounter Visit Diagnoses Not on filedocumented in this encounter
--- OUTSIDE RECORDS SUMMARY | 2024-12-31 09:55 | XMS_ITS | Encounter Summary ---
Author Organization [employer] ([place], [place], [place], [place]) Address [address] [place] [address] Care Team Providers Care Oil Well Shooter Name Role Phone Unavailable Primary Care Provider Unavailabl e Encounter Details Date Type Department Care Team (Late st Contact Info) Description 04/06/2019 Transcribed Document [facility] [place] [address] [place] [address] ProviderTamie MD [address] [place] [address] Social History Tobacco Use Types [...] - Tamie ProviderMD - 04/06/2019 12:00 PM LENS BLOCK GAUGER Pain Assessment Entered On: 04/06/2019 17:50 EST Performed On: 04/06/2019 12:19 EST by JACKIE HILL RN Intervention Information: ibuprofen Performed by JACKIE HILL RN on 04/06/2019 11:19:00 EST ibuprofen,600mg Oral Pain Assessment Pain Assessment : Follow-up assessment Pain Intervention, Drug : Medicated Pain Improved by Intervention : Yes JACKIE HILL RN - 04/06/2019 17:49 EST Electronically signed by Katlyn [facility] Conversion Chief Minister Cerner at 07/08/2022 2:55 PM CDT documented in this encounter Plan of Treatment Not on file documented as of this encounter Visit Diagnoses Not on filedocumented in this encounter
--- OUTSIDE RECORDS SUMMARY | 2024-12-31 09:55 | XMS_ITS | Encounter Summary ---
Author Organization [employer] ([place], [place], [place], [place]) Address [address] [place] [address] Care Team Providers Care Product Development Manager Name Role Phone Unavailable Primary Care Provider Unavailabl e Encounter Details Date Type Department Care Team (Late st Contact Info) Description 04/06/2019 Transcribed Document [facility] Family Medicine [facility] [place] [address] ProviderTamie MD [address] [place] [address] Social History Tobacco Use Types [...] - Tamie ProviderMD - 04/06/2019 3:22 PM INSURANCE ACCOUNT REPRESENTATIVE UM Authorization Entered On: 04/06/2019 15:22 EST Performed On: 04/06/2019 15:22 EST by Lucila Nash Rn-Utilization Review Primary Insurance Authorization Authorization and Policy Numbers : Insurance 1 Health Plan: [facility] Policy Number: [id number] Authorization Number: Insurance Primary Name : [facility] Policy Number: [id number] Authorization Status-Primary : Denied Authorized Service Begin Date-Primary : 04/05/2019 EST Historical Authorization Comments-Primary : Comment 1: Notification of denial emailed to [facility]oz (Lucila Nash Rn-Utilization Review 04/06/2019 14:56) Comment 2: Per Loulou at Dr Nelson's office, precert was not obtained. (scheduled ) Laquita at [facility] will issue an administrative denial (Lucila Nash Rn-Utilization Review 04/06/2019 14:54) Comment 3: Delivery summary faxed to [facility] (Nash, Lucila, Rn-Utilization Review 04/05/2019 15:38) Lucila Nash Rn-Utilization Review - 04/06/2019 15:22 EST documented in this encounter Plan of Treatment Not on file documented as of this encounter Visit Diagnoses Not on filedocumented in this encounter
--- OUTSIDE RECORDS SUMMARY | 2024-12-31 09:55 | XMS_ITS | Encounter Summary ---
Author Organization [employer] ([place], [place], [place], [place]) Address [address] [place] [address] Care Team Providers Care Electrical Power Engineer Name Role Phone Unavailable Primary Care Provider Unavailabl e Encounter Details Date Type Department Care Team (Late st Contact Info) Description 04/08/2019 Transcribed Document [facility] [place] Family Medicine [address] [place] [address] ProviderTamie MD [address] [place] [address] Social History Tobacco Use Types [...] Tamie Vanegas MD - 04/08/2019 11:47 AM AUDIO VISUAL PROJECT MANAGER Patient Education Materials Follows: and Mastitis Mastitis [...] these instructions at home: Medicines ??? Take faon-iwh-gzreatu and prescription medicines only as told by [...] 07/02/2005 Document Revised: 03/08/2017 Document Reviewed: 03/08/2017 [employer] Patient Education ? 2019 [employer] Choosing to breastfeed is one of [...] smacking lips, cooing, sighing, or squeaking. ??? Uuzb-zg-ilzeq movements and sucking on fingers or hands. [...] able to be present during feedings. Your foreign law consultant can help you find a method [...] contact your health care provider or a foreign law consultant. Overall health care recommendations while ??? [...] provider before taking any medicines. These include afta-cos-uuycwcs and prescription medicines as well as vitamins [...] Talk with your health care provider or foreign law consultant if you have questions or you face problems as you breastfeed. This information is not intended to replace advice given to you by your health care provider. Make sure you discuss any questions you have with your health care provider. Document Released: 03/07/2006 Document Revised: 04/08/2017 Document Reviewed: 04/08/2017 [employer] Patient Education ? 2019 [employer] Delivery, Care After Refer to this [...] and water are not available, use hand rn flight. ? If you have a dressing, change [...] until your incision heals. Medicines ??? Take kbgy-wzt-ccipmve and prescription medicines only as told by [...] 02/09/2016 [employer] Interactive Patient Education ? 2018 [employer] documented in this encounter Plan of Treatment Not on file documented as of this encounter Visit Diagnoses Not on filedocumented in this encounter
--- OUTSIDE RECORDS SUMMARY | 2024-12-31 09:55 | XMS_ITS | Encounter Summary ---
Author Organization [employer] ([place], [place], [place], [place]) Address [address] [place] [address] Care Team Providers Care Singer Songwriter Name Role Phone Unavailable Primary Care Provider Unavailabl e Encounter Details Date Type Department Care Team (Late st Contact Info) Description 08/21/2018 Transcribed Document [facility] [place] Family Medicine [facility] [place] [address] ProviderTamie MD [address] [place] [address] Social History Tobacco Use Types Packs/Day Years Used Date Smoking Tobacco: Never Assessed Comments Unknown Sex and Gender Information Value Date Recorded Sex Assigned at Not on file Legal Sex Female 6:35 PM CDT Gender Identity Not on file Sexual Orientation Not on file documented as of this encounter Miscellaneous Notes * Cerner Conversion Note - Tamie Vangeas MD - 08/21/2018 4:00 PM CDT [place] [id number] GALA BALTAZAR :1995 Visit Time:08/21/2018 Your Visit Summary Your Care Team Admitting Physician - MARISOL BRAGA MD-JASWANT Attending Physician - MARISOL BRAGA MD-JASWANT Primary Care Physician - ABNER, UNKNOWN Referring Physician - SELF, REFERRED (REF), -UNK Your Diagnosis Excessive vomiting during Nausea Patient Portal Reminder: Be sure to sign up for the [employer] patient portal, which gives you 11/10 access to your medical information ??? including these discharge instructions ??? using your computer, smartphone, or tablet. Just go to [employer] to get started. Questions? Call . You [...] range between ( 1.0 and 7.0 ) [place] #: 0.61 K/uL -- Normal range between ( 0.24 and 0.82 ) [place] #: 0.05 K/uL -- Normal range between ( 0.04 and 0.54 ) [place] %: 9.4 % -- Normal range between [...] ) Urine Bilirubin Dipstick: Negative Urine Specific [place]: 1.023 -- Normal range between ( 1.005 [...] range between ( 3.4 and 5.0 ) [facility] 08/21/18 14:31:00 HCG Urine Qualitative: Positive [...] these instructions at home: Medicines ??? Take mxnp-otb-sdaiawj and prescription medicines only as told by [...] 04/14/2005 Document Revised: 04/07/2017 Document Reviewed: 04/07/2017 [employer] Interactive Patient Education ?? 2019 [employer]. Morning Sickness Morning sickness is when a [...] these instructions at home: Medicines ??? Take pwvi-txo-zicsxeo and prescription medicines only as told by your health care provider. Do not use any prescription, aemh-jjy-fwkwsgp, or herbal medicines for morning sickness without [...] 04/28/2007 Document Revised: 04/09/2017 Document Reviewed: 04/09/2017 [employer] Interactive Patient Education ?? 2019 [employer]Tip. Emergency Awareness and Preventative Care STROKE is [...] Assistance with quitting is available by contacting 2-888-GYWQ-NOW. This is a free resource providing counseling, [...] was given the opportunity to ask questions. Patient/Higher Level Teaching Assistant Name: Patient/Higher Level Teaching Assistant Signature: Relationship to Patient: Clinician/Hospital Higher Level Teaching Assistant Signature: Please Provide a Telephone Number Where You Can Be Reached: Is it Permissible To Leave a Message? Date: Electronically signed by Katlyn, [facility] Conversion Pilar Espinosa at 07/08/2022 2:52 PM CDT documented in this encounter Plan of Treatment Not on file documented as of this encounter Visit Diagnoses Not on filedocumented in this encounter
--- OUTSIDE RECORDS SUMMARY | 2024-12-31 09:55 | XMS_ITS | Encounter Summary ---
Author Organization [employer] ([place], [place], [place], [place]) Address [address] [place] [address] Care Team Providers Care Optometrist Assistant Name Role Phone Unavailable Primary Care Provider Unavailabl e Encounter Details Date Type Department Care Team (Late st Contact Info) Description 04/08/2019 Transcribed Document [facility] Family Medicine [address] [place] [address] ProviderTamie MD [address] [place] [address] Social History Tobacco Use Types [...] - Tamie ProviderMD - 04/08/2019 12:00 PM POISER BALANCE Pain Assessment Entered On: 04/08/2019 14:48 EST [...] the text rendition version of the form. documented in this encounter Plan of Treatment Not on file documented as of this encounter Visit Diagnoses Not on filedocumented in this encounter
--- OUTSIDE RECORDS SUMMARY | 2024-12-31 09:55 | XMS_ITS | Encounter Summary ---
Author Organization [employer] ([place], [place], [place], [place]) Address [address] [place] [address] Care Team Providers Care Balance Assembler Name Role Phone Unavailable Primary Care Provider Unavailabl e Encounter Details Date Type Department Care Team (Late st Contact Info) Description 04/06/2019 Transcribed Document [facility] [place] Family Medicine [address] [place] [address] ProviderTamie MD [facility] [place] [address] Social History Tobacco Use Types [...] - Tamie ProviderMD - 04/06/2019 6:00 AM VAC PRESS OPERATOR Pain Assessment Entered On: 04/06/2019 6:25 EST [...]
--- OUTSIDE RECORDS SUMMARY | 2024-12-31 09:55 | XMS_ITS | Encounter Summary ---
Author Organization [employer] ([place], [place], [place], [place]) Address [address] [place] [address] Care Team Providers Care Account Services Manager Name Role Phone Unavailable Primary Care Provider Unavailabl e Encounter Details Date Type Department Care Team (Late st Contact Info) Description 04/06/2019 Transcribed Document [facility] [place] Family Medicine [facility] [place] [address] ProviderTamie MD [address] [place] [address] Social History Tobacco Use Types [...] - Tamie ProviderMD - 04/06/2019 2:56 PM GENERAL SURGEON UM Authorization Entered On: 04/06/2019 14:57 EST Performed On: 04/06/2019 14:56 EST by Lucila Nash Rn-Utilization Review Primary Insurance Authorization Authorization and Policy Numbers : Insurance 1 Health Plan: [facility] Policy Number: [id number] Authorization Number: Insurance Primary Name : [facility] Policy Number: [id number] Authorization Status-Primary : Notification only Authorized Service Begin Date-Primary : 04/05/2019 EST Authorization Comments-Primary : Notification of denial emailed to Trinity Muñoz Historical Authorization Comments-Primary : Comment 1: Keagan Jamil at Dr Nelson's office, precert was not obtained. (scheduled ) Laquita at [facility] will issue an administrative denial (Lucila Nash Rn-Utilization Review 04/06/2019 14:54) Comment 2: Delivery summary faxed to [facility] (Lucila Nash Rn-Utilization Review 04/05/2019 15:38) Lucila Nash Rn-Utilization Review - 04/06/2019 14:56 EST Electronically signed by [facility], [facility] Conversion Postal Delivery Officer Cerner at 07/08/2022 2:59 PM CDT documented in this encounter Plan of Treatment Not on file documented as of this encounter Visit Diagnoses Not on filedocumented in this encounter
--- OUTSIDE RECORDS SUMMARY | 2024-12-31 09:55 | XMS_ITS | Encounter Summary ---
Author Organization [employer] ([place], [place], [place], [place]) Address [address] [place] [address] Care Team Providers Care Decal Maker Name Role Phone Unavailable Primary Care Provider Unavailabl e Encounter Details Date Type Department Care Team (Late st Contact Info) Description 08/21/2018 Transcribed Document [facility] [place] [facility] [place] [address] ProviderTamie MD [address] [place] [address] Social History Tobacco Use Types Packs/Day [...] : 3 - Urgent Tracking Group : [facility] ED [place] SUKH DELGADO [...] PNED ; Probability: 0 ; Diagnosis Code: [id number] ED Height and Weight Height Source : Stated Height Entry Format : [place] Height, Feet : 5 ft(Converted to: 152 cm, 60 Inch) Height, Inches : 2 Inch(Converted to: 0 ft 2 Inch, 5.08 cm) Clinical Height : 157.48 cm Weight Source, ED : Standing scale Weight Entry Format : [place] Weight, Pounds : 153 lb Clinical Dosing Weight : 69.55 kg Body Surface Area (BSA) : 1.71 m2 Body Mass Index : 28 kg/m2 (HI) [place] Body Weight (IBW) : 49.73 kg SUKH DELGADO RN - 08/21/2018 14:11 EDT documented in this encounter Plan of Treatment Not on file documented as of this encounter Visit Diagnoses Not on filedocumented in this encounter
--- OUTSIDE RECORDS SUMMARY | 2024-12-31 09:55 | XMS_ITS | Encounter Summary ---
Author Organization [employer] ([place], [place], [place], [place]) Address [address] [place] [address] Care Team Providers Care Barn And Property Manager Name Role Phone Unavailable Primary Care Provider Unavailabl e Encounter Details Date Type Department Care Team (Late st Contact Info) Description 04/06/2019 Transcribed Document [facility] [place] Family Medicine [address] [place] [address] ProviderTamie MD [facility], [facility] [place], [place] [address] Social History Tobacco Use Types Packs/Day Years Used Date Smoking Tobacco: Never Assessed Comments Unknown Sex and Gender Information Value Date Recorded Sex Assigned at Not on file Legal Sex Female 6:35 PM CDT Gender Identity Not on file Sexual Orientation Not on file documented as of this encounter Miscellaneous Notes * [employer]ner Conversion Note - Tamie ProviderMD - 04/06/2019 12:00 AM HOSPICE BEREAVEMENT COORDINATOR Pain Assessment Entered On: 04/06/2019 4:12 EST [...]
--- OUTSIDE RECORDS SUMMARY | 2024-12-31 09:55 | XMS_ITS | Clinical Summary ---
Author Organization [employer] ([place], [place], [place], [place]) Address [address] [place] [address] Care Team Providers Care Computer Help Desk Representative Name Role Phone Unavailable Primary Care Provider [...] Date Hema rded Speak language other than Vietnamese at home Not on file 04/08/2023 Want [...] [place] [id number] [employer] [facility] [employer]
--- OUTSIDE RECORDS SUMMARY | 2024-12-31 09:55 | XMS_ITS | Encounter Summary ---
Author Organization [employer] ([place], [place], [place], [place]) Address [address] [place] [address] Care Team Providers Care Cad Design Engineer Name Role Phone Unavailable Primary Care Provider Unavailabl e Encounter Details Date Type Department Care Team (Late st Contact Info) Description 04/05/2019 Transcribed Document [facility] [place] [facility] [place] [address] ProviderTamie MD [address] [place] [address] Social History Tobacco Use Types Packs/Day Years Used Date Smoking Tobacco: Never Assessed Comments Unknown Sex and Gender Information Value Date Recorded Sex Assigned at Not on file Legal Sex Female 6:35 PM CDT Gender Identity Not on file Sexual Orientation Not on file documented as of this encounter Miscellaneous Notes * Cerner Conversion Note - Tamie ProviderMD - 04/05/2019 10:45 AM BATTERY INSPECTOR Admission Data, OB Entered On: 04/05/2019 10:46 EST Performed On: 04/05/2019 10:45 EST by CYNTHIA STEINER RN Advance Directive Patient has Advance Directive *Q : No, patient refuses Advance Directive information CYNTHIA STEINER RN - 04/05/2019 10:45 EST Height and Weight Height Source : Stated Height Entry Format : [place] Height, Feet : 5 ft(Converted to: 152 cm, 60 Inch) Clinical Height : 157.48 cm Height, Inches : 2 Inch(Converted to: 0 ft 2 Inch, 5.08 cm) Weight Source : Standing scale Weight Entry Format : [place] Weight, Pounds : 171 lb Clinical Dosing Weight : 77.73 kg Body Surface Area (BSA) : 1.79 m2 Body Mass Index : 31.3 kg/m2 (HI) [place] Body Weight (IBW) : 49.73 kg CYNTHIA [...] CYNTHIA STEINER RN - 04/05/2019 10:45 EST [place] Suicide Severity Rating Scale (C-SSRS) CSSRS Past [...]
--- OUTSIDE RECORDS SUMMARY | 2024-12-31 09:55 | XMS_ITS | Encounter Summary ---
Author Organization [employer] ([place], [place], [place], [place]) Address [address] [place] [address] Care Team Providers Care Life Insurance Underwriter Name Role Phone Unavailable Primary Care Provider Unavailabl e Encounter Details Date Type Department Care Team (Late st Contact Info) Description 04/06/2019 Transcribed Document [facility] [place] Family Medicine [address] [place] [address] ProviderTamie MD [address] [place], [place] [address] Social History Tobacco Use Types Packs/Day Years Used Date Smoking Tobacco: Never Assessed Comments Unknown Sex and Gender Information Value Date Recorded Sex Assigned at Not on file Legal Sex Female 6:35 PM CDT Gender Identity Not on file Sexual Orientation Not on file documented as of this encounter Miscellaneous Notes * [employer]ner Conversion Note - Historical ProviderMD - 04/06/2019 2:53 PM OVERHEAD WORKER UM Authorization Entered On: 04/06/2019 14:53 EST Performed On: 04/06/2019 14:53 EST by Lucila Nash Rn-Utilization Review Primary Insurance Authorization Authorization and Policy Numbers : Insurance 1 Health Plan: [employer] Policy Number: [id number] Authorization Number: Insurance Primary Name : [employer] Policy Number: [id number] Authorization Status-Primary : Notification only Authorized Service Begin Date-Primary : 04/05/2019 EST Historical Authorization Comments-Primary : Comment 1: [facility] (Lucila Nash Rn-Utilization Review 04/05/2019 15:38) Lucila Nash Rn-Utilization Review - 04/06/2019 14:53 EST documented in this encounter Plan of Treatment Not on file documented as of this encounter Visit Diagnoses Not on filedocumented in this encounter
--- OUTSIDE RECORDS SUMMARY | 2024-12-31 09:55 | XMS_ITS | Encounter Summary ---
Author Organization [employer] ([place], [place], [place], [place]) Address [address] [place] [address] Care Team Providers Care Network Support Specialist Name Role Phone Unavailable Primary Care Provider Unavailabl e Encounter Details Date Type Department Care Team (Late st Contact Info) Description 04/09/2019 Transcribed Document [facility] [place] [address] [place] [address] ProviderTamie MD [address] [place] [address] Social History Tobacco Use Types [...] - Tamie ProviderMD - 04/09/2019 8:36 AM PRODUCT SALES REPRESENTATIVE UM Authorization Entered On: 04/09/2019 8:39 EST Performed On: 04/09/2019 8:36 EST by FLORES LOVETT RN Primary Insurance Authorization Authorization and Policy Numbers : Insurance 1 Health Plan: [facility] Policy Number: [id number] Authorization Number: Insurance Primary Name : [facility] Policy Number: [id number] Authorization Status-Primary : Denied Authorized Service Begin [...] not obtained. (scheduled ) Laquita at [facility] will issue an administrative denial (Lucila Nash, Rn-Utilization Review 04/06/2019 14:54) Comment 3: [facility] (Lucila Nash, Sherri-Utilization Review 04/05/2019 15:38) FLORES LOVETT RN - 04/09/2019 8:36 EST Electronically signed by [facility] Conversion Reaming Machine Tender Cerner at 07/08/2022 2:46 PM CDT documented in this encounter Plan of Treatment Not on file documented as of this encounter Visit Diagnoses Not on filedocumented in this encounter
== END 2024-12-28 23:59 ==
LOC: LAB.DROPOF 12-31 09:50
PROVIDERS: Visit Provider Nurse Practitioner
DX: J06.9 Acute upper respiratory infection, unspecified (principal); J02.9 Acute pharyngitis, unspecified
CPT/HCPCS: 87631

== ENCOUNTER 2025-03-01 15:54 | Outpatient (CLI) | payer MEDICAID, SELFPAY ==
--- NOTE | 2025-03-01 15:56 | XR_ITS ---
PROCEDURE INFORMATION: Exam: XR Chest Exam date and time: 03/01/2025 3:57 PM Age: 29 years old Clinical indication: Cough; Additional info: Cough x4 weeks TECHNIQUE: Imaging protocol: Radiologic exam of the chest. Views: 2 views. Total images: 2 COMPARISON: CR XR CHEST PORTABLE 12/11/2024 11:07 AM FINDINGS: Lungs: Unremarkable. No consolidation. No pulmonary vascular congestion or edema. Pleural spaces: Unremarkable. No pleural effusion. No pneumothorax. Heart/Mediastinum: Unremarkable. No cardiomegaly. No mediastinal widening or hilar enlargement. Bones/joints: Unremarkable. IMPRESSION: No acute findings.
== END 2025-03-01 23:59 | disposition home or self-care (01) ==
LOC: RAD 15:54
PROVIDERS: Visit Provider Student in an Organized Health Care Education/Training Program
DX: R05.9 Cough, unspecified (principal)
CPT/HCPCS: 71046